=== PATIENT | female | born 1985 | race Caucasian/White ===

== ENCOUNTER 2021-07-08 20:24 | Emergency (ER) | payer OTHER, SELFPAY ==
[2021-07-08 21:51] VITALS: BP 119/93; PULSE 72; RESP 18; TEMP 36.8; O2SAT 99; BMI 33.3
--- NOTE | 2021-07-08 22:25 | ED.GENADULT ---
HPI - General Adult General Chief complaint: General Medical Stated complaint: dental pain/rash Time Seen by Provider: 07/08/21 22:15 Source: patient Mode of arrival: ambulatory Limitations: no limitations History of Present Illness HPI narrative: 36 y/o female presenting with multiple complaints. She reports several days of left lower dental pain, worse with chewing. She has a known broken tooth in this location and has an appointment with her dentist on Tuesday. She is worried she won't make it until then because of the pain. No fevers or facial swelling. She also c/o bilateral itchy rash in both of her underarms. It is red, raised and itchy. No new deodorant, lotions, soaps or creams. MD complaint: dental pain and rash Onset (ago): day(s) (2) Location: face, left, right and upper extremity Radiation: non-radiation Severity: moderate Severity scale (1-10): 6 Quality: aching Pain Consistency: constant Relieving factors: none Exacerbating factors: none Associated symptoms: cough and rash Treatments prior to arrival: NSAID Related Data Previous Rx's Medication Instructions Recorded hydrocortisone 2.5 % topical cream 1 appl TOPICAL TID #28 g 07/08/21 ibuprofen 600 mg tablet 600 mg PO Q8H PRN #20 tab 07/08/21 penicillin V potassium 500 mg 500 mg PO TID 7 Days #21 tab 07/08/21 tablet tramadol 50 mg tablet 50 mg PO Q8H PRN #6 tab 07/08/21 Allergies Allergy/AdvReac Type Severity Reaction Status Date / Time No Known Allergies Allergy Verified 07/08/21 21:50 [No Known Allergies*] Review of Systems Review of Systems: Constitutional: No Fever, No Chills ENT/Mouth: No sore throat, +dental pain Eyes: No Eye Pain, No Swelling, No Redness Cardiovascular: No Chest Pain, No SOB, No Orthopnea, No Edema Respiratory: No Cough, No Sputum, No Wheezing, No dyspnea Gastrointestinal: No Nausea, No Vomiting, No Diarrhea, No abdominal Pain Genitourinary: No Dysuria, No Urinary Frequency, No Hematuria Musculoskeletal: No joint pain, No Myalgias Skin: No Skin Lesions, + rash Neuro: No Weakness, No Numbness, No Dizziness, No Headache Heme/Lymph: No Bruising, No Lymphadenopathy PMF Past Medical History Medical History (Updated 07/09/21 @ 00:01 by Paul Francis) No pertinent past medical history Social History Social History Advance Directives: No Advance Directives Information Provided: No Patient : No Physical Exam Vital Signs: Vital Signs: Last Vital Signs Temp 98.2 F 07/08/21 21:51 Pulse 72 07/08/21 21:51 Resp 18 07/08/21 21:51 BP 119/93 H 07/08/21 21:51 Pulse Ox 99 07/08/21 21:51 Body Mass Index 33.3 Appearance: Alert. Oriented X3. No acute distress. Eyes: Pupils equal, round and reactive to light. ENT: Pharynx normal. Left 3rd molar broken with exposed dentin, decaying tooth with associated gingival tenderness and erythema, no fluctuance Neck: Normal inspection. Neck supple. CVS: Normal heart rate and rhythm. Pulses normal. Respiratory: No respiratory distress. Breath sounds normal. Abdomen: Soft and nontender. +BS x4 Skin: Skin warm and dry. Normal skin color. Normal skin turgor. Bilateral axillary areas with maclopapular erythematous rash Extremities: No lower extremity edema. Neuro: Oriented X 3. Nonfocal Course Course Course Narrative: 36 y/o female presenting with dental pain and an axillary rash. No evidence of dental abscess. Will start on antibiotics, NSAID and pain meds until she can be seen by her dentist on Tuesday. Axillary rash is consistent with contact dematits, will start topical steroids. No need for systemic at this time. She is stable for d/c home with outpatient follow up. Critical Care Time Critical Care Time Critical Care Time: No Discharge Plan Discharge Clinical Impression: Toothache Patient Disposition: Home, Self-Care Instructions: Toothache (ED) Additional Instructions: Take all of the medications as prescribed. Follow up with your dentist JIM. Prescriptions: New penicillin V potassium 500 mg tablet 500 mg PO TID 7 Days Qty: 21 RF: 0 hydrocortisone 2.5 % cream 1 appl topical TID Qty: 28 RF: 0 ibuprofen 600 mg tablet 600 mg PO Q8H PRN (Reason: pain) Qty: 20 RF: 0 tramadol 50 mg tablet 50 mg PO Q8H PRN (Reason: pain) Qty: 6 RF: 0 Interventions: ED Discharge Assessment Last Done: 07/08/21 23:57 Discharge Date/Time: 07/08/21 23:57
[2021-07-08] MEDS: Penicillin V Potassium 250 MG TABLET 500 MG PO (23:20)
[2021-07-08] MEDS: Ibuprofen 600 MG TABLET PO (23:20)
== END 2021-07-08 23:57 | disposition home or self-care (01) ==
PROVIDERS: Emergency Provider Internal Medicine; PCP Internal Medicine
DX: K08.89 Other specified disorders of teeth and supporting structures (principal); Z79.899 Other long term (current) drug therapy
CPT/HCPCS: 99283

== ENCOUNTER 2021-10-30 11:34 | Outpatient (REF) | payer OTHER, SELFPAY ==
[2021-10-30 12:50] LABS: Binax Internal Control QC Valid; Binax Now Covid-19 Ag Negative (Negative)
== END 2021-10-30 11:35 | disposition home or self-care (01) ==
LOC: HO.LAB 11:34
PROVIDERS: Visit Provider Internal Medicine
DX: Z20.822 Contact with and (suspected) exposure to COVID-19 (principal)
CPT/HCPCS: 36415; C9803

== ENCOUNTER → 2022-11-24 11:08 | Outpatient (BNVA) | payer OTHER, SELFPAY | PROVIDERS: PCP Internal Medicine; Visit Provider Physician Assistant Surgical | DX: Z13.89 Encounter for screening for other disorder (principal) ==

== ENCOUNTER → 2022-11-26 09:56 | Outpatient (BNVA) | payer OTHER, SELFPAY | PROVIDERS: PCP Internal Medicine; Referring Provider Internal Medicine; Visit Provider Physician Assistant Surgical | DX: E66.9 Obesity, unspecified (principal); Z68.35 Body mass index [BMI] 35.0-35.9, adult | CPT/HCPCS: 99202 ==

== ENCOUNTER 2022-12-02 09:04 | Outpatient (REF) | payer OTHER, SELFPAY ==
--- NOTE | ~2022-12-02 | XR_ITS ---
EXAMINATION: XR chest 2V CLINICAL INFORMATION: Reason for Exam E66.9 - Obesity, unspecified COMPARISON: None TECHNIQUE: 2 views of the chest FINDINGS: Clear lungs. No pneumothorax or pleural effusion. Normal cardiomediastinal silhouette. XR/XR chest 2V IMPRESSION: * Clear lungs.
--- NOTE | 2022-12-02 09:08 | ECG_ITS ---
Test Reason : E66.9 Obesity Blood Pressure : / mmHG Vent. Rate : 089 BPM Atrial Rate : 089 BPM P-R Int : 126 ms QRS Dur : 088 ms QT Int : 344 ms P-R-T Axes : 048 046 -01 degrees QTc Int : 418 ms Normal sinus rhythm Normal ECG No previous ECGs available Referred By: Guillermo Thorne Electronically Signed By:SARAH ORTIZ MD
[2022-12-02 09:25] LABS: MANUAL DIFF FLAG NO
[2022-12-02 09:47] LABS: Basophils Percent Auto 0.5 % (0-2); Eosinophils Absolute Auto 0.1 X10*3/uL (0.0-0.4); Eosinophils Percent Auto 1.3 % (0-4); Hematocrit 37.8 % (37.0-47.0); Hemoglobin 12.5 g/dl (12.0-16.0); Imm Gran Abs Auto 0.03 X10*3/uL (0.00-0.03); Imm Gran Pct Auto 0.4 % (0.0-0.4); Lymphocytes Absolute Auto 1.4 X10*3/uL (1.2-4.9); Lymphocytes Percent Auto 16.3 % (20-40); Mean Corpuscular HGB Conc 33.1 g/dl (31.0-35.0); Mean Corpuscular Hemoglobin 27.7 pg (27.0-33.0); Mean Corpuscular Volume 83.8 fL (80.0-98.0); Monocytes Absolute Auto 0.7 X10*3/uL (0.1-1.2); Monocytes Percent Auto 7.8 % (2-11); Neutrophils Absolute Auto 6.2 x10*3/uL (2.0-8.3); Neutrophils Percent Auto 73.7 % (45-73); Platelet Count 153 X10*3/uL (160-400); Red Blood Count 4.51 X10*6/uL (4.20-5.50); Red Cell Distribution Width 13.4 % (11.0-16.0); White Blood Count 8.4 X10*3/uL (4.8-10.8)
[2022-12-02 10:50] LABS: Estimated Average Glucose 94 mg/dL; Hemoglobin A1c % 4.9 %
[2022-12-02 10:59] LABS: Alanine Aminotransferase 71 U/L (0-31); Albumin Level 4.5 g/dL (3.5-5.0); Alkaline Phosphatase 66 U/L (39-117); Anion Gap 13 (12-20); Aspartate Amino Transferase 33 U/L (5-31); Bilirubin Total 1.3 mg/dL (0.0-1.0); Blood Urea Nitrogen 20 mg/dL (9-16); Calcium 9.6 mg/dL (8.4-10.2); Carbon Dioxide 26 mmol/L (22-29); Chloride 104 mmol/L (96-108); Cholesterol 165 mg/dL; Estimated Glomerular Filt Rate > 60; Glucose Random 85 mg/dL (60-115); HDL Cholesterol 44 mg/dL; Iron 46 mcg/dL (30-160); LDL Cholesterol Calculated 85 mg/dl; Percent Iron Saturation 15 % (15-50); Potassium 4.4 mmol/L (3.3-5.1); Sodium 139 mmol/L (135-145); Total Iron Binding Capacity 302 mcg/dL (228-428); Total Protein 7.8 g/dL (6.5-8.0); Triglycerides 182 mg/dL; Unsaturated Iron Binding 256 ug/dL
[2022-12-02 11:32] LABS: Ferritin 182 ng/mL (10-122); Folate 13.6 ng/mL (> or = 4.0); Insulin 11 uU/mL (2-29); TSH reflex Free T4 0.55 uIU/mL (0.32-4.0); Vitamin B12 492 pg/mL (200-900)
[2022-12-06 13:14] LABS: Calcium (PTHI) 9.6 mg/dL (8.6-10.2); PTHI 48 pg/mL (16-77)
[2022-12-07 00:19] LABS: Zinc 74 mcg/dL (60-130)
[2022-12-09 01:03] LABS: Vitamin A 49 mcg/dL (38-98)
[2022-12-10 16:42] LABS: Vitamin B1 10 nmol/L (8-30)
== END 2022-12-02 09:05 | disposition home or self-care (01) ==
LOC: HO.XRAY 09:04
PROVIDERS: PCP Internal Medicine; Visit Provider Physician Assistant Surgical
DX: E66.9 Obesity, unspecified (principal)
CPT/HCPCS: 36415; 71046; 80053; 80061; 82306; 82607; 82728; 82746; 83036; 83525; 83540; 83970; 84425; 84443; 84590; 84630; 85025; 86140; 93005

== ENCOUNTER → 2022-12-20 09:41 | Outpatient (BNVA) | payer MEDICAID, SELFPAY | PROVIDERS: PCP Internal Medicine; Visit Provider Dietitian, Registered | DX: E66.9 Obesity, unspecified (principal); F41.8 Other specified anxiety disorders; Z68.34 Body mass index [BMI] 34.0-34.9, adult | CPT/HCPCS: 97802 ==

== ENCOUNTER → 2022-12-28 09:42 | Outpatient (BNVA) | payer OTHER, MEDICAID, SELFPAY | PROVIDERS: PCP Internal Medicine; Visit Provider Counselor Mental Health | DX: F33.1 Major depressive disorder, recurrent, moderate (principal); E66.9 Obesity, unspecified | CPT/HCPCS: 90791 ==

== ENCOUNTER → 2022-12-31 11:06 | Outpatient (BNVA) | payer MEDICAID, SELFPAY | PROVIDERS: Visit Provider Physician Assistant Surgical | DX: Z11.0 Encounter for screening for intestinal infectious diseases (principal); E66.9 Obesity, unspecified; Z68.33 Body mass index [BMI] 33.0-33.9, adult | CPT/HCPCS: 99211; 99212 ==

== ENCOUNTER 2022-12-31 18:46 | Outpatient (REF) | payer OTHER, SELFPAY ==
[2023-01-02 12:07] LABS: H Pylori Breath Test Negative (Negative)
== END 2022-12-31 18:47 | disposition home or self-care (01) ==
LOC: HO.US 18:46
PROVIDERS: Visit Provider Physician Assistant Surgical
DX: Z01.818 Encounter for other preprocedural examination (principal); E66.9 Obesity, unspecified; K21.9 Gastro-esophageal reflux disease without esophagitis
CPT/HCPCS: 36415; 83013

== ENCOUNTER → 2023-01-05 08:54 | Outpatient (BNVA) | payer MEDICAID, SELFPAY | PROVIDERS: Visit Provider Surgery | DX: E66.9 Obesity, unspecified (principal); E78.00 Pure hypercholesterolemia, unspecified; F33.1 Major depressive disorder, recurrent, moderate; Z68.33 Body mass index [BMI] 33.0-33.9, adult; Z72.0 Tobacco use | CPT/HCPCS: 99212 ==

== ENCOUNTER → 2023-01-18 13:13 | Outpatient (BNVA) | payer MEDICAID, SELFPAY | PROVIDERS: Visit Provider Dietitian, Registered | DX: E66.9 Obesity, unspecified (principal); F41.8 Other specified anxiety disorders; Z68.32 Body mass index [BMI] 32.0-32.9, adult; Z71.3 Dietary counseling and surveillance | CPT/HCPCS: 97803 ==

== ENCOUNTER 2023-01-24 08:17 | Outpatient (REF) | payer MEDICAID, SELFPAY ==
--- NOTE | ~2023-01-24 | FL_ITS ---
PROCEDURE: XR FLUOROSCOPY UPPER GI WITH AIR CLINICAL INFORMATION: Obesity. COMPARISON: None available. TECHNIQUE: Routine upper GI air-contrast study was performed in upright and lying position. FINDINGS: Following oral administration of thick barium and effervescent granules there is normal progression of bolus from the oral cavity through the pharynx, esophagus into stomach without any obstruction or narrowing. No laryngeal penetration, aspiration or retention of barium in the pharynx. There is a small hiatal hernia in upright view. On placing patient supine and prone lying there is a small hiatal hernia with moderate gastroesophageal reflux. There is thickened mucosal pattern of the stomach without secretions likely from underlying acidity. The course, caliber and peristalsis of stomach, duodenal bulb and the sweep are normal. FLUOROSCOPY TIME: 1.1 minute DOSE AREA PRODUCT: 22.7 uGy-m2 (microgray-meter squared) FL/FL upper GI w air IMPRESSION: Small hiatal hernia with [id number] gastroesophageal reflux. Suspect hyperacidity.
== END 2023-01-24 08:18 | disposition home or self-care (01) ==
LOC: HO.XRAY 08:17
PROVIDERS: Visit Provider Physician Assistant Surgical
DX: E66.9 Obesity, unspecified (principal)
CPT/HCPCS: 74246

== ENCOUNTER → 2023-01-26 09:08 | Outpatient (BNVA) | payer MEDICAID, SELFPAY | PROVIDERS: Visit Provider Physician Assistant Surgical | DX: E66.9 Obesity, unspecified (principal); Z68.33 Body mass index [BMI] 33.0-33.9, adult | CPT/HCPCS: 99212 ==

== ENCOUNTER → 2023-01-31 08:51 | Outpatient (BNVA) | payer MEDICAID, SELFPAY | PROVIDERS: Visit Provider Surgery | DX: E66.9 Obesity, unspecified (principal); E78.00 Pure hypercholesterolemia, unspecified; F33.1 Major depressive disorder, recurrent, moderate; L30.9 Dermatitis, unspecified | CPT/HCPCS: 99212 ==

== ENCOUNTER → 2023-02-01 09:30 | Outpatient (BNVA) | payer OTHER, MEDICAID, SELFPAY | PROVIDERS: Visit Provider Counselor Mental Health ==

== ENCOUNTER → 2023-03-01 08:29 | Outpatient (BNVA) | payer MEDICAID, SELFPAY | PROVIDERS: Visit Provider Surgery | DX: E66.9 Obesity, unspecified (principal); E78.00 Pure hypercholesterolemia, unspecified; L30.9 Dermatitis, unspecified; F17.290 Nicotine dependence, other tobacco product, uncomplicated; F33.1 Major depressive disorder, recurrent, moderate; Z68.33 Body mass index [BMI] 33.0-33.9, adult | CPT/HCPCS: 99212 ==

== ENCOUNTER → 2023-03-15 09:40 | Outpatient (BNVA) | payer MEDICAID, SELFPAY | PROVIDERS: Visit Provider Physician Assistant Surgical | DX: E66.9 Obesity, unspecified (principal); Z68.33 Body mass index [BMI] 33.0-33.9, adult; Z72.0 Tobacco use | CPT/HCPCS: 99212 ==

== ENCOUNTER → 2023-03-25 12:52 | Outpatient (BNVA) | payer MEDICAID, SELFPAY | PROVIDERS: Visit Provider Surgery | DX: E66.9 Obesity, unspecified (principal); E78.00 Pure hypercholesterolemia, unspecified; F33.1 Major depressive disorder, recurrent, moderate; L30.9 Dermatitis, unspecified; Z72.0 Tobacco use; Z68.34 Body mass index [BMI] 34.0-34.9, adult | CPT/HCPCS: 99212 ==

== ENCOUNTER 2023-04-05 10:30 | Outpatient (REF) | payer MEDICAID, SELFPAY ==
--- NOTE | ~2023-04-05 | US_ITS ---
EXAMINATION: US COMPLETE ABDOMEN WITH LIVER ELASTOGRAPHY CLINICAL INFORMATION: Obesity. COMPARISON: None available. TECHNIQUE: Real-time imaging of the abdominal viscera. Noninvasive ultrasound liver fibrosis assessment is performed using Julita ElastPQ point quantification shear wave elastography (2D-SWE) with a C5-2 MHz transducer. Multiple elastography samples are obtained. FINDINGS: PANCREAS: The visualized pancreatic head are normal in appearance. The remainder of the pancreas is obscured from visualization by the overlying bowel gas. ABDOMINAL AORTA: The proximal, middle, and distal aortic segments are normal in caliber. INFERIOR VENA CAVA: Visualized portions are normal. LIVER: The liver demonstrates normal size, contour and diffuse increased echogenicity. No focal lesion or intrahepatic biliary duct dilatation. The right lobe measures 17.6 cm in length. The left lobe measures 10.2 cm in length. Portal flow is hepatopedal. Shear wave liver elastography median stiffness is 1.47 m/s (reference: normal median stiffness is 1.3 m/s or less). IQR/median stiffness to assess sampling precision is 0.06 (reference: good quality data set is IQR/median stiffness of 0.15 or less). GALLBLADDER: Normal. The gallbladder is physiologically distended without evidence of stones, sludge, polyps, wall thickening or pericholecystic fluid. COMMON BILE DUCT: Normal in caliber measuring 0.2 cm in diameter. RIGHT KIDNEY: Normal. No hydronephrosis. No renal calculi or focal parenchymal lesions. The kidney measures 9.4 cm in maximum dimension. LEFT KIDNEY: Normal. No hydronephrosis. No renal calculi or focal parenchymal lesions. The kidney measures 11.2 cm in maximum dimension. SPLEEN: Normal. The spleen measures 13.9 cm in maximum dimension. FREE FLUID: None. US/US abdomen comp w elastography IMPRESSION: Diffuse hepatic steatosis without focal lesion. Borderline splenomegaly. Rest of the abdominal ultrasound is unremarkable. 2. Liver elastography: Median liver stiffness measures 1.47 m/s corresponding to cACLD (ruled out). REFERENCE: Society of Radiologists in Ultrasound Liver Stiffness Thresholds (2019): LIVER STIFFNESS THRESHOLDS: *Liver Stiffness equal or less than 1.3 m/s: High probability of being normal. *Liver Stiffness less than 1.7 m/s: In the absence of other known clinical signs, rules out compensated advanced chronic liver disease. *Liver Stiffness 1.7-2.1 m/s: Suggestive of compensated advanced chronic liver disease but need further test for confirmation. *Liver Stiffness over 2.1 m/s: Rules in compensated advanced chronic liver disease. *Liver Stiffness over 2.4 m/s: Suggestive of clinically significant portal hypertension. QUALITY OF DATA SET: *IQR/Median value equal or less than 0.15 implies a quality data set. *IQR/Median value over 0.15 implies a poor quality data set. SIGNIFICANT CHANGE FROM PRIOR EXAM: Significant change if liver stiffness measurement is 10% or greater from prior exam. OTHER CONSIDERATIONS: The stage of liver fibrosis may be overestimated in the setting of acute hepatitis, liver inflammation, elevated liver function tests, hepatic vascular congestion, obstructive cholestasis, non-fasting state, and infiltrative diseases such as amyloidosis and lymphoma. In some patients with NAFLD, the liver stiffness thresholds for compensated advanced chronic liver disease may be lower. In causes other than viral hepatitis and NAFLD, liver stiffness thresholds are not well established.
== END 2023-04-05 10:31 | disposition home or self-care (01) ==
LOC: HO.US 10:30
PROVIDERS: Visit Provider Physician Assistant Surgical
DX: Z01.818 Encounter for other preprocedural examination (principal); E66.9 Obesity, unspecified; K21.9 Gastro-esophageal reflux disease without esophagitis
CPT/HCPCS: 76705; 76981

== ENCOUNTER 2023-04-27 09:32 | Outpatient (REF) | payer MEDICAID, SELFPAY ==
[2023-05-03 20:43] LABS: Cotinine, U <2 ng/mL; Nicotine, U <2 ng/mL
== END 2023-04-27 09:33 | disposition home or self-care (01) ==
LOC: HO.LAB 09:32
PROVIDERS: PCP Student in an Organized Health Care Education/Training Program; Visit Provider Surgery
DX: E66.9 Obesity, unspecified (principal); E78.00 Pure hypercholesterolemia, unspecified; F33.1 Major depressive disorder, recurrent, moderate; N76.0 Acute vaginitis; Z72.0 Tobacco use; Z68.34 Body mass index [BMI] 34.0-34.9, adult
CPT/HCPCS: 80323; 99212

== ENCOUNTER 2023-05-06 13:10 | Outpatient (AMB) | payer MEDICAID, SELFPAY ==
[2023-05-06 13:12] VITALS: BP 140/73; PULSE 77; TEMP 36.6; O2SAT 97; BMI 34.4
--- NOTE | 2023-05-06 13:12 | A.OFFVIS_ITS ---
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 They were last seen in the office on 03/15/23, recorded weight at that time was 185 pounds, with a BMI of 33.8. Today's weight is 188 pounds and BMI is 34.4. There has been a weight loss of 3.6 pounds since initiating the surgical weight loss program on 11/26/22 with a total body weight loss of 1.87 %. Pre op work up completed as follows: SWL classes:? 05/31 BH appts: cleared-02/01/23 ? ? RD appts: cleared-01/18/23 Labs: 12/02/22-low D, slightly low plt H. pylori: 12/31/22 CXR: 12/02/22-nad EK12/02/22-normal ABD U/S: 03/16/23 UGI: 01/24/23-sm HH, mod-large GERD The patient reports she is no longer smoking and has had increased anxiety and she just saw psych and is going to have a change in her medication. She has been eating more due to the anxiety. She is snacking between meal plan. chips, potatoes, cheese. She quit smoking 3 days ago Current meal plan includes: 3 Orgain shakes, (2 scoop in 8-10 oz low fat unsweetened almond milk in the first shake, and 1 scoop in the next two). First shake at 7am-9am Second shake at 11am-1pm Dinner at 4pm (7 forks of protein and 7 forks of salad/vegetables). Third shake at 8pm-10pm. Drinking 64 oz of water Current exercise plan includes: stationary bike, or treadmill, 3 x per week, 250-325 calories PFSH Medical History No pertinent past medical history Surgical History Hx of section Family History Mother Hypertension Diabetes High cholesterol Father Diabetes High cholesterol Hypertension Brother High cholesterol Sister No problems noted. Daughter No problems noted. Son Chromosome 7q11.23 duplication syndrome Social History Alcohol intake: never Patient Tobacco Use Status: Former Tobacco user Tobacco use type: Smokeless Tobacco Review of Systems Const All systems reviewed & are unremarkable except as noted in HPI and below Physical Exam Const General: healthy appearing and no acute distress Resp Effort & Inspection: normal respiratory effort Auscultation: clear to auscultation bilaterally Cardio Rate: regular rate Rhythm: regular rhythm GI Auscultation: normal bowel sounds Extrem General: Yes normal to inspection Assessment & Plan Assessment & Plan (1) Obesity (BMI 30-39.9): Code(s): E66.9 - Obesity, unspecified Plan: Nicotine test confirmed quit smoking Encouraged to stick to the meal plan States she cannot get to the gym due to childcare but has a bike at home Encouraged to use stationary bike at home daily for 400 calories. RTC 1 month Text if any questions Expect 10 pound loss in next month Coding Level of Care Code Est Pt Level 3 (21416) Diagnoses Obesity (BMI 30-39.9) E66.9
== END 2023-05-06 13:30 | disposition home or self-care (01) ==
PROVIDERS: Visit Provider Physician Assistant Surgical
DX: E66.9 Obesity, unspecified (principal)
CPT/HCPCS: 99213

== ENCOUNTER → 2023-05-06 13:10 | Outpatient (BNVA) | payer MEDICAID, SELFPAY | PROVIDERS: Visit Provider Physician Assistant Surgical | DX: E66.9 Obesity, unspecified (principal); Z68.34 Body mass index [BMI] 34.0-34.9, adult | CPT/HCPCS: 99213 ==

== ENCOUNTER 2023-06-03 08:14 | Outpatient (AMB) | payer MEDICAID, SELFPAY ==
[2023-06-03 08:18] VITALS: BP 137/81; PULSE 78; TEMP 36.4; O2SAT 96; BMI 34.2
--- NOTE | 2023-06-03 08:18 | MHC.OFFVISWM ---
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 They were last seen in the office on 05/06/23, recorded weight at that time was 188 pounds, with a BMI of 34.4.? Today's weight is 187.6 pounds and BMI is 34.3.? There has been a weight loss of 4 pounds since initiating the surgical weight loss program on 11/26/22 with a total body weight loss of 2 %. Pre op work up completed as follows: SWL classes:? 05/31 BH appts: cleared-02/01/23 ? ? RD appts: cleared-01/18/23 Labs: 12/02/22-low D, slightly low plt H. pylori: 12/31/22 CXR: 12/02/22-nad EK12/02/22-normal ABD U/S: 03/16/23 UGI: 01/24/23-sm HH, mod-large GERD The patient reports she is no longer smoking and has had increased anxiety.? She has been having 2 shakes (2 scoops, 1 scoop) and meal. Some cookies and chips between She just finished a 2 week course of prednisone for ecezma. Current meal plan includes: 3 Orgain shakes, (2 scoop in 8-10 oz low fat unsweetened almond milk in the first shake, and 1 scoop in the next two). First shake at 7am-9am Second shake at 11am-1pm Dinner at 4pm (7 forks of protein and 7 forks of salad/vegetables). Third shake at 8pm-10pm. Drinking 64 oz of water Current exercise plan includes: stationary bike, or treadmill, 2-3 x per week, 325 calories PFS Medical History No pertinent past medical history Surgical History Hx of section Family History Mother Hypertension Diabetes High cholesterol Father Diabetes High cholesterol Hypertension Brother High cholesterol Sister No problems noted. Daughter No problems noted. Son Chromosome 7q11.23 duplication syndrome Social History Alcohol intake: never Patient Tobacco Use Status: Former Tobacco user Tobacco use type: Smokeless Tobacco Review of Systems Const All systems reviewed & are unremarkable except as noted in HPI and below Physical Exam Vital Signs: Last Vital Signs Temp 97.6 F 06/03/23 08:18 Pulse 78 06/03/23 08:18 BP 137/81 06/03/23 08:18 Pulse Ox 96 06/03/23 08:18 Oxygen Delivery Method Room Air 06/03/23 08:18 BMI result Body Mass Index 34.2 Const General: healthy appearing and no acute distress Resp Effort & Inspection: normal respiratory effort Auscultation: clear to auscultation bilaterally Cardio Rate: regular rate Rhythm: regular rhythm GI Auscultation: normal bowel sounds Extrem General: Yes normal to inspection Assessment & Plan Assessment & Plan (1) Obesity (BMI 30-39.9): Code(s): E66.9 - Obesity, unspecified Plan: Discussed 6 months and 4 pound weight loss. She did have mult courses of prednisone and that didn't help She states she wants one more chance to prove she can commit to the program. Will have her RTC 6 weeks with goal of 12-18 pound loss Discussed sticking to the plan Discussed increasing exercise for goal of 2000 yanira per week. Coding Level of Care Code Est Pt Level 3 (31214) Diagnoses Obesity (BMI 30-39.9) E66.9
== END 2023-06-03 08:55 | disposition home or self-care (01) ==
PROVIDERS: Visit Provider Physician Assistant Surgical
DX: E66.9 Obesity, unspecified (principal)
CPT/HCPCS: 99213

== ENCOUNTER → 2023-06-03 08:14 | Outpatient (BNVA) | payer MEDICAID, SELFPAY | PROVIDERS: Visit Provider Physician Assistant Surgical | DX: E66.9 Obesity, unspecified (principal); Z68.34 Body mass index [BMI] 34.0-34.9, adult | CPT/HCPCS: 99212; 99213 ==

== ENCOUNTER 2023-06-06 10:05 | Outpatient (REF) | payer MEDICAID, SELFPAY ==
[2023-06-06 11:46] LABS: MANUAL DIFF FLAG NO
[2023-06-06 12:13] LABS: Basophils Percent Auto 0.4 % (0-2); Eosinophils Absolute Auto 0.2 X10*3/uL (0.0-0.4); Eosinophils Percent Auto 2.3 % (0-4); Hematocrit 39.6 % (37.0-47.0); Hemoglobin 13.1 g/dl (12.0-16.0); Imm Gran Abs Auto 0.02 X10*3/uL (0.00-0.03); Imm Gran Pct Auto 0.3 % (0.0-0.4); Lymphocytes Absolute Auto 1.5 X10*3/uL (1.2-4.9); Lymphocytes Percent Auto 22.2 % (20-40); Mean Corpuscular HGB Conc 33.1 g/dl (31.0-35.0); Mean Corpuscular Hemoglobin 27.1 pg (27.0-33.0); Mean Platelet Volume 12.2 fL (9.4-12.3); Monocytes Absolute Auto 0.6 X10*3/uL (0.1-1.2); Neutrophils Absolute Auto 4.5 x10*3/uL (2.0-8.3); Neutrophils Percent Auto 65.8 % (45-73); Platelet Count 193 X10*3/uL (160-400); Red Blood Count 4.83 X10*6/uL (4.20-5.50); White Blood Count 6.9 X10*3/uL (4.8-10.8)
[2023-06-06 12:25] LABS: Estimated Average Glucose 88 mg/dL; Hemoglobin A1c % 4.7 %
[2023-06-06 13:02] LABS: C Reactive Protein 0.78 mg/dL (< or = 0.50)
[2023-06-06 13:09] LABS: Erythrocyte Sedimentation Rate 23 MM/HR (0-20)
[2023-06-06 13:10] LABS: Alanine Aminotransferase 30 U/L (0-31); Albumin Level 4.3 g/dL (3.5-5.0); Alkaline Phosphatase 65 U/L (39-117); Anion Gap 13 (12-20); Aspartate Amino Transferase 21 U/L (5-31); Bilirubin Total 0.9 mg/dL (0.0-1.0); Blood Urea Nitrogen 13 mg/dL (9-16); Calcium 9.7 mg/dL (8.4-10.2); Carbon Dioxide 24 mmol/L (22-29); Chloride 107 mmol/L (96-108); Cholesterol 228 mg/dL; Estimated Glomerular Filt Rate > 60; Glucose Random 79 mg/dL (60-115); HDL Cholesterol 38 mg/dL; LDL Cholesterol Calculated 139 mg/dl; Potassium 3.9 mmol/L (3.3-5.1); Sodium 140 mmol/L (135-145); TSH reflex Free T4 0.55 uIU/mL (0.32-4.0); Total Protein 8.5 g/dL (6.5-8.0); Triglycerides 259 mg/dL
[2023-06-06 13:14] LABS: Rheumatoid Factor < 13.0 IU/mL (<15.0)
[2023-06-07 04:35] LABS: Syphilis Screen Nonreactive (Nonreactive)
[2023-06-07 05:18] LABS: HBS Num1 46.63 mIU/mL (0-7.99); HBc Num1 0.12 S/CO (0.00-0.79); HBsAGNum1 0.32 S/CO (0.00-0.99); HIV AB/AG Nonreactive (Nonreactive); HIV Num 1 0.06 S/CO (0.00-0.99); Hepatitis B Core Antibody Nonreactive (Nonreactive); Hepatitis B Surface Antigen Negative (Negative); ~Hepatitis B Surface Antibody REACTIVE (Nonreactive)
[2023-06-07 05:22] LABS: ~HepC Num1 0.09 S/CO (0.00-0.79); ~Hepatitis C Antibody Nonreactive (Nonreactive)
[2023-06-10 01:34] LABS: VITAMIN D (1,25 OH) D3 49 pg/mL; Vit D (1,25-Dihydroxy) Total 49 pg/mL (18-72); Vitamin D (1,25 OH) D2 <8 pg/mL
[2023-06-10 13:18] LABS: Anti Nuclear Antibody Screen NEGATIVE (NEGATIVE)
== END 2023-06-06 10:06 | disposition home or self-care (01) ==
LOC: HO.HHCL 10:05
PROVIDERS: PCP Student in an Organized Health Care Education/Training Program; Visit Provider Internal Medicine
DX: Z00.00 Encounter for general adult medical examination without abnormal findings (principal); Z11.4 Encounter for screening for human immunodeficiency virus [HIV]; L30.9 Dermatitis, unspecified; E78.5 Hyperlipidemia, unspecified
CPT/HCPCS: 36415; 80053; 80061; 82652; 83036; 84443; 85025; 85652; 86038; 86140; 86431; 86704; 86706; 86780; 86803; 87340; 87389

== ENCOUNTER 2023-06-24 10:16 | Outpatient (REF) | payer MEDICAID, SELFPAY ==
[2023-06-24 11:40] LABS: Appearance Urine Clear; Color Urine Yellow; Glucose Urine UA Negative (Negative); Leukocyte Esterase Urine Negative (Negative); Nitrite Urine Negative (Negative); Specific Gravity - Urine 1.015 (1.005-1.025); Urine Blood Negative (Negative); Urine Ketones Negative (Negative); Urine Protein Negative (Neg-Trace)
[2023-06-24 11:44] LABS: Bacteria Urine None Seen (None Seen); Hyaline Casts Urine 0-2 /LPF (0-2); RBC Urine 0-2 /HPF (0-2); Squamous Epithelial Cell Urine 0-2 /HPF (0-2); WBC Urine 0-5 /HPF (0-5)
[2023-06-24 12:27] LABS: Alanine Aminotransferase 29 U/L (0-31); Albumin Level 4.2 g/dL (3.5-5.0); Alkaline Phosphatase 68 U/L (39-117); Anion Gap 14 (12-20); Aspartate Amino Transferase 19 U/L (5-31); Bilirubin Total 0.7 mg/dL (0.0-1.0); Blood Urea Nitrogen 20 mg/dL (9-16); Calcium 9.5 mg/dL (8.4-10.2); Carbon Dioxide 21 mmol/L (22-29); Chloride 106 mmol/L (96-108); Estimated Glomerular Filt Rate > 60; Glucose Random 115 mg/dL (60-115); Potassium 3.8 mmol/L (3.3-5.1); Sodium 137 mmol/L (135-145); Total Protein 8.2 g/dL (6.5-8.0)
[2023-06-28 15:58] LABS: Prot Elec - Albumin 4.3 g/dL (3.8-4.8); Prot Elec - Alpha1 0.3 g/dL (0.2-0.3); Prot Elec - Alpha2 0.7 g/dL (0.5-0.9); Prot Elec - Beta 1 0.5 g/dL (0.4-0.6); Prot Elec - Beta 2 0.5 g/dL (0.2-0.5); Prot Elec - Gamma 1.6 g/dL (0.8-1.7); Prot Elec - Total Protein 7.9 g/dL (6.1-8.1)
[2023-06-29 15:23] LABS: IgA 188 mg/dL (47-310); IgG 1870 mg/dL (600-1640); IgM 90 mg/dL (50-300)
[2023-06-30 07:53] LABS: PEU-Rand. Prot/Creat Ratio 150 mg/g creat (24-184); PEU-Random Ur. Gamma Globulin 0 %; PEU-Random Urine A1 Globulin 0 %; PEU-Random Urine A2 Globulin 0 %; PEU-Random Urine Albumin 100 %; PEU-Random Urine Beta Globulin 0 %; PEU-Random Urine Creatinine 60 mg/dL (20-275); PEU-Random Urine Protein 9 mg/dL (5-24)
== END 2023-06-24 10:17 | disposition home or self-care (01) ==
LOC: HO.HHCL 10:16
PROVIDERS: Visit Provider Student in an Organized Health Care Education/Training Program
DX: R77.9 Abnormality of plasma protein, unspecified (principal)
CPT/HCPCS: 80053; 81001; 82570; 82784; 84156; 84165; 84166; 86334

== ENCOUNTER 2023-07-22 09:37 | Outpatient (AMB) | payer MEDICAID, SELFPAY ==
[2023-07-22 09:06] VITALS: BMI 34.6
--- NOTE | 2023-07-22 09:06 | MHC.OFFVISWM ---
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 They were last seen in the office on 06/03/23, recorded weight at that time was 187 pounds, with a BMI of 34.2. Today's weight is 189 pounds and BMI is 34.6. There has been a weight loss of 2.6 pounds since initiating the surgical weight loss program on 11/26/22 with a total body weight loss of 1.3 %. Discussed at last visit that she has to be able to commit to her health and that the expectation is a 12-18 pound weight loss and to communicate weekly. Pre op work up completed as follows: SWL classes:? 05/31 BH appts: cleared-02/01/23 ? ? RD appts: cleared-01/18/23 Labs: 12/02/22-low D, slightly low plt H. pylori: 12/31/22 CXR: 12/02/22-nad EK12/02/22-normal ABD U/S: 03/16/23 UGI: 01/24/23-sm HH, mod-large GERD The patient reports she is no longer smoking and has had increased anxiety.? She is under increased stress as recently dx w Lupus. She has appt next week with derm for treatment. She has a therapist and is kathy to be seeing them more often now. Current meal plan includes: 3 Orgain shakes, (2 scoop in 8-10 oz low fat unsweetened almond milk in the first shake, and 1 scoop in the next two). First shake at 7am-9am Second shake at 11am-1pm Dinner at 4pm (7 forks of protein and 7 forks of salad/vegetables). Third shake at 8pm-10pm. Drinking 64 oz of water Current exercise plan includes: north in the last several weeks PFSH Medical History No pertinent past medical history Surgical History Hx of section Family History Mother Hypertension Diabetes High cholesterol Father Diabetes High cholesterol Hypertension Brother High cholesterol Sister No problems noted. Daughter No problems noted. Son Chromosome 7q11.23 duplication syndrome Social History Alcohol intake: never Patient Tobacco Use Status: Former Tobacco user Tobacco use type: Smokeless Tobacco Assessment & Plan Assessment & Plan (1) Obesity (BMI 30-39.9): Code(s): E66.9 - Obesity, unspecified Plan: Newly dx w Lupus and is going to w/d from the program at this time. May return in the future if she wishes. Telehealth Telehealth Location of provider rendering services: practice address Location of patient: address on file Patient Identification confirmed using: Name, : Yes Telehealth method: voice only Patient verbally consented to treatment: Yes Patient verbally consented to billing insurance company: Yes Patient informed of any privacy concerns related to visit: Yes Minutes spent on Phone/Video with Pt.: 10 Coding Level of Care Code Tele Est Pt Level 2 (22026) Diagnoses Obesity (BMI 30-39.9) E66.9 Time Spent (min) 12
== END 2023-07-22 09:42 | disposition home or self-care (01) ==
LOC: HO.HBS 09:37
PROVIDERS: PCP Student in an Organized Health Care Education/Training Program; Visit Provider Physician Assistant Surgical
DX: E66.9 Obesity, unspecified (principal)
CPT/HCPCS: 99212

== ENCOUNTER → 2023-07-22 09:37 | Outpatient (BNVA) | payer MEDICAID, SELFPAY | PROVIDERS: PCP Student in an Organized Health Care Education/Training Program; Visit Provider Physician Assistant Surgical ==

== ENCOUNTER 2023-07-29 09:36 | Outpatient (REF) | payer MEDICAID, SELFPAY ==
[2023-08-04 19:18] LABS: Glucose-6-Phosphate Dehydrogen 15.8 U/g Hgb (7.0-20.5)
== END 2023-07-29 09:37 | disposition home or self-care (01) ==
LOC: HO.HHCL 09:36
PROVIDERS: Visit Provider Internal Medicine
DX: L93.1 Subacute cutaneous lupus erythematosus (principal)
CPT/HCPCS: 36415; 82955; 86235

== ENCOUNTER 2023-08-31 08:53 | Outpatient (REF) | payer MEDICAID, SELFPAY ==
--- NOTE | ~2023-08-31 | XR_ITS ---
EXAMINATION: XR TIBIA AND FIBULA, LEFT CLINICAL INFORMATION: Left leg pain. COMPARISON: None available. TECHNIQUE: AP and lateral views of the left tibia and fibula were obtained. FINDINGS: Alignment is anatomic. Joint spaces are maintained. No displaced fracture or dislocation. No radiopaque foreign body. Focal soft tissue prominence distal anterior lower leg best seen on the lateral projection. XR/XR tibia fibula LT 2V IMPRESSION: Focal soft tissue prominence distal anterior lower leg without underlying bony abnormality.
== END 2023-08-31 08:54 | disposition home or self-care (01) ==
LOC: HO.HHCX 08:53
PROVIDERS: Visit Provider Student in an Organized Health Care Education/Training Program
DX: M79.605 Pain in left leg (principal)
CPT/HCPCS: 73590

== ENCOUNTER 2023-11-04 08:50 | Outpatient (REF) | payer MEDICAID, SELFPAY ==
[2023-11-04 12:22] LABS: Alanine Aminotransferase 14 U/L (0-31); Albumin Level 4.3 g/dL (3.5-5.0); Alkaline Phosphatase 67 U/L (39-117); Anion Gap 11 (12-20); Aspartate Amino Transferase 11 U/L (5-31); Bilirubin Total 0.4 mg/dL (0.0-1.0); Blood Urea Nitrogen 16 mg/dL (9-16); Calcium 9.3 mg/dL (8.4-10.2); Carbon Dioxide 24 mmol/L (22-29); Chloride 107 mmol/L (96-108); Estimated Glomerular Filt Rate > 60; Glucose Random 91 mg/dL (60-115); Potassium 3.9 mmol/L (3.3-5.1); Sodium 138 mmol/L (135-145); Total Protein 8.3 g/dL (6.5-8.0)
== END 2023-11-04 08:51 | disposition home or self-care (01) ==
LOC: HO.HHCL 08:50
PROVIDERS: Visit Provider Student in an Organized Health Care Education/Training Program
DX: I10 Essential (primary) hypertension (principal)
CPT/HCPCS: 36415; 80053

== ENCOUNTER 2023-11-30 15:56 | Outpatient (REF) | payer MEDICAID, SELFPAY ==
--- NOTE | ~2023-11-30 | XR_ITS ---
EXAMINATION: XR TIBIA AND FIBULA, LEFT CLINICAL INFORMATION: Pain after falling COMPARISON: None available. TECHNIQUE: AP and lateral views of the left tibia and fibula were obtained. FINDINGS: The bones and soft tissues are normal. No fracture. No osseous lesions. XR/XR tibia fibula LT 2V IMPRESSION: Normal left tibia and fibula.
== END 2023-11-30 15:57 | disposition home or self-care (01) ==
LOC: HO.HHCX 15:56
PROVIDERS: Visit Provider Internal Medicine
DX: M79.605 Pain in left leg (principal); Z91.81 History of falling
CPT/HCPCS: 73590

== ENCOUNTER 2024-02-13 10:05 | Outpatient (REF) | payer MEDICAID, SELFPAY ==
[2024-02-13 12:26] LABS: Cholesterol 215 mg/dL (<200); HDL Cholesterol 42 mg/dL (>40); LDL Cholesterol Calculated 117 mg/dL (<100); Triglycerides 281 mg/dL (<150)
== END 2024-02-13 10:06 | disposition home or self-care (01) ==
LOC: HO.HHCL 10:05
PROVIDERS: Visit Provider Student in an Organized Health Care Education/Training Program
DX: R03.0 Elevated blood-pressure reading, without diagnosis of hypertension (principal)
CPT/HCPCS: 36415; 80061

== ENCOUNTER → 2024-03-12 08:37 | Outpatient (REF) | payer MEDICAID, SELFPAY ==
--- NOTE | 2024-03-12 08:39 | CA_ITS ---
Transthoracic Echocardiogram Patient (Last, First, Middle): Aleta Baltazar, Gender: Female Date of : 1985 Age: 39 Procedure Date: 03/12/2024 Procedure Type: Transthoracic Echocardiogram Location: OP Height: 160.02 cm Weight: 91.17 kg BSA: 1.94 m2 Heart Rate: 68 bpm BP: 132 / 84 mmHg Fancy Stitcher: SB Referring MD: Darcie Joel MD Symptoms: R93.1 ABN.ECHO PT WITH HX OF LOW ef Study Quality: Adequate ECG Rhythm: Sinus Conclusions: - The left ventricular systolic function is low normal. The calculated ejection fraction is 54% by biplane method. - No obvious valvular pathology seen on this study. Findings Left Ventricle Normal left ventricular cavity size. There is normal left ventricular wall thickness. The left ventricular systolic function is low normal. The calculated ejection fraction is 54% by biplane method. There is no evidence of regional wall motion abnormalities. Diastolic function is normal for age. LV peak GLS -17.4% ( borderline reduced). Right Ventricle Normal right ventricular cavity size and systolic function. Atria Both atria are normal in size. Aortic Valve There is a normal trileaflet aortic valve. There is no aortic valve stenosis. There is no aortic valve regurgitation. Mitral Valve The mitral valve appears normal. There is no mitral valve regurgitation. There is no mitral valve stenosis. Pulmonic Valve The pulmonic valve is likely normal. Tricuspid Valve Normal tricuspid valve structure. There is trace tricuspid valve regurgitation. There is no evidence of pulmonary hypertension. Great Vessels The asc aorta and aortic arch are normal in size. Venous The inferior vena cava is normal in size and collapses greater than 50% with inspiration. Pericardium/Pleural There is no evidence of pericardial effusion. Prior Study Comparison No prior study available for comparison. Recommendations, Care & Conclusions No obvious valvular pathology seen on this study. Measurements 2D Linear Measurements IVSd: 0.96 0.6-0.9/0.6-1.0 cm LVIDd: 4.75 3.9-5.3/4.2-5.9 cm LVIDd Index: 2.45 2.4-3.2/2.2-3.1 cm/m2 LVIDs: 3.43 2.0-3.6 cm LVPWd: 0.76 0.7-1.1 cm LA Diam: 3.60 2.7-3.8/3.0-4.0 cm LAIDs Index: 1.86 1.5-2.3 cm/m2 LV Mass: 170.35 67-162/88-224 g LV Mass Index: 87.81 43-95/49-115 g/m2 LVOT Diam: 1.80 3.0+(-)1.3 cm 2D Systolic Function EF 4C: 57.00 >55% EF 2C: 53.20 >55% EF BiP: 54.00 >55% Mitral Valve MV Pk E: 1.15 MV PK A: 0.60 MV Decel Time: 118.00 E/A: 1.90 E'Lateral: 10.00 E'Medial: 9.46 E/E' Med: 12.20 E/E' Lat: 11.50 PHT: 35.00 MVA PHT: 6.29 Decel Starr: 9.70 Aortic Valve AoV Pk Geoff: 1.28 AoV Pk Grad: 7.00 CORAL: 1.94 LVOT LVOT Pk Geoff: 1.00 LVOT Mn Geoff: 0.69 LVOT VTI: 0.23 LVOT Pk Grad: 4.00 LVOT Mn Grad: 2.00 LVOT Diam: 1.80 LVOT Area: 2.54 Diastolic Function MV Pk E: 1.15 MV Pk A: 0.60 E/A: 1.90 E'Medial: 9.46 E/E' Med: 12.20 E' Laterial: 10.00 E/E' Lat: 11.50 Right Ventricle TAPSE (mm): 20.40 TVS' Geoff: 11.00 Tricuspid Valve TR Pk Geoff: 2.52 TR Pk Grad: 25.00 RA Press: 8.00 RVSP: 33.00 Great Vessels Aorta Sinus of Valsalva: 2.50 2.0-3.5 cm Ao Asc: 2.50 2.1-3.4 cm Ao Arch: 2.30 Pulmonary Veins Pulm Vein S/D 0.90 Pulmonary Valve PV Pk Geoff: 0.73 Peak PV Grad: 2.00 Updated in Other Vendor System with Status of Final Josh Silvestre MD electronically signed on 03/12/2024 11:55:09 AM with status of Final
== END ==
LOC: HO.CARD 08:37
PROVIDERS: PCP Student in an Organized Health Care Education/Training Program; Visit Provider Student in an Organized Health Care Education/Training Program
DX: R93.1 Abnormal findings on diagnostic imaging of heart and coronary circulation (principal)
CPT/HCPCS: 93306; 93356

== ENCOUNTER → 2024-03-12 08:39 | Outpatient (BNV) | payer MEDICAID, SELFPAY | PROVIDERS: PCP Student in an Organized Health Care Education/Training Program; Visit Provider Internal Medicine | DX: R93.1 Abnormal findings on diagnostic imaging of heart and coronary circulation (principal) | CPT/HCPCS: 93306; 93356 ==

== ENCOUNTER 2024-07-25 12:15 | Outpatient (REF) | payer MEDICAID, SELFPAY ==
[2024-07-25 14:28] LABS: C Reactive Protein 0.17 mg/dL (< or = 0.50)
[2024-07-25 14:30] LABS: Appearance Urine Clear; Color Urine Yellow; Glucose Urine UA Negative (Negative); Leukocyte Esterase Urine Negative (Negative); Nitrite Urine Negative (Negative); PH 6.5 (5.0-9.0); Urine Blood Negative (Negative); Urine Ketones Negative (Negative); Urine Protein Negative (Neg-Trace)
[2024-07-25 14:33] LABS: Creatinine Urine 130.81 mg/dL; Protein/Creatinine Ratio, Ur 0.07 (<0.2); Total Protein Urine Random 9 mg/dL (<12)
[2024-07-25 14:35] LABS: Bacteria Urine None Seen (None Seen); Hyaline Casts Urine 0-2 /LPF (0-2); RBC Urine 0-2 /HPF (0-2); WBC Urine 0-5 /HPF (0-5)
[2024-07-25 15:06] LABS: Erythrocyte Sedimentation Rate 17 MM/HR (0-20)
[2024-07-26 13:09] LABS: Complement C3 168 mg/dL (83-193)
[2024-07-26 20:33] LABS: Anti DNA DS Antibody 1 IU/mL; SM/Ribonucleoprotein Ab <1.0 NEG AI (<1.0 NEG); Smith Protein <1.0 NEG AI (<1.0 NEG)
[2024-07-27 20:13] LABS: Cardiolipin IgG Ab <2.0 GPL-U/mL; Cardiolipin IgM Ab <2.0 MPL-U/mL
[2024-07-28 22:29] LABS: PTT (LAC) Screen 29 sec (<=40)
[2024-07-30 14:04] LABS: Anti Nuclear Antibody Screen NEGATIVE (NEGATIVE)
[2024-07-31 00:49] LABS: Beta-2 Glycoprotein IgA <2.0 U/mL (<20.0); Beta-2 Glycoprotein IgG <2.0 U/mL (<20.0); Beta-2 Glycoprotein IgM <2.0 U/mL (<20.0)
[2024-08-01 06:13] LABS: DNAds, Crithidia Antibody Negative (Negative)
== END 2024-07-25 12:16 | disposition home or self-care (01) ==
LOC: HO.LAB 12:15
PROVIDERS: PCP Student in an Organized Health Care Education/Training Program; Visit Provider Student in an Organized Health Care Education/Training Program
DX: L93.1 Subacute cutaneous lupus erythematosus (principal); Z51.81 Encounter for therapeutic drug level monitoring; Z79.52 Long term (current) use of systemic steroids; Z79.899 Other long term (current) drug therapy
CPT/HCPCS: 36415; 81001; 82570; 84156; 85597; 85598; 85613; 85652; 85730; 86038; 86140; 86146; 86147; 86160; 86225; 86235; 86255; 99202

== ENCOUNTER 2024-07-25 12:15 | Outpatient (AMB) | payer MEDICAID, SELFPAY ==
--- NOTE | 2024-07-25 12:28 | A.OFFVIS_ITS ---
Vital Signs 3 07/25/24 12:29 Height 5 ft 2 in Weight 186 lb 8.177 oz BMI 34.1 BP 138/72 Blood Pressure Location Lt brachial Position Sitting Pulse 88 Pulse Source Pulse Oximeter Pulse Oximetry (%) 99 Oxygen Delivery Method Room Air Intake Visit Reasons: SLE Intake Note: Patient presents today for diagnosis of? SLE, She was externally referred by her software design manager. Allergies No Known Allergies [No Known Allergies*] Allergy (Verified 07/25/24 12:32) Medication List - Last Reconciled 07/25/24 by Clare Aguillon MD cholecalciferol (vitamin D3) 125 mcg PO DAILY doxepin 10 mg PO BEDTIME hydroxyzine HCl 25 mg PO Q6H PRN ibuprofen 600 mg PO Q8H PRN rosuvastatin 5 mg PO DAILY semaglutide (weight loss) (Wegovy) 0.5 mg subcut QWEEK sertraline 25 mg PO QAM HPI Comments Details: Patient is a 39-year-old female who presents for evaluation of facial rash. Patient stated that the facial rash started in the summer of 2021. And she 1st sought medical attention in October of 2022. At that time she saw a software design manager who gave her a prednisone taper (40 mg then 30 mg then 20 mg then 10 mg and 5 mg then stop), performed a skin biopsy and gave her topical creams. Patient noted good relief from the steroids however after the steroids were completed the rash returned. She has tried Plaquenil for 3 months without improvement then she tried topical tacrolimus for 3 months without improvement then she tried topical steroids without improvement. She then sought a 2nd opinion and had another biopsy which confirmed subacute cutaneous lupus. She was given a trial of Opzulara which helped however this was denied by her insurance. She also now is complaining of mild joint stiffness lasting about 15 minutes in the morning however denies joint swelling. Denies frothy urine, oral/nasal ulcers. She does report that she feels that her hair is thinning but denies any rash or lesions to her scalp. Family history significant for sister with rheumatoid arthritis. No family member has lupus. She has 2 children. Had 1 miscarriage at 9 weeks. Both pregnancies were to term no preeclampsia. No history of VTE or PE. [facility] Medical History (Updated 07/25/24 @ 13:05 by Clare Aguillon MD) Subacute cutaneous lupus erythematosus Abnormal echocardiogram Discoid lupus Hypertension Anterior leg pain Insomnia Anxiety and depression Tobacco use Migraine Dermatitis No pertinent past medical history Surgical History Hx of section Family History Mother Hypertension Diabetes High cholesterol Father Diabetes High cholesterol Hypertension Brother High cholesterol Sister No problems noted. Daughter No problems noted. Son Chromosome 7q11.23 duplication syndrome Social History Alcohol intake: never Patient Tobacco Use Status: Former Tobacco user Tobacco use type: Smokeless Tobacco Review of Systems Const Details: Review of Systems Constitutional: Denies fever, chills, weight loss ENT: Denies vision changes, eye pain or eye redness, dental caries, dry mouth GI: Denies nausea, vomiting, diarrhea, abdominal pain, change in BM Pulm: Denies SOB, CHIRINOS, hemoptysis, wheezing Cards: Denies chest pain, palpitations Skin: Positive for rash. Denies Raynaud's, nail changes CAPTAIN FISHING VESSEL: Denies headaches, weakness, paresthesias, recurrent falls MSK: Complains of joint pain and joint stiffness. Denies joint swelling, muscle weakness, bone pain All other systems reviewed and are unremarkable except noted above Physical Exam Vital Signs: Last Vital Signs Pulse 88 07/25/24 12:29 BP 138/72 07/25/24 12:29 Pulse Ox 99 07/25/24 12:29 Oxygen Delivery Method Room Air 07/25/24 12:29 BMI result Body Mass Index 34.1 Const Other: Physical Examination Patient well appearing and in no apparent painful distress Able to rise from chair without support. ?Gait normal. Constitutional: ?Mucous membranes pink and moist patient alert and cooperative HEENT: ?Conjunctiva and sclera clear. ?Pupils equal round and reactive to light. ?No lymphadenopathy. ?Normal dentition. Resp: ?Normal respiratory effort and able to speak in complete sentences. ?Clear to auscultation bilaterally. ?No crackles, rales, rhonchi, wheezes heard. Cards: ?Regular rate and rhythm. ?S1 and S2 heard no murmurs. ?Radial pulses intact bilaterally MSK: ?No deformity, swelling, abnormalities noted to bilateral hands. ?No evidence of synovitis. ?Able to move all joints with full range of motion, without limitation. Skin: Diffuse erythematous and raised rash involving nasal folds cheeks forehead. Lesions noted in the ear. There is evidence of scarring. Also noted some scaling around the hairline. Results Reviewed Results Reviewed: Biopsy results reviewed in paper that patient brought. Also reviewed results from previous provider visits. Please see scanned documents Laboratory Tests 12/02/22 06/06/23 06/24/23 09:23 10:18 10:20 WBC 8.4 6.9 RBC 4.51 4.83 Hgb 12.5 13.1 Hct 37.8 39.6 Plt Count 153 L 193 D ESR 23 H G6PD Sodium 137 Potassium 3.8 Chloride 106 Carbon Dioxide 21 L BUN 20 H Creatinine 0.75 Calcium 9.5 Total Bilirubin 0.7 AST 19 ALT 29 Alkaline Phosphatase 68 Total Protein 8.2 H 07/29/23 11/04/23 09:44 08:52 WBC RBC Hgb Hct Plt Count ESR G6PD 15.8 Sodium 138 Potassium 3.9 Chloride 107 Carbon Dioxide 24 BUN 16 Creatinine 0.74 Calcium 9.3 Total Bilirubin 0.4 AST 11 ALT 14 Alkaline Phosphatase 67 Total Protein 8.3 H Assessment & Plan Assessment & Plan (1) Subacute cutaneous lupus erythematosus: Code(s): L93.1 - Subacute cutaneous lupus erythematosus Category: Medical Plan: #Subacute cutaneous lupus Patient with biopsy-proven subacute cutaneous lupus with a severe flare. Patient has failed multiple oral medications including Plaquenil, topical steroids, topical calcineurin inhibitors. We will give a short course of prednisone to treat the flare. We will start prior authorization for Saphnelo (Anifrolumab) Discuss risks and benefits of the medication with the patient. Patient is in agreement with plan (2) Current use of steroid medication: Code(s): Z79.52 - group home (current) use of systemic steroids Plan: #Use of Steroids Discussed with patient the risks and benefits of steroid for managing the rheumatic condition Benefits include: - Reduced pain, improved mobility, increased participation in activities, and decreased progression of disease Risks include: - GI upset, potential ultrasound worsening or formation (especially in patients > 65 years old), elevated blood pressure/worsening hypertension, elevated blood sugar/worsening diabetes control, worsening of bone density, elevated lipids/worsening triglycerides, cataract formation, weight gain Recommended using proton pump inhibitors (PPIs) for the duration of steroid use to reduce the risk of gastric ulcers and vitamin-D daily to reduce the risk of osteoporosis Pneumocystis jiroveci prophylaxis: ?Patient with risk factors including steroids greater than 50 mg for more than 30 days, age greater than 60 years, and lung involvement from underlying rheumatic disease requires prophylaxis and will be given so (3) Encounter for monitoring of belimumab therapy: Code(s): Z51.81 - Encounter for therapeutic drug level monitoring; Z79.899 - Other remote computer terminal operator (current) drug therapy Plan: #Long-term Use of Anifrolumab Discussed with patient the risks and benefits of and anifrolumab for managing there rheumatic condition. Benefits include: Remission of disease, improved pain, improved mobility, improved rash gnancy Risks include: Infusion reactions, increased risk of infection, potential for malignancy Plan I spent 45 minutes reviewing the record and labs, seeing the patient, discussing the treatment plan and documenting in the medical record Orders: Orders 2 Cardiolipin Antibodies Today L93.1 - Subacute cutaneous lupus erythematosus Anti Extractable Nuclear Ag Today L93.1 - Subacute cutaneous lupus erythematosus C Reactive Protein Today L93.1 - Subacute cutaneous lupus erythematosus DNA Double Stranded-Crithidia Today L93.1 - Subacute cutaneous lupus erythematosus Erythrocyte Sedimentation Rate Today L93.1 - Subacute cutaneous lupus erythematosus UA w Microscopic Today L93.1 - Subacute cutaneous lupus erythematosus Beta-2 Glycoprotein Antibody Today L93.1 - Subacute cutaneous lupus erythematosus Lupus Anticoagulant Panel Today L93.1 - Subacute cutaneous lupus erythematosus LEN Reflex Titer and Pattern Today L93.1 - Subacute cutaneous lupus erythematosus Anti DNA DS Antibody Today L93.1 - Subacute cutaneous lupus erythematosus Complement C3 Today L93.1 - Subacute cutaneous lupus erythematosus Complement C4 Today L93.1 - Subacute cutaneous lupus erythematosus Protein Creatinine Ratio, Ur Today L93.1 - Subacute cutaneous lupus erythematosus Referrals 2 Infusion Center Notification L93.1 - Subacute cutaneous lupus erythematosus, M32.9 - Systemic lupus erythematosus, unspecified Medications: New 2 prednisone Take 3 tablets for 14 days then take 2 tablets for 14 days then take 1 tablet for 14 days 5 mg PO DIRECTED 90 tabs 0RF L93.1 - Subacute cutaneous lupus erythematosus Coding Level of Care Code New Pt Level 5 (13198) Complex EM visit Add On G2211 Diagnoses Subacute cutaneous lupus erythematosus L93.1 Current use of steroid medication Z79.52 Encounter for monitoring of belimumab therapy Z51.81; Z79.899
[2024-07-25 12:29] VITALS: BP 138/72; PULSE 88; O2SAT 99; BMI 34.1
== END 2024-07-25 13:16 | disposition home or self-care (01) ==
PROVIDERS: PCP Student in an Organized Health Care Education/Training Program; Referring Provider Student in an Organized Health Care Education/Training Program; Visit Provider Student in an Organized Health Care Education/Training Program
DX: L93.1 Subacute cutaneous lupus erythematosus (principal); Z79.52 Long term (current) use of systemic steroids; Z51.81 Encounter for therapeutic drug level monitoring; Z79.899 Other long term (current) drug therapy
CPT/HCPCS: 99204

== ENCOUNTER 2024-08-07 08:40 | Outpatient (REF) | payer MEDICAID, SELFPAY ==
[2024-08-07 11:27] LABS: Hematocrit 35.5 % (37.0-47.0); Hemoglobin 11.8 g/dl (12.0-16.0); Mean Corpuscular HGB Conc 33.2 g/dl (31.0-35.0); Mean Corpuscular Hemoglobin 27.8 pg (27.0-33.0); Mean Corpuscular Volume 83.5 fL (80.0-98.0); Mean Platelet Volume 12.4 fL (9.4-12.3); Platelet Count 186 X10*3/uL (160-400); Red Blood Count 4.25 X10*6/uL (4.20-5.50); Red Cell Distribution Width 13.5 % (11.0-16.0); White Blood Count 9.2 X10*3/uL (4.8-10.8)
[2024-08-07 11:53] LABS: Alanine Aminotransferase 18 U/L (0-31); Albumin Level 4.1 g/dL (3.5-5.0); Alkaline Phosphatase 53 U/L (39-117); Anion Gap 13 (12-20); Aspartate Amino Transferase 12 U/L (5-31); Bilirubin Total 0.4 mg/dL (0.0-1.0); Blood Urea Nitrogen 14 mg/dL (9-16); Calcium 9.5 mg/dL (8.4-10.2); Carbon Dioxide 25 mmol/L (22-29); Chloride 107 mmol/L (96-108); Cholesterol 179 mg/dL (<200); Estimated Average Glucose 88 mg/dL; Estimated Glomerular Filt Rate > 60; Glucose Random 84 mg/dL (60-115); HDL Cholesterol 44 mg/dL (>40); Hemoglobin A1C 84.0061 umol/L; Hemoglobin A1c % 4.7 % (<6.0); LDL Cholesterol Calculated 96 mg/dL (<100); Potassium 3.8 mmol/L (3.3-5.1); Sodium 141 mmol/L (135-145); Total Protein 7.5 g/dL (6.5-8.0); Triglycerides 198 mg/dL (<150)
[2024-08-07 12:09] LABS: HBS Num1 67.14 mIU/mL (0-7.99); HBc Num1 0.23 S/CO (0.00-0.79); HBsAGNum1 0.34 S/CO (0.00-0.99); HIV AB/AG Nonreactive (Nonreactive); HIV Num 1 0.05 S/CO (0.00-0.99); Hepatitis B Core Antibody Nonreactive (Nonreactive); Hepatitis B Surface Antigen Negative (Negative); ~HepC Num1 0.13 S/CO (0.00-0.79); ~Hepatitis B Surface Antibody REACTIVE (Nonreactive); ~Hepatitis C Antibody Nonreactive (Nonreactive)
[2024-08-07 12:12] LABS: TSH reflex Free T4 0.46 uIU/mL (0.32-4.0); Vitamin D 25-OH Total 53.8 ng/mL (>30)
[2024-08-07 12:16] LABS: Creatinine Urine 179.38 mg/dL; Microalbum/Creatinine Ratio Ur 8.3 ug/mg cr (<30)
[2024-08-07 12:28] LABS: Syphilis Screen Nonreactive (Nonreactive)
== END 2024-08-07 08:41 | disposition home or self-care (01) ==
LOC: HO.HHCL 08:40
PROVIDERS: Visit Provider Student in an Organized Health Care Education/Training Program
DX: Z00.00 Encounter for general adult medical examination without abnormal findings (principal)
CPT/HCPCS: 36415; 80053; 80061; 82043; 82306; 82570; 83036; 84443; 85027; 86704; 86706; 86780; 86803; 87340; 87389

== ENCOUNTER 2024-08-29 12:42 | Outpatient (AMB) | payer MEDICAID, SELFPAY ==
--- NOTE | 2024-08-29 13:02 | A.OFFVIS_ITS ---
Vital Signs 3 08/29/24 13:03 Height 5 ft 2 in Weight 186 lb 11.704 oz BMI 34.1 BP 120/70 Blood Pressure Location Lt brachial Position Sitting Pulse 96 Pulse Source Pulse Oximeter Pulse Oximetry (%) 98 Oxygen Delivery Method Room Air Intake Visit Reasons: f/u labs and infusion. SCLE/CM Intake Note: Patient presents today for follow up on labs and infusion. She was last seen by Dr. Aguillon on 07/25/2024. Burlap Worker Required: Yes Allergies No Known Allergies [No Known Allergies*] Allergy (Verified 08/29/24 13:06) Medication List - Last Reconciled 08/29/24 by Clare Aguillon MD cholecalciferol (vitamin D3) 125 mcg PO DAILY doxepin 10 mg PO BEDTIME hydroxyzine HCl 25 mg PO Q6H PRN ibuprofen 600 mg PO Q8H PRN prednisone 5 mg PO DIRECTED rosuvastatin 10 mg PO DAILY semaglutide (weight loss) (Wegovy) 0.5 mg subcut QWEEK sertraline 25 mg PO QAM HPI Comments Details: Patient is a 39-year-old female with subacute cutaneous lupus here today for follow-up Interval History: Last seen 07/2024. At that time she was establishing care for subacute cutaneous lupus. Started on cefdinir low and prednisolone taper. Patient states that the high dose of steroids caused her to have a headache and so she reduced the dose and is only taking 1 tablet a day currently. The rash has improved. She got her 1st dose of Saphenelo 08/20/2024. Continues to deny joint pain. Rheumatologic History: Patient presented 07/25/2024 with facial rash that started in the summer of 2021. She 1st sought medical attention in October of 2022. At that time she saw a hotel service supervisor who gave her a prednisone taper (40 mg then 30 mg then 20 mg then 10 mg and 5 mg then stop), performed a skin biopsy and gave her topical creams. Patient noted good relief from the steroids however after the steroids were completed the rash returned. She has tried Plaquenil for 3 months without improvement then she tried topical tacrolimus for 3 months without improvement then she tried topical steroids without improvement. She then sought a 2nd opinion and had another biopsy which confirmed subacute cutaneous lupus. She was given a trial of Opzulara which helped however this was denied by her insurance. She also now is complaining of mild joint stiffness lasting about 15 minutes in the morning however denies joint swelling. Denies frothy urine, oral/nasal ulcers. She does report that she feels that her hair is thinning but denies any rash or lesions to her scalp. Family history significant for sister with rheumatoid arthritis. No family member has lupus. She has 2 children. Had 1 miscarriage at 9 weeks. Both pregnancies were to term no preeclampsia. No history of VTE or PE. Current Rheumatology Medication(s): Saphenlo 300mg IV every month [facility] Medical History (Updated 08/29/24 @ 13:38 by Clare Aguillon MD) Long-term use of Plaquenil Subacute cutaneous lupus erythematosus Abnormal echocardiogram Discoid lupus Hypertension Anterior leg pain Insomnia Anxiety and depression Tobacco use Migraine Dermatitis No pertinent past medical history Surgical History Hx of section Family History Mother Hypertension Diabetes High cholesterol Father Diabetes High cholesterol Hypertension Brother High cholesterol Sister No problems noted. Daughter No problems noted. Son Chromosome 7q11.23 duplication syndrome Social History Alcohol intake: never Patient Tobacco Use Status: Former Tobacco user Tobacco use type: Smokeless Tobacco Physical Exam Vital Signs: Last Vital Signs Pulse 96 08/29/24 13:03 BP 120/70 08/29/24 13:03 Pulse Ox 98 08/29/24 13:03 Oxygen Delivery Method Room Air 08/29/24 13:03 BMI result Body Mass Index 34.1 Const Other: Physical Examination Patient well appearing and in no apparent painful distress Able to rise from chair without support. ?Gait normal. Constitutional: ?Mucous membranes pink and moist patient alert and cooperative HEENT: ?Conjunctiva and sclera clear. ?Pupils equal round and reactive to light. ?No lymphadenopathy. ?Normal dentition. Resp: ?Normal respiratory effort and able to speak in complete sentences. ?Clear to auscultation bilaterally. ?No crackles, rales, rhonchi, wheezes heard. Cards: ?Regular rate and rhythm. ?S1 and S2 heard no murmurs. ?Radial pulses intact bilaterally MSK: ?No deformity, swelling, abnormalities noted to bilateral hands. ?No evidence of synovitis. ?Able to move all joints with full range of motion, without limitation. Skin: Diffuse erythematous and raised rash involving nasal folds cheeks forehead. Lesions noted in the ear. There is evidence of scarring. Also noted some scaling around the hairline. Improved since last visit 07/2024 PICTURES: 08/29/2024 PICTURES (1st dose of Saphnelo 08/20/24) Results Reviewed Results Reviewed: Laboratory Tests 07/25/24 08/07/24 13:44 08:40 WBC 9.2 RBC 4.25 Hgb 11.8 L Hct 35.5 L Plt Count 186 Sodium 141 Potassium 3.8 Chloride 107 Carbon Dioxide 25 BUN 14 Creatinine 0.83 AST 12 ALT 18 Alkaline Phosphatase 53 LEN Screen NEGATIVE Anti-ds DNA (Crithidia) Negative Beta-2-GPI IgG Ab <2.0 Beta-2-GPI IgA Ab <2.0 Beta-2-GPI IgM Ab <2.0 Anti-Cardiolipin IgG Ab <2.0 Anti-Cardiolipin IgM Ab <2.0 Complement C3 168 Complement C4 42 Assessment & Plan Assessment & Plan (1) Subacute cutaneous lupus erythematosus: Comment: Saphnelo 07/2024 Plaquenil 08/2024 Code(s): L93.1 - Subacute cutaneous lupus erythematosus Category: Medical Plan: #Subacute cutaneous lupus Patient with biopsy-proven subacute cutaneous lupus flare improving. Patient has failed multiple oral medications including Plaquenil, topical steroids, topical calcineurin inhibitors. Stop prednisone after completing course Continue Saphnelo (Anifrolumab) Start plaquenil Review in 3 months (2) Current use of steroid medication: Code(s): Z79.52 - manager long term care (current) use of systemic steroids Plan: #Use of Steroids Discussed with patient the risks and benefits of steroid for managing the rheumatic condition Benefits include: - Reduced pain, improved mobility, increased participation in activities, and decreased progression of disease Risks include: - GI upset, potential ultrasound worsening or formation (especially in patients > 65 years old), elevated blood pressure/worsening hypertension, elevated blood sugar/worsening diabetes control, worsening of bone density, elevated lipids/worsening triglycerides, cataract formation, weight gain Recommended using proton pump inhibitors (PPIs) for the duration of steroid use to reduce the risk of gastric ulcers and vitamin-D daily to reduce the risk of osteoporosis Pneumocystis jiroveci prophylaxis: ?Patient with risk factors including steroids greater than 50 mg for more than 30 days, age greater than 60 years, and lung involvement from underlying rheumatic disease requires prophylaxis and will be given so (3) Encounter for monitoring of belimumab therapy: Code(s): Z51.81 - Encounter for therapeutic drug level monitoring; Z79.899 - Other termite helper (current) drug therapy Plan: #Long-term Use of Anifrolumab Discussed with patient the risks and benefits of and anifrolumab for managing there rheumatic condition. Benefits include: Remission of disease, improved pain, improved mobility, improved rash gnancy Risks include: Infusion reactions, increased risk of infection, potential for malignancy (4) Long-term use of Plaquenil: Code(s): Z79.899 - Other termite helper (current) drug therapy Category: Medical Plan: #Long-term Use of Hydroxychloroquine Discussed with patient the risks and benefits of hydroxychloroquine in managing the rheumatic condition Benefits include: - Reduced pain, reduce mortality, maintenance of remission and reduction of flares Risks include: - GI upset, skin hyperpigmentation, retinal toxicity (especially after more than 5 years of use), myopathy Advised yearly ophthalmology visits Plan I spent 25 minutes reviewing the record and labs, seeing the patient, discussing the treatment plan and documenting in the medical record Medications: New 2 hydroxychloroquine (Plaquenil) 200 mg PO BID 90 days 180 tabs 2RF L93.1 - Subacute cutaneous lupus erythematosus Discontinued 2 prednisone Take 3 tablets for 14 days then take 2 tablets for 14 days then take 1 tablet for 14 days Discontinued Reason: Patient Completed Course 5 mg PO DIRECTED 90 tabs 0RF L93.1 - Subacute cutaneous lupus erythematosus Coding Level of Care Code Est Pt Level 4 (96511) Complex EM visit Add On G2211 Diagnoses Subacute cutaneous lupus erythematosus L93.1 Current use of steroid medication Z79.52 Encounter for monitoring of belimumab therapy Z51.81; Z79.899 Long-term use of Plaquenil Z79.899
[2024-08-29 13:03] VITALS: BP 120/70; PULSE 96; O2SAT 98; BMI 34.1
== END 2024-08-29 13:24 | disposition home or self-care (01) ==
LOC: HO.RHE 12:43
PROVIDERS: PCP Student in an Organized Health Care Education/Training Program; Visit Provider Student in an Organized Health Care Education/Training Program
DX: L93.1 Subacute cutaneous lupus erythematosus (principal); Z79.52 Long term (current) use of systemic steroids; Z51.81 Encounter for therapeutic drug level monitoring; Z79.899 Other long term (current) drug therapy
CPT/HCPCS: 99214

== ENCOUNTER → 2024-08-29 12:42 | Outpatient (BNVA) | payer MEDICAID, SELFPAY | PROVIDERS: PCP Student in an Organized Health Care Education/Training Program; Visit Provider Student in an Organized Health Care Education/Training Program | DX: L93.1 Subacute cutaneous lupus erythematosus (principal); Z51.81 Encounter for therapeutic drug level monitoring; Z79.52 Long term (current) use of systemic steroids; Z79.899 Other long term (current) drug therapy | CPT/HCPCS: 99212 ==

== ENCOUNTER 2024-11-06 13:50 | Outpatient (AMB) | payer MEDICAID, SELFPAY ==
--- NOTE | 2024-11-06 13:54 | MHC.OFFVIS ---
Vital Signs 11/06/24 13:57 Height 5 ft 2 in Weight 184 lb 11.958 oz BMI 33.8 BP 115/72 Blood Pressure Location Lt brachial Position Sitting Respiration 18 Pulse 84 Pulse Source Pulse Oximeter Pulse Oximetry (%) 98 Oxygen Delivery Method Room Air Intake Visit Reasons: joint pain Intake Note: Patient presents for joint pain. 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 At that time rash improved and she had just started saphnelo Today she is complaining of joint pain involving her hands and her knees. She is also complaining of extreme fatigue, noticing particularly that is started end of September. Knees - has been going on for years - history of fall with injury of left knee in the past - Was walking down the stairs, leg fell asleep and she almost fell Hands - No swelling - Worse in the the middle of the day - No prolonged AM stiffness - Does get a sensation of falling asleep With respect to the rash, she had a flare in September and was started on Betamethasone cream by dermatology with improvement. Rheumatologic History: Patient presented 07/25/2024 with facial rash that started in the summer of 2021. She 1st sought medical attention in October of 2022. At that time she saw a technology specialist who gave her a prednisone taper (40 mg then 30 mg then 20 mg then 10 mg and 5 mg then stop), performed a skin biopsy and gave her topical creams. Patient noted good relief from the steroids however after the steroids were completed the rash returned. She has tried Plaquenil for 3 months without improvement then she tried topical tacrolimus for 3 months without improvement then she tried topical steroids without improvement. She then sought a 2nd opinion and had another biopsy which confirmed subacute cutaneous lupus. She was given a trial of Opzulara which helped however this was denied by her insurance. She also now is complaining of mild joint stiffness lasting about 15 minutes in the morning however denies joint swelling. Denies frothy urine, oral/nasal ulcers. She does report that she feels that her hair is thinning but denies any rash or lesions to her scalp. Family history significant for sister with rheumatoid arthritis. No family member has lupus. She has 2 children. Had 1 miscarriage at 9 weeks. Both pregnancies were to term no preeclampsia. No history of VTE or PE. Current Rheumatology Medication(s): Saphenlo 300mg IV every month [facility] Medical History (Updated 11/06/24 @ 14:28 by Clare Aguillon MD) Knee pain, bilateral Bilateral carpal tunnel syndrome Long-term use of Plaquenil Subacute cutaneous lupus erythematosus Abnormal echocardiogram Discoid lupus Hypertension Anterior leg pain Insomnia Anxiety and depression Tobacco use Migraine Dermatitis No pertinent past medical history Surgical History Hx of section Family History Mother Hypertension Diabetes High cholesterol Father Diabetes High cholesterol Hypertension Brother High cholesterol Sister No problems noted. Daughter No problems noted. Son Chromosome 7q11.23 duplication syndrome Social History Alcohol intake: never Patient Tobacco Use Status: Former Tobacco user Tobacco use type: Smokeless Tobacco Review of Systems Const Details: Review of Systems Constitutional: Denies fever, chills, weight loss ENT: Denies vision changes, eye pain or eye redness, dental caries, dry mouth GI: Denies nausea, vomiting, diarrhea, abdominal pain, change in BM Pulm: Denies SOB, CHIRINOS, hemoptysis, wheezing Cards: Denies chest pain, palpitations Skin: Denies Raynaud's, rash, nail changes, photosensitivity, MARKETING SYSTEMS ANALYST: Denies headaches, weakness, paresthesias, recurrent falls MSK: as per HPI All other systems reviewed and are unremarkable except noted above Physical Exam Vital Signs: Last Vital Signs Pulse 84 11/06/24 13:57 Resp 18 11/06/24 13:57 BP 115/72 11/06/24 13:57 Pulse Ox 98 11/06/24 13:57 Oxygen Delivery Method Room Air 11/06/24 13:57 BMI result Body Mass Index 33.8 Vital signs reviewed Physical Examination CONSTITUITIONAL Patient alert and cooperative. Well appearing and in no apparent painful distress HEENT Conjunctiva and sclera clear. ?Pupils equal round and reactive to light. ?No lymphadenopathy. ? CHEST/RESPIRATORY SYSTEM Normal respiratory effort and able to speak in complete sentences. ?Clear to auscultation bilaterally. ?No crackles, rales, rhonchi, wheezes heard. CARDIAC SYSTEM Regular rate and rhythm. ?S1 and S2 heard no murmurs. 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 No deformities noted. ?No synovitis noted to the MCPs, PIPs or DIPs. ?No tenderness to palpation of these joints. Wrists: ?Full range of motion at the wrists without pain. ?No tenderness to palpation or synovitis noted to the wrists. Positive Phalen's test Elbows: Full range of motion without pain. No tenderness, weakness, swelling, increased warmth or erythema. Shoulders: Full range of motion without pain. No tenderness, weakness, swelling, increased warmth or erythema. Hips: Full range of motion without pain. Hip bursa: No tenderness to palpation Knees: ?Full range of motion. ?No tenderness, swelling, increased warmth or erythema.?Bilateral crepitations felt Ankles: Full range of motion. ?No tenderness, swelling, increased warmth or erythema.? Feet: ?Negative squeeze test. ?No tenderness to palpation or swelling of the MTPs. Tender points:?No tenderness to palpation of the bilateral trapezius, supraspinatus, greater trochanters, anterior costochondral junctions, bilateral gluteal areas, bilateral suboccipital muscle insertions SKIN Skin intact without rashes. Face has improved drastically Results Reviewed Results Reviewed: Laboratory Tests 07/25/24 08/07/24 13:44 08:40 WBC 9.2 RBC 4.25 Hgb 11.8 L Hct 35.5 L Plt Count 186 Sodium 141 Potassium 3.8 Chloride 107 Carbon Dioxide 25 BUN 14 Creatinine 0.83 AST 12 ALT 18 Alkaline Phosphatase 53 LEN Screen NEGATIVE Anti-ds DNA (Crithidia) Negative Beta-2-GPI IgG Ab <2.0 Beta-2-GPI IgA Ab <2.0 Beta-2-GPI IgM Ab <2.0 Anti-Cardiolipin IgG Ab <2.0 Anti-Cardiolipin IgM Ab <2.0 Complement C3 168 Complement C4 42 Assessment & Plan Assessment & Plan (1) Bilateral carpal tunnel syndrome: Code(s): G56.03 - Carpal tunnel syndrome, bilateral upper limbs Category: Medical Plan: #Hand Pain with numbness Exam and history suggests carpal tunnel Recommend getting EMG to confirm Plan - EMG - Celebrex for pain (2) Subacute cutaneous lupus erythematosus: Comment: Saphnelo 07/2024 Plaquenil 08/2024 Code(s): L93.1 - Subacute cutaneous lupus erythematosus Category: Medical Plan: #Subacute cutaneous lupus Skin doing well Continue meds Plan - Saphnelo 300mg IV monthly - Plaquenil 200mg bid - Topical betamethasone from derm - RTC Nov 2024 (3) Knee pain, bilateral: Code(s): M25.561 - Pain in right knee; M25.562 - Pain in left knee Category: Medical Qualifiers: Chronicity: chronic Qualified Code(s): M25.561 - Pain in right knee; M25.562 - Pain in left knee; G89.29 - Other chronic pain Plan: #Knee Pain History and exam consistent with findings of early OA Will check XRs Celebrex 200mg bid for pain control Plan - XR Bilateral knees (4) Encounter for monitoring of belimumab therapy: Code(s): Z51.81 - Encounter for therapeutic drug level monitoring; Z79.620 - detention (current) use of immunosuppressive biologic Plan: #Long-term Use of Anifrolumab Discussed with patient the risks and benefits of and anifrolumab for managing there rheumatic condition. Benefits include: Remission of disease, improved pain, improved mobility, improved rash gnancy Risks include: Infusion reactions, increased risk of infection, potential for malignancy (5) Long-term use of Plaquenil: Code(s): Z79.899 - Other termite control technician (current) drug therapy Category: Medical Plan: #Long-term Use of Hydroxychloroquine Discussed with patient the risks and benefits of hydroxychloroquine in managing the rheumatic condition Benefits include: - Reduced pain, reduce mortality, maintenance of remission and reduction of flares Risks include: - GI upset, skin hyperpigmentation, retinal toxicity (especially after more than 5 years of use), myopathy Advised yearly ophthalmology visits Plan I spent 25 minutes reviewing the record and labs, seeing the patient, discussing the treatment plan and documenting in the medical record Orders: Orders XR knee RT 3V Today M25.561 - Pain in right knee, M25.562 - Pain in left knee XR knee LT 3V Today M25.561 - Pain in right knee, M25.562 - Pain in left knee XR knee standing BI Today M25.561 - Pain in right knee, M25.562 - Pain in left knee NE electromyogram (EMG) Today G56.03 - Carpal tunnel syndrome, bilateral upper limbs Medications: New celecoxib (Celebrex) 200 mg PO BID 90 days 180 caps 1RF M17.9 - Osteoarthritis of knee, unspecified Discontinued ibuprofen Discontinued Reason: Doctor's Order 600 mg PO Q8H PRN 20 tabs 0RF pain Coding Level of Care Code Est Pt Level 3 (16230) Complex EM visit Add On G2211 Diagnoses Bilateral carpal tunnel syndrome G56.03 Subacute cutaneous lupus erythematosus L93.1 Chronic pain of both knees M25.561; M25.562; G89.29 Chronicity: chronic Encounter for monitoring of belimumab therapy Z51.81; Z79.620 Long-term use of Plaquenil Z79.892
[2024-11-06 13:57] VITALS: BP 115/72; PULSE 84; RESP 18; O2SAT 98; BMI 33.8
== END 2024-11-06 14:21 | disposition home or self-care (01) ==
LOC: HO.RHE 13:50
PROVIDERS: PCP Student in an Organized Health Care Education/Training Program; Visit Provider Student in an Organized Health Care Education/Training Program
DX: G56.03 Carpal tunnel syndrome, bilateral upper limbs (principal); L93.1 Subacute cutaneous lupus erythematosus; M25.561 Pain in right knee; M25.562 Pain in left knee; G89.29 Other chronic pain; Z51.81 Encounter for therapeutic drug level monitoring; Z79.620 Long term (current) use of immunosuppressive biologic; Z79.899 Other long term (current) drug therapy
CPT/HCPCS: 99213

== ENCOUNTER → 2024-11-06 13:50 | Outpatient (BNVA) | payer MEDICAID, SELFPAY | PROVIDERS: PCP Student in an Organized Health Care Education/Training Program; Visit Provider Student in an Organized Health Care Education/Training Program | DX: G56.03 Carpal tunnel syndrome, bilateral upper limbs (principal); M25.561 Pain in right knee; M25.562 Pain in left knee; L93.1 Subacute cutaneous lupus erythematosus; G89.29 Other chronic pain; Z51.81 Encounter for therapeutic drug level monitoring; Z79.620 Long term (current) use of immunosuppressive biologic; Z79.899 Other long term (current) drug therapy | CPT/HCPCS: 99212 ==

== ENCOUNTER 2024-11-12 10:42 | Outpatient (REF) | payer MEDICAID, SELFPAY ==
--- NOTE | ~2024-11-12 | XR_ITS ---
EXAMINATION: XR KNEE, RIGHT CLINICAL INFORMATION: M25.561 - Pain in right knee COMPARISON: None available. TECHNIQUE: Three views of the right knee. FINDINGS: The tricompartmental joint spaces preserved. There is no visible acute fracture, dislocation subluxation seen. There is minimal right lateral patellar spur present. No joint effusion seen. There are no loose bodies. The soft tissues are normal. XR/XR knee RT 4V IMPRESSION: Small right lateral patellar spur. No visible acute fracture, dislocation or lytic process seen. Electronically signed by: Morales Ballesteros MD 11/12/2024 01:04 PM EST
--- NOTE | ~2024-11-12 | XR_ITS ---
EXAMINATION: XR KNEE, LEFT CLINICAL INFORMATION: M25.561 - Pain in right knee COMPARISON: None available. TECHNIQUE: 3 views of the left knee. FINDINGS: The tricompartmental joint spaces are maintained normal. No visible acute fracture, dislocation, bony changes or loose bodies seen. No abnormal joint effusion. XR/XR knee LT 4V IMPRESSION: Unremarkable left knee exam Electronically signed by: Morales Ballesteros MD 11/12/2024 01:03 PM EST
== END 2024-11-12 10:43 | disposition home or self-care (01) ==
LOC: HO.XRAY 10:42
PROVIDERS: PCP Student in an Organized Health Care Education/Training Program; Visit Provider Student in an Organized Health Care Education/Training Program
DX: M25.561 Pain in right knee (principal); M25.562 Pain in left knee
CPT/HCPCS: 73564

== ENCOUNTER → 2024-11-12 10:46 | Outpatient (BNV) | payer MEDICAID, SELFPAY | PROVIDERS: PCP Student in an Organized Health Care Education/Training Program; Visit Provider Radiology Diagnostic Radiology | DX: M25.562 Pain in left knee (principal); M25.761 Osteophyte, right knee | CPT/HCPCS: 73564 ==

== ENCOUNTER → 2024-11-29 14:37 | Outpatient (REF) | payer MEDICAID, SELFPAY ==
--- NOTE | 2024-11-29 14:41 | EMG_ITS ---
Chief complaint: Bilateral hand numbness, history of lupus Reason for referral: Evaluate for Carpal Tunnel Syndrome Referred by: Dr. Aguillon Procedure done: Bilateral upper extremities NCS/EMG Precautions and/or limitations: None The limb temperature was monitored continuously and remained between 32-36 degrees C during the performance of the NCS. Nerve Conduction Studies Anti Sensory Summary Table ?Stim Site NR Onset (ms) Norm Onset (ms) Peak (ms) Norm Peak (ms) O-P Amp (?V) Norm O-P Amp Site1 Site2 Delta-0 (ms) Dist (cm) Geoff (m/s) Norm Geoff (m/s) Left Median Anti Sensory (2nd Digit) Wrist ? 2.0 2.8 <3.6 86.8 >10 Wrist 2nd Digit 2.0 14.0 70 Right Median Anti Sensory (2nd Digit) Wrist ? 2.1 2.9 <3.6 70.8 >10 Wrist 2nd Digit 2.1 14.0 67 Right Radial Anti Sensory (Thumb) Forearm ? 1.7 2.1 <3.1 34.3 Forearm Thumb 1.7 0.0 Left Ulnar Anti Sensory (5th Digit) Wrist ? 2.3 2.9 <3.7 61.6 >15.0 Wrist 5th Digit 2.3 14.0 61 Right Ulnar Anti Sensory (5th Digit) Wrist ? 2.2 2.8 <3.7 74.9 >15.0 Wrist 5th Digit 2.2 14.0 64 Motor Summary Table ?Stim Site NR Onset (ms) Norm Onset (ms) O-P Amp (mV) Norm O-P Amp iAmp (mV) Amp (1st) (%) Site1 Site2 Delta-0 (ms) Dist (cm) Geoff (m/s) Norm Geoff (m/s) Left Median Motor (Abd Poll Brev) Wrist ? 3.0 <3.9 10.5 >4.5 12.0 100.0 Elbow Wrist 3.6 21.0 58 >45 Elbow ? 6.6 11.1 12.9 105.7 Right Median Motor (Abd Poll Brev) Wrist ? 3.1 <3.9 10.3 >4.5 11.9 100.0 Elbow Wrist 3.5 21.0 60 >45 Elbow ? 6.6 10.1 11.8 98.1 Left Ulnar Motor (Abd Dig Minimi) Wrist ? 2.8 <3.0 7.8 >5 9.3 100.0 B Elbow Wrist 3.0 18.0 60 >45 B Elbow ? 5.8 7.7 9.2 98.7 A Elbow B Elbow 1.3 10.0 77 >45 A Elbow ? 7.1 7.7 9.1 98.7 Right Ulnar Motor (Abd Dig Minimi) Wrist ? 2.7 <3.0 7.5 >5 8.5 100.0 B Elbow Wrist 2.9 18.0 62 >45 B Elbow ? 5.6 8.2 9.4 109.3 A Elbow B Elbow 1.1 10.0 91 >45 A Elbow ? 6.7 8.3 9.4 110.7 EMG ?Side Muscle Nerve Root Ins Act Fibs Psw Amp Dur Poly Recrt Int Pat Comment Right 1stDorInt Ulnar C8-T1 Nml Nml Nml Nml Nml 0 Nml Complete Right FlexCarRad Median C6-7 Nml Nml Nml Nml Nml 0 Nml Complete Right Biceps Musculocut C5-6 Nml Nml Nml Nml Nml 0 Nml Complete Right Triceps Radial C6-7-8 Nml Nml Nml Nml Nml 0 Nml Complete Right Deltoid Axillary C5-6 Nml Nml Nml Nml Nml 0 Nml Complete Left 1stDorInt Ulnar C8-T1 Nml Nml Nml Nml Nml 0 Nml Complete Left FlexCarRad Median C6-7 Nml Nml Nml Nml Nml 0 Nml Complete Left Biceps Musculocut C5-6 Nml Nml Nml Nml Nml 0 Nml Complete Left Triceps Radial C6-7-8 Nml Nml Nml Nml Nml 0 Nml Complete Left Deltoid Axillary C5-6 Nml Nml Nml Nml Nml 0 Nml Complete FINDINGS: All motor and sensory nerves tested showed normal latencies, amplitudes and conduction velocities. Concentric needle EMG was performed in selected muscles of the bilateral upper extremities. Study did not reveal signs of electric abnormalities as shown in the table above. IMPRESSION: 1. This is a normal study. 2. There is no electrodiagnostic evidence for median neuropathy, ulnar neuropathy, brachial plexopathy, or cervical radiculopathy. Thank you for your kind referral. Latrice Hampton MD, DARLIN Board Certified, [place] [employer] and [employer] (ABPMR) Board Certified, [place] Board [employer] Electrodiagnostic Medicine (ABEM) CODIN [phone] MTDD
--- OUTSIDE RECORDS SUMMARY | 2024-11-29 14:41 | XMS_ITS | Encounter Summary ---
Author Organization [employer] Address [address] [place] [address] [address] [place] [address] Care Team Providers Care Cattle Dealer Name Role Phone Darcie Escalante MD Primary Care Pro vider Reason for Visit * Reason Onset Date Comments Med Refill 10/04/2023 Encounter Details Date Type Department Care Team ([facility] st Contact Info) Description 10/04/2023 Refill [facility] [address] [place], [place] [phone] Darcie Escalante MD [address] [place] [address] Social History Tobacco Use Types Packs/Day Years Used Date Smoking Tobacco: Former Cigarettes Passive Smoke Exposure: Past Smokeless Tobacco: Never Comments:Started smoking 18 y until 31 years and again since 37 y of age --now stopped 3 weeks ago --used to smoke 3 cigarettes a day and most recently was vaping instead that last 4 days. ---PQT calc 2.1 Alcohol Use Standard Drinks/Week Comments Not Currently 0 (1 standard drink = 0.6 oz pur e alcohol) social Depression Answer Date Recorded Patient Health Questionnaire-9 Score 8 04/06/2023 Housing Stability Answer Date Recorded What is your housing situation today? I have allyson vicki 08/19/[address] you li ve. Do you have problems with any of the following? None of the above 08/19/2023 Food Insecurity Answer Date Recorded Within the past 12 months, y ou worried that your food would run out before you got money to buy more: Never True 08/19/2023 Within the past 12 months,th e food you bought just didn't last and you didn't have enough money to get more: Never True Transportation Answer Date Recorded In the past 12 months, has l ack of transportation kept you from medical appts, meetings, work or from getting things needed for daily living? No 08/19/2023 Utilities Answer Date Recorded In the past 12 months, has t he electric, gas, oil or water company threatened to shut off services in your home? No 08/19/2023 Depression Answer Date Recorded Patient Health Questionnaire-2 Score 2 04/06/2023 Comments Unknown Sex and Gender Information Value Date Recorded Sex Assigned at Female 08/23/2022 10:36 AM EDT Legal Sex Female 10:36 AM EDT Gender Identity Female 08/23/2022 10:36 AM EDT Sexual Orientation Straight 08/23/2022 10 :36 AM EDT documented as of this encounter Plan of Treatment Upcoming Encounters Date Type Department Care Team (Late st Contact Info) Description 01/23/2025 10:00 AM EDT Office Visit [facility] [address] [place] [address] Darcie Escalante MD [address] [place] [phone] documented as of this encounter Visit Diagnoses Not on filedocumented in this encounter Additional Health Concerns Assessment Noted Time PHQ-9 Depression Total Score: 8 04/06/20 23 10:44 AM EDT documented as of this encounter Care Teams Cattle Dealer Relationship Specialty Start Date End Date Darcie Escalante MD [address] [place] [phone] PCP - General Internal Medicine 03/17/23 documented as of this encounter
--- OUTSIDE RECORDS SUMMARY | 2024-11-29 14:41 | XMS_ITS | Encounter Summary ---
Author Organization [employer] Address [address] [place] [address] [address] [place] [address] Care Team Providers Care Line Pilot Name Role Phone Darcie Escalante MD Primary Care Pro vider Encounter Details Date Type Department Care Team ([facility] st Contact Info) Description 11/23/2024 Telephone [employer] [address] [place], [place] [phone] Mitra Chadwick MD [address] [place], [place] [phone] Social History Tobacco Use Types Packs/Day Years Used Date Smoking Tobacco: Former Cigarettes Passive Smoke Exposure: Past Smokeless Tobacco: Never Comments:Started smoking 18 y until 31 years and again since 37 y of age - smoke 3 cigarettes a day and most recently was vaping instead that last 4 days. ---PQT calc 2.1 Alcohol Use Standard Drinks/Week Comments Never 0 (1 standard drink = 0.6 oz pur e alcohol) Depression Answer Date Recorded Patient Health Questionnaire-9 Score 9 06/19/2024 Patient Health Questionnaire-9 Score 9 06/19/2024 Last PHQ-9: Questionnaire Data Not on file 0 06/19/2024 Housing Stability Answer Date Recorded What is your housing situation today? I have allyson cohen 06/01/[address] you li ve. Do you have problems with any of the following? None of the above 06/01/2024 Food Insecurity Answer Date Recorded Within the past 12 months, y ou worried that your food would run out before you got money to buy more: Never True 06/01/2024 Within the past 12 months,th e food you bought just didn't last and you didn't have enough money to get more: Never True 06/2024 Transportation Answer Date Recorded In the past 12 months, has l ack of transportation kept you from medical appts, meetings, work or from getting things needed for daily living? No 06/01/2024 Utilities Answer Date Recorded In the past 12 months, has t he electric, gas, oil or water company threatened to shut off services in your home? No 06/01/2024 Depression Answer Date Recorded Patient Health Questionnaire-2 Score 2 06/19/2024 Internet Access Answer Date Recorded Internet Access Q1 Yes 06/25/2024 Internet Access Q2 Not on file 06/25/2024 Comments Unknown Sex and Gender Information Value Date Recorded Sex Assigned at Female 08/23/2022 10:36 AM EDT Legal Sex Female 10:36 AM EDT Gender Identity Female 08/23/2022 10:36 AM EDT Sexual Orientation Straight 08/23/2022 10 :36 AM EDT documented as of this encounter Miscellaneous Notes * Telephone Encounter - Jeanie Esteban RN - 11/23/2024 9:34 AM EST Spoke to Fiordaliza (Dx PA Specialist) to inform MRI order was placed about 1 year prior for an acute issue. Patient would need reevaluation if MRI order needs to be corrected. Fiordaliza Chavez from [facility] was following up on no shows and noticed that this Patient also needed the order corrected- hence the call and request for the ordering Provider to re order the imaging. Fiordaliza informed an RN contacted Patient (see telephone encounter 11/15/24) to check if she is still symptomaticbut Patient reported that she is not. No MRI needed at this time. Fiordaliza will contact Kathy to inform. * Telephone Encounter - Fiordaliza Pedraza - 11/23/2024 8:04 AM EST Incoming call call from Kathy at [facility] requesting MRI Lower extremity order to be update to MRI Lower Extremity WWO Contrast Left, appt is Tuesday11/25/24. Please advise . documented in this encounter Plan of Treatment Upcoming Encounters Date Type Department Care Team (Late st Contact Info) Description 01/23/2025 10:00 AM EDT Office Visit [facility] [address] [place] [phone] Darcie Escalante MD [address] [place] [phone] documented as of this encounter Visit Diagnoses Not on filedocumented in this encounter Additional Health Concerns Assessment Noted Time PHQ-9 Depression Total Score: 9 06/19/20 24 10:11 AM EDT documented as of this encounter Care Teams Line Pilot Relationship Specialty Start Date End Date Darcie Escalante MD [address] [place] [phone] PCP - General Internal Medicine 03/17/23 documented as of this encounter
--- OUTSIDE RECORDS SUMMARY | 2024-11-29 14:41 | XMS_ITS | Encounter Summary ---
Author Organization [employer] [facility] Address [address] [place] [address] [address] [address] Care Team Providers Care Bowstring Maker Name Role Phone Darcie Escalante MD Primary Care Pro vider Encounter Details Date Type Department Care Team (Latest Contact Info) Description 01/15/2021 Abstract [facility] CONVERSIONS Dental, Provider, DDS Social History Tobacco Use Types Packs/Day Years Used Date Smoking Tobacco: Never Assessed Comments Unknown Sex and Gender Information Value Date Recorded Sex Assigned at Female 08/23/2022 10:36 AM EDT Legal Sex Female 10:36 AM EDT Gender Identity Female 08/23/2022 10:36 AM EDT Sexual Orientation Straight 08/23/2022 10 :36 AM EDT documented as of this encounter Plan of Treatment Upcoming Encounters Date Type Department Care Team ( st Contact Info) Description 01/23/2025 10:00 AM EDT Office Visit [facility] [address] [place] [address] Darcie Escalante MD [address] [place] [address] documented as of this encounter Visit Diagnoses Not on filedocumented in this encounter Care Teams Bowstring Maker Relationship Specialty Start Date End Date Darcie Escalante MD [address] [place] [address] PCP - General Internal Medicine 03/17/23 documented as of this encounter
--- OUTSIDE RECORDS SUMMARY | 2024-11-29 14:41 | XMS_ITS | Encounter Summary ---
Author Organization [employer] Address [address] [place] [address] Care Team Providers Care Entry Processor Name Role Phone Darcie Escalante MD Primary Care Pro vider Encounter Details Date Type Department Care Team (Latest Contact Info) Description 11/02/2024 Travel Social History Tobacco Use Types Packs/Day Years [...] Description 01/23/2025 10:00 AM EDT Office Visit [facility] [address] [place] [phone] Darcie Escalante MD [address] [place] [phone] documented as of this encounter Visit Diagnoses Not on filedocumented in this encounter Additional Health Concerns Assessment Noted Time PHQ-9 Depression Total Score: 9 06/19/20 24 10:11 AM EDT documented as of this encounter Care Teams Entry Processor Relationship Specialty Start Date End Date Darcie Escalante MD [address] [place] [phone] PCP - General Internal Medicine 03/17/23 documented as of this encounter
--- OUTSIDE RECORDS SUMMARY | 2024-11-29 14:41 | XMS_ITS | Encounter Summary ---
Author Organization [employer] Address [address] [place] [address] [address] [place] [address] Care Team Providers Care Software Firmware Engineer Name Role Phone Darcie Escalante MD Primary Care Pro vider Reason for Visit * Reason Onset Date Comments Med Refill 02/07/2024 Encounter Details Date Type Department Care Team ([facility] st Contact Info) Description 02/07/2024 Refill [facility] [address] [place], [place] [phone] Darcie Escalante MD [address] [place] [address] Social History Tobacco Use Types Packs/Day Years [...] Description 01/23/2025 10:00 AM EDT Office Visit [facility] [address] [place] [address] Darcie Escalante MD [address] [place] [phone] documented as of this encounter Visit Diagnoses Not on filedocumented in this encounter Additional Health Concerns Assessment Noted Time PHQ-9 Depression Total Score: 8 04/06/20 23 10:44 AM EDT documented as of this encounter Care Teams Software Firmware Engineer Relationship Specialty Start Date End Date Darcie Escalante MD [address] [place] [id number] PCP - General Internal Medicine 03/17/23 documented as of this encounter
--- OUTSIDE RECORDS SUMMARY | 2024-11-29 14:41 | XMS_ITS | Clinical Summary ---
Author Organization [employer] Address [address] [facility] [address] [place] [address] Care Team Providers Care Crusher Name Role Phone Darcie Escalante MD Primary Care Pro vider Allergies No known active allergies Medications ibuprofen 600 MG tablet Take by mouth. By mouth Q 8 prn Active cholecalciferol (Vitamin D-3) 125 MCG (5000 UT) capsule Take 125 mcg by mouth in the morning. 12/03/19 23 Active Alcohol Swabs (Alcohol Pads) 70 % pads Use as directed on skin 100 each 06/24/20 23 Active Blood Pressure Monitor kitIndications: Elevated blood pressure reading 1 kit in the morning. 1 kit 07/01/20 23 Active Multiple Vitamin (multivitamin) tablet Take 1 tablet by mouth in the morning. OTC Active cyclobenzaprine (Flexeril) 10 MG tablet Take 1 tablet (10 mg) by mouth at bedtime for 10 days. 10 tablet 07/02/20 24 Active nicotine polacrilex (Nicorette) 2 MG gum CHEW 1 PIECE OF GUM EVERY 2 HOURS NEEDED FOR SMOKING CESSATION 100 each 07/26/20 24 Active predniSONE (Deltasone) 5 MG tablet TAKE 3 TABLETS BY MOUTH EVERY DAY FOR FOURTEEN DAYS, THEN DECREASE TO 2 TABLETS DAILY FOR FOURTEEN DAYS, THEN 1 TABLET DAILY FOR FOURTEEN DAYS 07/25/20 24 Active lisinopril 10 MG tabletIndicatio ns:Elevated blood pressure reading TAKE 1 TABLET BY MOUTH EVERY DAY 90 tablet 08/07/20 24 Active rosuvastatin (Crestor) 5 MG tablet TAKE 1 TABLET BY MOUTH EVERY DAY IN THE MORNING 90 tablet 1 10/18/20 24 Active omega-3 acid ethyl esters (Lovaza) 1 g capsule TAKE 1 CAPSULE BY MOUTH EVERY MORNING 90 capsule 1 10/18/20 24 Active betamethasone dipropionate (Diprosone) 0.05 % ointment APPLY TO THE AFFECTED AREA(S) ON FACE TWICE DAILY NEEDED FOR flares, DECREASE USE as symptoms improve 10/15/20 24 Active hydroxychloroqu ine (Plaquenil) 200 MG tablet Take 1 tablet by mouth 2 times daily. 08/29/20 24 Active Tirzepatide-Hossein ght Management (Zepbound) 7.5 MG/0.5ML solution auto-injectorIn dications:Obesi ty (BMI 30.0-34.9) Inject 0.5 mL (7.5 mg) under the skin 1 (one) time per week. 2 mL 11/28/19 25 Active norethindrone (Micronor) 0.35 MG tablet Take 1 tablet (0.35 mg) by mouth Once per day. PRESCRIBED ONLY FOR 28 DAYS 28 tablet 07/11/20 24 025 Discontinued(T herapy completed) Crisaborole (Eucrisa) 2 % ointmentIndicat ions:Atopic dermatitis, unspecified type Apply twice daily 60 g 2 07/27/20 24 025 Discontinued(I neffective) Tirzepatide-Hossein ght Management 2.5 MG/0.5ML solution auto-injector Inject 0.5 mL (2.5 mg) under the skin 1 (one) time per week. 0.5 mL 2 09/04/20 24 025 Discontinued(D ose adjustment) Tirzepatide-Hossein ght Management (Zepbound) 5 MG/0.5ML solution auto-injectorIn dications:Obesi ty (BMI 30.0-34.9) Inject 0.5 mL (5 mg) under the skin 1 (one) time per week. 2 mL 11/02/19 25 025 Discontinued Active Problems Problem Noted Date Diagnosed Date Discoid lupus 02/15/2024 Abnormal echocardiogram 02/15/2024 Hypertension 12/27/2023 Leg pain, anterior 08/30/2023 Assessment & Plan (11/30/2023 3:41 PM EST): She has cellulitis at this time, unclear why its taking >3mo to heal? I will order Xray to see if there are any osteomyelitis changes, may need CT scan if negative. Rx Duricef for cellulitis x 7d only. FU with PCP next mo Primary insomnia 07/25/2023 Assessment & Plan (07/25/2023 9:22 AM EDT): ? Sec to HTN? Start lisinopril for htn and fu w PCP Off Desyrel. Tobacco use 04/06/2023 Assessment & Plan (06/26/2023 10:14 AM EDT): Started smoking 18 y until 31 years and again since 37 y of age --now stopped for 2 months --used to smoke 3 cigarettes a day and most recently was vaping instead that last 4 days. ---PQT calc 2.1 -advised to continue avoiding tobacco -denies need x any nicotine aids -will monitor Assessment & Plan (04/06/2023 11:22 AM EDT): Started smoking 18 y until 31 years and again since 37 y of age --now stopped 3 weeks ago --used to smoke 3 cigarettes a day and most recently was vaping instead that last 4 days. ---PQT calc 2.1 -advised to continue avoiding tobacco -denies need x any nicotine aids -will monitor Anxiety and depression 04/06/2023 Assessment & Plan (06/26/2023 10:20 AM EDT): PHQ9: 8 ,denies SI,tonie nor hallucinations ,reports anxiety ,states 8 y ago had superficial cut of wrist ,denies violence at home -continue care w her therapist and psychiatrist -continue antidepressants Assessment & Plan (04/06/2023 11:28 AM EDT): PHQ9: 8 today ,denies SI,tonie nor hallucinations ,reports anxiety ,states 8 y ago had superficial cut of wrist ,denies violence at home -continue care w her therapist and psychiatrist -continue antidepressants -pt stopped x few days x no particular reason -advised to be complaint -pt states will use again Health care maintenance 04/06/2023 Assessment & Plan (06/26/2023 10:34 AM EDT): -pap smear : 2021 neg per pt at [facility] --no able to obtain previous record -contraception: s/P tubal ligation -vaccines: s/P covid 19 x3 and Bivalent ,s/P tdap 2018 , pt will check if had HPV in her COB if not will be interested in vaccination -pt will bring record. Hep B immune ------- -Echo 04/12/2023: mild global hypokinesis of LV contraction .EF 45-50% mildly impaired --will discuss w pt at next apt -Abd US 10/2020: Hepatosplenomegaly ,abnormal echogenicity of liver suggestive of steatosis with focal sparring of GB fossa. Assessment & Plan (04/06/2023 11:32 AM EDT): -pap smear : 2021 neg per pt at [facility] -- ---- requested record to [facility] today -contraception: s/P tubal ligation -vaccines: s/P covid 19 x3 and Bivalent ,s/P tdap 2017 , pt will check if had HPV in her COB if not will be interested in vaccination -pt will bring record -labs x annual exam-will RTC in fasting -pt agreed to have STI testing including HIV to have for baseline Obesity (BMI 30.0-34.9) 02/14/2023 Assessment & Plan (06/26/2023 9:55 AM EDT): BMI 34.5 Currently 191<--- 188 pounds from 191 -doing diet and exercise -pt f w bariatric program w plan to have surgery soon per pt -but on hold per pt if not able to lose extra 10 pounds -continue life style changes advised -discussed about requested option for GLP1 -pt denies hx of pancreatitis , nor personal nor fx hx of Thyroid ca-explained possible SE and how to use -px today ozempic 0.25 mg weekly x 4 weeks and then 0.5 mg weekly -f here in 6- 8 weeks Assessment & Plan (04/06/2023 11:17 AM EDT): BMI 34.5 Currently 188 pounds from 191 -w diet and exercise -pt f w bariatric program w plan to have surgery soon per pt -continue life style changes Hyperlipidemia 01/20/2023 Assessment & Plan (06/26/2023 10:17 AM EDT): 05/2023 Trig 259, total ch 228, LDL 139,HDL 38 -life style changes advised -on crestor -add omega 3 daily -repeat fasting lipids in 6 mo Dermatitis 01/20/2023 Assessment & Plan (07/29/2023 9:27 AM EDT): Conflicting skin biopsies. ?? Will check lab and will schedule her for Patch testing with the [facility] ?? Continue Elidel cream, twice daily ?? Begin Heliocare 1 cap every morning and CeraVe Mineral Sunscreen spf 50 every morning ?? Reinforce gentle cleansers and moisturizers ?? Return to clinic in one-week for re-evaluation. Assessment & Plan (06/26/2023 10:30 AM EDT): Pt w facial rash from record had skin bx w prior laundry machine mechanic told to be negative x concerning autoimmune dx Possible allergic contact dermatitis from derm's note 05/2023 ESR 23 ( Elevated) , CRP wnl,total protein mild elev at 8.5, LEN neg,RF neg . -here f w laundry machine mechanic on pimecrolimus 1% BID and minocycline 100 mg BID x 14 days -close to complete tx -continue care w laundry machine mechanic -next apt 07/08/2023 -may need to consider to hold statins as it can be associated w eczema discuss w pt at next apt if rash still present -referred to bottle machine operator by derm to get apt Assessment & Plan (04/06/2023 11:28 AM EDT): Pt w facial rash from record had skin bx w prior laundry machine mechanic told to be negative x concerning autoimmune dx Possible allergic contact dermatitis from derm's note -here f w laundry machine mechanic started on tacrolimus topical w improvement and to keep topical steroids -to f w derm in 6 weeks -referred to bottle machine operator by ned al to get apt -pt reports on and off arthralgias seems more in right hand, no rigidity - possible from overuse? -will check LEN,CRP,ESR and RF -will r/o in setting of rash and sister w unspecified autoimmune dx -w low WBC or platelets -pt will check info and let me know at next visit Assessment & Plan (02/14/2023 9:37 AM EDT): Rx medrol pack. D/w patient to fu closely with derm for a more definitive rx, avoid oral steroid use. Continue topical mometasone + Metrogel. Use non scented, face soap and moisturizer. Chronic migraine 01/20/2023 Resolved Problems Problem Noted Date Diagnosed Date Resolved Date Vaginal spotting 11/30/2023 12/27/2023 Assessment & Plan (11/30/2023 3:40 PM EST): It could be related to weight gain, regular hormonal change? Order labs, ro STI. FU with PCP if sxs persist next month. Encounters Date Type Department Care Team Description 11/28/2024 Refill [facility] [address] [place] [phone] Gladis Mcmullen ANP Obesity (BMI 30.0-34.9) 11/23/2024 Telephone [facility] [address] [place] [phone] Len Chadwick MD 11/15/2024 Telephone [facility] [address] [place], [place] [phone] Len Chadwick MD 11/12/2024 Orders Only [facility] External Provider, [facility] 11/02/2024 9:00 AM EST Office Visit [facility] [address] [place] [address] Gladis Mcmullen ANP Obesity (BMI 30.0-34.9) (Primary Dx); Hyperlipidemia, unspecified hyperlipidemia type; Primary hypertension; Screening for cervical cancer 11/02/2024 Travel 10/17/2024 Refill [facility] [address] [place] [address] Darcie Escalante MD 09/11/2024 Telephone [facility] [address] [place] [phone] Lizbeth Brown MA PA for Zepbound 2.5mg; PA approval 09/04/2024 Orders Only [facility] [address] [place] [address] Darcie Escalante MD 09/04/2024 Telephone [facility] [address] [place] [address] Zaira Najera RN Medication Question 08/30/2024 Telephone [facility] [address] [place] [address] Darcie Escalante MD Prior Authorization from Last 3 Months Immunizations Name Administration Dates Next Due INFLUENZA INJECTABLE QUADRIV ALANT CCIIV4 MDCK Multi-dose vial 07/03/2018 Influenza Injectable Quadriv alant Preservative Free IIV4 MDCK 09/14/2022,07/21/2021,10/29/2020,2018 Influenza, seasonal, injecta ble, preservative free 08/07/2024 Pfizer Covid-19 Vaccine 12+ 08/07/2024 Pfizer Covid-19 Vaccine 12+ Bivalent 01/20/2023 Tdap 07/03/2018 Family History Medical History Relation Name Comments Hyperlipidemia Brother Diabetes Father Hyperlipidemia Father Hypertension Father Diabetes Mother Hyperlipidemia Mother Hypertension Mother breast cancer at 63 Mother Crohn's disease Sister Depression Sister autoimmune thrombocytopenia Sister Relation Name Status Comments Brother Father Mother Sister Social History Tobacco Use Types Packs/Day Years Used Date Smoking Tobacco: Former Cigarettes Passive Smoke Exposure: Past Smokeless Tobacco: Never Tobacco Cessation:Counseling Given: Not Answered Comments:Started smoking 18 y until 31 years [...] Orientation Straight 08/23/2022 10 :36 AM EDT Last Filed Vital Signs Vital Sign Reading Time Taken Comments Blood Pressure 135/87 11/02/2024 9:04 AM EST Pulse 80 11/02/2024 9:04 AM EST Temperature 36.7 ??C (98 ??F) 11/02/2024 9:04 AM EST Respiratory Rate 14 11/02/2024 9:04 AM EST Oxygen Saturation 96% 11/02/2024 9:04 AM EST Inhaled Oxygen Concentration - - Weight 85.1 kg (187 lb 9.6 oz) 11/02/2024 9:04 A M EST Height 157.5 cm (5' 2 ) 08/07/2024 2:11 PM EDT Body Mass Index 34.31 08/07/2024 2:11 PM EDT Plan of Treatment Upcoming Encounters Date Type Department Care Team (Late st Contact Info) Description 01/23/2025 10:00 AM EDT Office Visit [facility] [address] [place] [address] Darcie Escalante MD [address] [place] [phone] Health Maintenance Due Date Last Done Comments Alcohol/Substance Use Screening 1999 Family Planning (PISQ) 2002 Hepatitis A Vaccines (1 of 2 - Risk 2-dose series) 2006 Hepatitis B Vaccines (1 of 3 - 19+ 3-dose series) 2006 Pap Smear 01/11/2008 Cervical Cancer Screening 2017 HPV/Cotest 2017 Depression Monitoring (PHQ-9) 12/20/2024 06/19/2024, 06/19/2024 SDOH Screening 06/01/2025 06/01/2024 Depression Screening 06/19/2025 06/19/2024, 06/19/20 Tobacco Screening 11/02/2025 11/02/2024 DTaP/Tdap/Td Vaccines (2 - Td or Tdap) 07/03/2028 07/03/2018 Lipid Panel 08/07/2029 08/07/2024, 01/23, 06/06/2023 Zoster Vaccines (1 of 2) 2037 RSV Patients and Patients Aged 60 years or older (1 - 1-dose 75+ series) 2062 COVID-19 Vaccine Completed 08/07/2024, , 09/02/2021, Additional history exists HIV Screening Completed 08/07/2024, 06/06/2023 Hepatitis C Screening Completed 08/07/2024, 023 Influenza Vaccine Completed 08/07/2024, , 07/21/2021, Additional history exists HIB Vaccines Aged Out No longer eligi ble based on patient's age to complete this topic HPV Vaccines Aged Out No longer eligi ble based on patient's age to complete this topic IPV Vaccines Aged Out No longer eligi ble based on patient's age to complete this topic Meningococcal Vaccine Aged Out No braulio chris eligible based on patient's age to complete this topic Pneumococcal Vaccine: Pediatrics (0 to 5 Years) and At-Risk Patients (6 to 49) Years) Aged Out No longer eligible based on patient's age to complete this topic RSV under 20 months Aged Out No longe r eligible based on patient's age to complete this topic Rotavirus Vaccines Aged Out No longer eligible based on patient's age to complete this topic Procedures Procedure Name Priority Date/Time Associated Diagnosis Comments XR KNEE 4+ VIEWS RIGHT Routine 11/12/2024 10:46 AM EST XR KNEE 4+ VIEWS LEFT Routine 11/12/2024 10:46 AM EST HEPATITIS C AB W/REFL TO HCV RNA, QN, PCR Routine 08/07/2024 8:40 AM EDT Annual physical exam HIV 1/2 ANTIGEN/ANTIBODY, FOURTH GENERATION W/RFL Routine 08/07/2024 8:40 AM EDT Annual physical exam LIPID PANEL, STANDARD Routine 08/07/2024 8:40 AM EDT Annual physical exam from Last 3 Months or Most Recently Relevant to Health Maintenance Results * XR Knee 4+ Views Right (11/12/2024 10:46 AM EST) Anatomical Region Laterality Modality Lower Extremities, Knee Right [facility] Imaging 11/12/2024 10:4 6 AM EST Narrative 11/12/2024 1:07 PM EST ? [facility] ?[address] ?[place] [address] ?XRay Report ? Signed ? Patient: Colon Styles,Aleta ?MR#: [id number] ?? 41 ? : 1985 ?Acct:[id number] ? Age/Sex: 39 / F ?ADM Date: 01/20/25 ? Loc: HO.XRAY ? Attending Dr: Clare Aguillon MD ? Ordering Physician: Clare Aguillon MD ?? Date of Service: 11/12/24 ?? Procedure(s): XR knee RT 4V ?? Accession Number(s): [id number] ? cc: Clare Aguillon MD; Darcie Escalante MD ? EXAMINATION: ?? XR KNEE, RIGHT ? CLINICAL INFORMATION: ?? M25.561 - Pain in right knee ? COMPARISON: ?? None available. ? TECHNIQUE: ?? Three views of the right knee. ? FINDINGS: ?? The tricompartmental joint spaces preserved. There is no visible acute ?? fracture, dislocation subluxation seen. There is minimal right lateral ?? patellar spur present. No joint effusion seen. There are no loose ?? bodies. The soft tissues are normal. ? XR/XR knee RT 4V ?? IMPRESSION: ?? Small right lateral patellar spur. ? No visible acute fracture, dislocation or lytic process seen. ? Electronically signed by: ??Morales Ballesteros MD ??11/12/2024 01:04 PM EST RP ? Dictated By: ?Morales Ballesteros MD ? Signed By: ?<Electronically signed by Morales Ballesteros MD in OV> ?11/12/24 1304 ? DD/ 1046 ? TD/TT: 11/12/24 1108 ? Car And Yard Supervisor: MSM ? Procedure Note Rachael, Image - 11/12/[address] [address] XRay Report Signed Patient: Aleta BaltazarMR#: [id number] 41 : 1985Acct:[id number] Age/Sex: 39 / FADM Date: 11/12/24 Loc: [facility] Attending Dr: Clare Aguillon MD Ordering Physician: Clare Aguillon MD Date of Service: 11/12/24 Procedure(s): XR knee RT 4V Accession Number(s): [id number] cc: Clare Aguillon MD; Darcie Escalante MD EXAMINATION: XR KNEE, RIGHT CLINICAL INFORMATION: M25.561 - Pain in right knee COMPARISON: None available. TECHNIQUE: Three views of the right knee. FINDINGS: The tricompartmental joint spaces preserved. There is no visible acute fracture, dislocation subluxation seen. There is minimal right lateral patellar spur present. No joint effusion seen. There are no loose bodies. The soft tissues are normal. XR/XR knee RT 4V IMPRESSION: Small right lateral patellar spur. No visible acute fracture, dislocation or lytic process seen. Electronically signed by: Morales Ballesteros MD 11/12/2024 01:04 PM EST RP Dictated By: Morales Ballesteros MD Signed By: <Electronically signed by Morales Ballesteros MD in OV> 11/12/24 1304 DD/ 1046 TD/TT: 11/12/24 1108 Car And Yard Supervisor: YULY [facility] External Provider IMG XR PROCEDURES Final Result * XR Knee 4+ Views Left (11/12/2024 10:46 AM EST) Anatomical Region Laterality Modality Lower Extremities, Knee Left Radiogra phic Imaging 11/12/2024 10:4 6 AM EST Narrative 11/12/2024 1:05 PM EST ? [facility] ?[address] ?[place] [address] ?XRay Report ? Signed ? Patient: Colon Styles,Aleta ?MR#: [id number] ?? 41 ? : 1985 ?Acct:[id number] ? Age/Sex: 39 / F ?ADM Date: 11/12/24 ? Loc: HO.XRAY ? Attending Dr: Clare Aguillon MD ? Ordering Physician: Clare Aguillon MD ?? Date of Service: 11/12/24 ?? Procedure(s): XR knee LT 4V ?? Accession Number(s): [id number] ? cc: Clare Aguillon MD; Darcie Escalante MD ? EXAMINATION: ?? XR KNEE, LEFT ? CLINICAL INFORMATION: ?? M25.561 - Pain in right knee ? COMPARISON: ?? None available. ? TECHNIQUE: ?? 3 views of the left knee. ? FINDINGS: ?? The tricompartmental joint spaces are maintained normal. No visible ?? acute fracture, dislocation, bony changes or loose bodies seen. No ?? abnormal joint effusion. ? XR/XR knee LT 4V ?? IMPRESSION: ?? Unremarkable left knee exam ? Electronically signed by: ??Morales Ballesteros MD ??11/12/2024 01:03 PM EST RP ? Dictated By: ?Lesli,Morales S MD ? Signed By: ?<Electronically signed by Morales Ballesteros MD in OV> ?11/12/24 1303 ? DD/ 1046 ? TD/TT: 11/12/24 1108 ? Car And Yard Supervisor: MSM ? Procedure Note Donotjustineter, Image - 11/12/[address] [address] XRay Report Signed Patient: Aleta BaltazarMR#: [id number] 41 : 1985Acct:[id number] Age/Sex: 39 / FADM Date: 11/12/24 Loc: HO.XRAY Attending Dr: Clare Aguillon MD Ordering Physician: Clare Aguillon MD Date of Service: 11/12/24 Procedure(s): XR knee LT 4V Accession Number(s): [id number] cc: Clare Aguillon MD; Darcie Escalante MD EXAMINATION: XR KNEE, LEFT CLINICAL INFORMATION: M25.561 - Pain in right knee COMPARISON: None available. TECHNIQUE: 3 views of the left knee. FINDINGS: The tricompartmental joint spaces are maintained normal. No visible acute fracture, dislocation, bony changes or loose bodies seen. No abnormal joint effusion. XR/XR knee LT 4V IMPRESSION: Unremarkable left knee exam Electronically signed by: Morales Ballesteros MD 11/12/2024 01:03 PM [facility] Dictated By: Morales Ballesteros MD Signed By: <Electronically signed by Morales Ballesteros MD in OV> 11/12/24 1303 DD/ 1046 TD/TT: 11/12/24 1108 Car And Yard Supervisor: MSM [facility] External Provider IMG XR PROCEDURES Final Result * Hepatitis C Antibody with Reflex to HCV, RNA, Quantitative, Real-Time PCR (08/07/2024 8:40 AM EDT) Hepatitis C Antibody Nonreactive Nonreactive [facility] Comment:Antibodies to HCV no t detected; does not exclude early acuteHCV infection. Blood Venous blood specimen / Unknown 08/07/2024 8:40 AM EDT 08/07/2024 11:11 AM EDT Darcie Joel MD LAB BLOOD ORDERAB LES Final Result Performing Organization Address City/[facility]/ZIP Co de Phone Number [facility] [address] [place] [phone] * HIV-1/2 Antigen and Antibodies, Fourth Generation, with Reflexes (08/07/2024 8:40 AM EDT) HIV AB/AG Nonreactive Nonreactive [facility] Comment:HIV-1 p24 Ag and/or HIV-1/HIV-2 Ab not detected.A test result that is nonreactive does not exclude thepossibility of exposure to or infection with HIV-1 and/orHIV-2. Nonreactive results in this assay for individualswith prior exposure to HIV-1 and/or HIV-2 may be due toantigen and antibody levels that are below the limit ofdetection of this assay.The [employer]cat HIV Ag/Ab Combo assay result andsupplemental assay results should be interpreted inconjunction with the patient's clinical presentation,history and other laboratory results. If the results areinconsistent with clinical evidence, additional testing issuggested to confirm the result. Blood Venous blood specimen / Unknown 08/07/2024 8:40 AM EDT 08/07/2024 11:11 AM EDT us Darcie Joel MD LAB BLOOD ORDERAB LES Final Result Performing Organization Address City/[facility]/ZIP Co de Phone Number [facility] [address] [place] [phone] * (ABNORMAL) Lipid Panel, Standard (08/07/2024 8:40 AM EDT) Triglycerides 198(H) <150 mg/dL [facility] Comment:Desirable Triglyceri de: less than 150 mg/dLBorderline High Triglyceride 150-199 mg/dLHigh Triglyceride: 200-499 mg/dLVery High Triglyceride: greater than or equal to 5OO mg/dL Cholesterol 179 <200 mg/dL [facility] Comment:Desirable Cholestero l: less than 200 mg/dLBorderline High Cholesterol: 200-239 mg/dLHigh Cholesterol: greater than 239 mg/dL LDL Cholesterol Calculated 96 <100 mg/dL [facility] Comment:Desirable LDL: less than 100 mg/dLNear Optimal/Above Optimal LDL: 110- 129 mg/dLBorderline High LDL: 130-159 mg/dLHigh LDL: 160-189 mg/dLVery High LDL: greater than or equal to 190 mg/dL HDL Cholesterol 44 >40 mg/dL [facility] Comment:Desirable HDL: great er than 40 mg/dL Note: This HDL assay may give artificially low results in patients with liver disease. Blood Venous blood specimen / Unknown 08/07/2024 8:40 AM EDT 08/07/2024 11:11 AM EDT Darcie Joel MD LAB BLOOD ORDERAB LES Final Result [facility] [address] [place] [phone] from Last 3 Months or Most Recently Relevant to Health Maintenance Insurance [facility] C3 Care Teams Crusher Relationship Specialty Start Date End Date Darcie Escalante MD [address] [place] [phone] PCP - General Internal Medicine 03/17/23
--- OUTSIDE RECORDS SUMMARY | 2024-11-29 14:41 | XMS_ITS | Encounter Summary ---
Author Organization [employer] Address [address] [facility] 7t [place] [address] Care Team Providers Care Associate Professor Of Economics Name Role Phone Darcie Escalante MD Primary Care Pro vider Reason for Visit * Reason Comments Med Refill Encounter Details Date Type Department Care Team ([facility] st Contact Info) Description 11/28/2024 Refill [facility] [address] [place], [place] [phone] Gladis Mcmullen, ANP 230 [place], [place] [phone] Obesity (BMI 30.0-34.9) Social History Tobacco Use Types Packs/Day Years [...] Description 01/23/2025 10:00 AM EDT Office Visit [facility] [address] [place] [address] Darcie Escalante MD [address] [place] [address] documented as of this encounter Visit Diagnoses Diagnosis Obesity (BMI 30.0-34.9) documented in this encounter Additional Health Concerns Assessment Noted Time PHQ-9 Depression Total Score: 9 06/19/20 24 10:11 AM EDT documented as of this encounter Care Teams Associate Professor Of Economics Relationship Specialty Start Date End Date Darcie Escalante MD [address] [place] [address] PCP - General Internal Medicine 03/17/23 documented as of this encounter
--- OUTSIDE RECORDS SUMMARY | 2024-11-29 14:41 | XMS_ITS | Encounter Summary ---
Author Organization [facility] Address [address] [place] [address] [address] [address] Care Team Providers Care Statistician Applied Name Role Phone Darcie Escalante MD Primary Care Pro vider Encounter Details Date Type Department Care Team (Latest Contact Info) Description 08/28/2019 Abstract [facility] CONVERSIONS Dental, Provider, DDS Social History Tobacco [...] Description 01/23/2025 10:00 AM EDT Office Visit [facility] 230 [place] [address] Darcie Escalante MD 230 [place] [address] documented as of this encounter Visit Diagnoses Not on filedocumented in this encounter Care Teams Statistician Applied Relationship Specialty Start Date End Date Darcie Escalante MD 230 [place], [place] [phone] PCP - General Internal Medicine 03/17/23 documented as of this encounter
--- OUTSIDE RECORDS SUMMARY | 2024-11-29 14:41 | XMS_ITS | Encounter Summary ---
Author Organization [employer] Address [address] [place] [address] 7 [place] [address] Care Team Providers Care Garment Liner Name Role Phone Darcie Escalante MD Primary Care Pro vider Reason for Visit * Reason Comments Med Refill Encounter Details Date Type Department Care Team ([facility] st Contact Info) Description 07/05/2024 Refill [facility] 230 [place] [address] Darcie Escalante MD [address] [place] [address] Social History Tobacco Use Types Packs/Day Years Used Date Smoking Tobacco: Every Day Cigarettes Passive Smoke Exposure: Past Smokeless Tobacco: [...] Description 01/23/2025 10:00 AM EDT Office Visit [facility] [address] [place] [address] Darcie Escalante MD [address] [place] [address] documented as of this encounter Visit Diagnoses Not on filedocumented in this encounter Additional Health Concerns Assessment Noted Time PHQ-9 Depression Total Score: 9 06/19/20 24 10:11 AM EDT documented as of this encounter Care Teams Garment Liner Relationship Specialty Start Date End Date Darcie Escalante MD [address] [place] [address] [phone] PCP - General Internal Medicine 03/17/23 documented as of this encounter
--- OUTSIDE RECORDS SUMMARY | 2024-11-29 14:41 | XMS_ITS | Clinical Summary ---
Author Organization [facility] Address [address] [place] [address] Care Team Providers Care Mainspring Former Name Role Phone Juana Kim MD Primary Care Prov ider Allergies No known active allergies Medications Medication Sig Dispensed Refills Start Date End Date Status rosuvastatin (CRESTOR) 5 mg tablet Take 1 tablet (5 mg total) by mouth 1 (one) time each day. 11/17/2022 Active doxycycline hyclate (VIBRA-TABS) 100 mg tablet Take 1 tablet (100 mg total) by mouth 2 (two) times a day. Active hydrOXYzine HCL (ATARAX) 10 mg tablet Take 1 Tablet by mouth at bedtime. 11/01/2022 Active triamcinolone (KENALOG) 0.1 % cream Apply thin layer to affected area two times a day for up to two weeks 07/21/2021 Active Active Problems Problem Noted Date Diagnosed Date Depression 10/11/2024 Hyperlipidemia 10/11/2024 Clinical diagnosis of COVID-19 02/08/2022 Overview (10/11/2024): Patient attached results to [employer] message. Fatty liver disease, nonalcoholic 10/28/2020 Transaminitis 09/09/2020 Overview (10/11/2024): Liver sono shows hepatic steatosis Obesity (BMI 30-39.9) 11/28/2019 Allergic rhinitis 2018 Immunizations Name Administration Dates Next Due Influenza Quadravalent, MDCK , 0.5ml, preservative free (Flucelvax) 6mo and older 09/14/2022,07/21/2021,10/29/2020,2018 Influenza Quadravalent, MDCK , 0.5ml, with preservative (Flucelvax) 6mo and older 07/03/2018 PPD Test 01/03/2019 Tdap Tetanus diptheria acell ular pertussis (Boostrix; Adacel) 7yo and older 07/03/2018 Surgical History Surgery Date Site/Laterality Comments SECTION 2008, 2011 PROCEDURE: HISTORICAL TUBAL LIGATION 2012 PROCEDURE: HISTORICAL TUBAL LIGATION Medical History Medical History Date Comments Hyperlipidemia DX:Hyperlipidemi a Depression DX:Depression Allergic rhinitis 2018 DX:Allergic rh initis 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 Family History Medical History Relation Name Comments Diabetes Father Hyperlipidemia Father Breast cancer Mother Diabetes Mother Depression Sister Ovarian cancer Neg Hx Uterine cancer Neg Hx Relation Name Status Comments Father Alive Maternal Grandfather Maternal Grandmother Mother Alive Paternal Grandfather Paternal Grandmother Sister Social History Tobacco Use Types Packs/Day Years Used Date Smoking Tobacco: Every Day Smokeless Tobacco: Never Alcohol Use Standard Drinks/Week Comments No 0 (1 standard drink = 0.6 oz pur e alcohol) Sex and Gender Information Value Date Recorded Sex Assigned at Not on file Gender Identity Not on file Sexual Orientation Not on file Obstetrics History Last Filed Vital Signs Vital Sign [place] Time Taken Comments Blood Pressure 136/79 11/17/2022 9:27 AM EST Pulse 72 11/17/2022 9:27 AM EST Temperature - - Respiratory Rate - - Oxygen Saturation - - Inhaled Oxygen Concentration - - Weight 89.3 kg (196 lb 12.8 oz) 11/17/2022 9:27 AM EST Height 157.5 cm (5' 2 ) 11/17/2022 9:27 AM EST Body Mass Index 36 11/17/2022 9:27 AM EST Plan of Treatment Upcoming Encounters Date Type Department Care Team (Late st Contact Info) Description 04/10/2025 9:45 AM EDT Office Visit [facility] [place] [address] [place] [address] Caitie Reyes, ZOILA [address] [place] [address] Health Maintenance Due Date Last Done Comments Pneumococcal Vaccine: Pediatrics (0 to 5 Years) and At-Risk Patients (6 to 64 Years) (1 of 2 - PCV) 1993 Hepatitis B Vaccines (1 of 3 - 19+ 3-dose series) 2006 Social Influencers of Health Screening 10/02/2022 Depression Screening 04/06/2024 04/06/2023 COVID-19 Vaccine (4 - season) 2024 09/02/2021, 12/19/2020, 11/27/2020 Influenza Vaccine (#1) 2024 , 07/21/2021, 10/29/2020, Additional history exists Cholesterol Screening (Lipid Panel) 05/03/2027 05/03/2022 Cervical Cancer Screening: HPV 11/24/2027 11/24/2022 DTaP,Tdap,and Td Vaccines (2 - Td or Tdap) 07/03/2028 07/03/2018 HIV Screening Completed 11/15/2022 Hepatitis C Screening Completed 11/15/2022 HIB Vaccines Aged Out No longer eligi ble based on patient's age to complete this topic HPV Vaccines Aged Out No longer eligi ble based on patient's age to complete this topic Hepatitis A Vaccines Aged Out No long er eligible based on patient's age to complete this topic IPV Vaccines Aged Out No longer eligi ble based on patient's age to complete this topic MMR Vaccines Aged Out No longer eligi ble based on patient's age to complete this topic Meningococcal ACWY Vaccine Aged Out N o longer eligible based on patient's age to complete this topic RSV Immunization Patients Under 20 months Aged Out No longer eligible based on patient's age to complete this topic Varicella Vaccines Aged Out No longer eligible based on patient's age to complete this topic Procedures Procedure Name Priority Date/Time Associated Diagnosis Comments HPV Routine 11/24/2022 HEPATITIS C SCREENING Routine 11/15/2022 HIV SCREENING Routine 11/15/2022 LIPID PANEL Routine 05/03/2022 from Last 3 Months or Most Recently Relevant to Health Maintenance Results * Cervical Cancer Screening: HPV (11/24/2022) [facility] Cervical Cancer Screening: HPV abstracted, negative Historical Provider [facility] * HIV Screening (11/15/2022) [facility] HIV Screening abstracted Historical Provider [facility] * Hepatitis C Screening (11/15/2022) [facility] Hepatitis C Screening abstracted Historical Provider [facility] E (ABNORMAL) Lipid panel (05/03/2022) [facility] LDL/HDL Ratio 7(A) 0 - 4 Triglycerides 247(A) 0 - 150 mg/dL Cholesterol 234(A) 0 - 200 mg/dL HDL 36(A) 40 mg/dL LDL Cholesterol 149(A) 0 - 100 mg/dL Blood Venous blood specimen / Unknown Historical Provider LAB BLOOD ORDERAB LES from Last 3 Months or Most Recently Relevant to Health Maintenance Care Teams Mainspring Former Relationship Specialty Start Date End Date Juana Kim MD PCP - General Internal Medicine 05/24/22
--- OUTSIDE RECORDS SUMMARY | 2024-11-29 14:41 | XMS_ITS | Encounter Summary ---
Author Organization [employer] Address [address] [place] [address] 7 [place] [address] Care Team Providers Care Director Of Safety Name Role Phone Darcie Escalante MD Primary Care Pro vider Reason for Visit * Reason Comments Follow-up Encounter Details Date Type Department Care Team (Latest Contact Info) Description 11/02/2024 9:00 AM EST Office Visit [facility]INE 230 [place], [place] [phone] Gladis Mcmullen ANP [address] [place], [place] [phone] Obesity (BMI 30.0-34.9) (Primary Dx); Hyperlipidemia, unspecified hyperlipidemia type; Primary hypertension; Screening for cervical cancer Social History Tobacco Use Types Packs/Day Years [...] AM EDT documented as of this encounter Last Filed Vital Signs Vital Sign Reading [...] oz) 11/02/2024 9:04 A M EST Height - - Body Mass Index 34.31 08/07/2024 2:11 PM EDT documented in this encounter Progress Notes * ARON Li - 11/02/2024 9:00 AM EST Subjective Patient ID: Aleta Styles is a 39 y.o. female who presents for Follow-up. HPI PCP Dr. 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 Wt: current weight 187lb (85.1kg) and BMI 34.31. This is down from 190lb (86.2 kg) 08/07/2024. Taking zepbound 2.5mg as rx'd. Tolerating well. Does not like as much as wegovy b/c has not lost asmuch weight. We discuss dosing of zepbound and agree to increase. Is exercising 2-3 times per week and trying to eat healthy. Is feeling really fatigued of late. Taking plaquenil as rx'd. Takes prednisone PRN (not at present). Has follow-up w/ [facility] in November. LMP 10/24/24 BCM BTL Paps at [facility]: thinks it was in the last 5-7 years. She will call for follow-up. Former smoker, now vaping Khmer interpretation by Gauri Gresham, nuclear medical technologist. Review of Systems Constitutional: Positive for fatigue. Negative for chills and fever. HENT: Negative for sore throat. Respiratory: Negative for cough and shortness of breath. Cardiovascular: Negative for chest pain. Gastrointestinal: Negative for abdominal pain, constipation, diarrhea, nausea and vomiting. Endocrine: Negative for polydipsia, polyphagia and polyuria. Genitourinary: Negative for dysuria. Objective BP 135/87 (BP Location: Left arm, Patient Position: Sitting, BP Cuff Size: Adult long) Pulse 80 Temp 98 ??F (36.7 ??C) (Temporal) Resp 14 Wt 187 lb 9.6 oz (85.1 kg) SpO2 96% BMI34.31 kg/m?? Physical Exam Constitutional: General: She is not in acute distress. Appearance: Normal appearance. She is not ill-appearing. HENT: Head: Normocephalic and atraumatic. Eyes: General: No scleral icterus. Extraocular Movements: Extraocular movements intact. Pupils: Pupils are equal, round, and reactive to light. Cardiovascular: Rate and Rhythm: Normal rate. Pulmonary: Effort: Pulmonary effort is normal. No accessory muscle usage or respiratory distress. Neurological: Mental Status: She is alert and oriented to person, place, and time. Gait: Gait normal. Psychiatric: Mood and Affect: Mood normal. Behavior: Behavior normal. Assessment/Plan Diagnoses and all orders for this visit: Obesity (BMI 30.0-34.9) Increase Zepbound to 5mg once weekly with plan to increase to 7.5mg the following mo if tolerating well. Reinforced recommendations below: Daily exercise at least 30min, moderate intensity, incorporating both cardiovascular exercise and weight training. Adequate protein intake, Recommended at least 20 g per meal of protein to assist with satiety. Decrease soda and sugary beverage consumption. Weight loss medications must be used as part of a comprehensive lifestyle plan that incorporates the recommendations above. - Tirzepatide-Weight Management (Zepbound) 5 MG/0.5ML solution auto-injector; Inject 0.5 mL (5 mg) under the skin 1 (one) time per week. Cervical Cancer Screening Thinks she has not had Pap in last 5 years. She will call [facility] for follow-up and let us know if referral needed. Hyperlipidemia, unspecified hyperlipidemia type Cont rosuvastatin 5mg. Primary hypertension Comments: Cont lisinopril 10mg daily, low salt diet At/near goal today, </= 130/80. Continue to encourage low salt diet, regular exercise, home BP monitoring, compliance with medications. Call clinic if BP is frequently >150/90 Go to ED/call 911 if > 170/100 and having sx such as GUEVARA, visual changes, chest pain, SOB Last renal function: Lab Results Component Value Date GLUCOSE 84 08/07/2024 NA 141 08/07/2024 K 3.8 08/07/2024 CO2 25 08/07/2024 CL 107 08/07/2024 BUN 14 08/07/2024 CREATININE 0.83 08/07/2024 EGFR >60 08/07/2024 No results found for: MICROALBCREA Lab Results Component Value Date MICROALBCREU 8.3 08/07/2024 documented in this encounter Plan of Treatment Upcoming Encounters Date Type Department Care Team (Late st Contact Info) Description 01/23/2025 10:00 AM EDT Office Visit [facility] [address] [place] [address] Darcie Escalante MD [address] [place] [address] documented as of this encounter Visit Diagnoses Diagnosis Obesity (BMI 30.0-34.9)- Primary Hyperlipidemia, unspecified hyperlipidemia type Primary hypertension Unspecified essential hypertension Screening for cervical cancer Screening for malignant neoplasm of the cervix documented in this encounter Additional Health Concerns Assessment Noted Time PHQ-9 Depression Total Score: 9 06/19/20 24 10:11 AM EDT documented as of this encounter Care Teams Director Of Safety Relationship Specialty Start Date End Date Darcie Escalante MD [address] [place] [address] PCP - General Internal Medicine 03/17/23 documented as of this encounter
--- OUTSIDE RECORDS SUMMARY | 2024-11-29 14:41 | XMS_ITS | Encounter Summary ---
Author Organization [employer] Address [address] [facility] 7t [place] [address] Care Team Providers Care Hard Metals Hand Engraver Name Role Phone Darcie Escalante MD Primary Care Pro vider Encounter Details Date Type Department Care Team ([facility] st Contact Info) Description 11/12/2024 Orders Only [facility] External Provider, [facility] Social History Tobacco Use Types Packs/Day Years [...] Upcoming Encounters Date Type Department Care Team ([facility] st Contact Info) Description 01/23/2025 10:00 AM EDT Office Visit [facility] [address] [place] [address] Darcie Escalante MD [address] [place] [address] documented as of this encounter Procedures Procedure Name Priority Date/Time Associated Diagnosis Comments XR KNEE 4+ VIEWS RIGHT Routine 11/12/2024 10:46 AM EST XR KNEE 4+ VIEWS LEFT Routine 11/12/2024 10:46 AM EST documented in this encounter Results * XR Knee 4+ Views Right (11/12/2024 10:46 AM EST) Anatomical Region Laterality Modality Lower Extremities, Knee Right [facility] Imaging 11/12/2024 10:4 6 AM EST Narrative 11/12/2024 1:07 PM EST ? [facility] ?[address] ?[place] [address] ?XRay Report ? Signed ? Patient: Colon Styles,Aleta ?MR#: [id number] ?? 41 ? : 1985 ?Acct:[id number] ? Age/Sex: 39 / F ?ADM Date: 01/20/25 ? Loc: HO.XRAY ? Attending Dr: Clare Aguillon MD ? Ordering Physician: Clare Aguillon MD ?? Date of Service: 11/12/24 ?? Procedure(s): XR knee RT 4V ?? Accession Number(s): [id number] ? cc: Clare Aguillon MD; Darcie Escalante [...] DD/ 1046 ? TD/TT: 11/12/24 1108 ? Vp Ancillary: MSM ? Procedure Note [place], Image - 11/12/[address] [address] XRay Report Signed Patient: Marvin Baltazar#: [id number] 41 : 1985Acct:[id number] Age/Sex: 39 / FADM Date: 11/12/24 Loc: [facility] Attending Dr: Clare Aguillon MD Ordering Physician: Clare Aguillon MD Date of Service: 11/12/24 Procedure(s): XR knee RT 4V Accession Number(s): [id number] cc: Clare Aguillon MD; Darcie Escalante MD [...] 11/12/24 1304 DD/ 1046 TD/TT: 11/12/24 1108 Vp Ancillary: YULY [facility] External Provider IMG XR PROCEDURES Final Result * XR Knee 4+ Views Left (11/12/2024 10:46 AM EST) Anatomical Region Laterality Modality Lower Extremities, Knee Left [facility] 11/12/2024 10:4 6 AM EST Narrative 11/12/2024 1:05 PM EST ? [facility] ?[address] ?[place] [address] ?XRay Report ? Signed ? Patient: Colon Styles,Aleta ?MR#: [id number] ?? 41 ? : 1985 ?Acct:[id number] ? Age/Sex: 39 / F ?ADM Date: 11/12/24 ? Loc: HO.XRAY ? Attending Dr: Clare Aguillon MD ? Ordering Physician: Clare Aguillon MD ?? Date of Service: 11/12/24 ?? Procedure(s): XR knee LT 4V ?? Accession Number(s): [id number] ? cc: Clare Aguillon MD; Darcie Escalante [...] 01:03 PM EST RP ? Dictated By: ?Morales Ballesteros MD ? Signed By: ?<Electronically signed by Morales Ballesteros MD in OV> ?11/12/24 1303 ? DD/ 1046 ? TD/TT: 11/12/24 1108 ? Vp Ancillary: MSM ? Procedure Note [place], Image - 11/12/[address] [address] XRay Report Signed Patient: Marvin Baltazar#: [id number] 41 : 1985Acct:[id number] Age/Sex: 39 / FADM Date: 11/12/24 Loc: [facility] Attending Dr: Clare Aguillon MD Ordering Physician: Clare Aguillon MD Date of Service: 11/12/24 Procedure(s): XR knee LT 4V Accession Number(s): [id number] cc: Clare Aguillon MD; Darcie Escalante MD [...] by: Morales Ballesteros MD 11/12/2024 01:03 PM EST Dictated By: Morales Ballesteros MD Signed By: <Electronically signed by Morales Ballesteros MD in OV> 11/12/24 1303 DD/ 1046 TD/TT: 11/12/24 1108 Vp Ancillary: MSM [facility] External Provider IMG XR PROCEDURES Final Result documented in this encounter Visit Diagnoses Not on filedocumented in this encounter Additional Health Concerns Assessment Noted Time PHQ-9 Depression Total Score: 9 06/19/20 24 10:11 AM EDT documented as of this encounter Care Teams Hard Metals Hand Engraver Relationship Specialty Start Date End Date Darcie Escalante MD [address] [place] [address] PCP - General Internal Medicine 03/17/23 documented as of this encounter
--- OUTSIDE RECORDS SUMMARY | 2024-11-29 14:41 | XMS_ITS | Encounter Summary ---
Author Organization [employer] Address [address] [place] [address] 7t [place] [address] Care Team Providers Care Fireman Helper Name Role Phone Darcie Escalante MD Primary Care Pro vider Encounter Details Date Type Department Care Team ([facility] st Contact Info) Description 11/15/2024 Telephone [employer] [address] [place], [place] [phone] Mitra Chadwick MD [address] [place], [place] [phone] Social History Tobacco Use Types Packs/Day Years [...] encounter Miscellaneous Notes * Telephone Encounter - Maria Ines Palmer RN - 11/19/2024 4:09 PM EST TC placed to pt regarding message below per Dr. Cahdwick. Pt reports much better at this time; no s/s reported. Pt declines to be seen for MRI to be re- ordered. Pt advised to call [facility] with any changes, concerns or if would like to be re-evaluated. Pt verbalized understanding and declines visit at this time. Pt to F/U as needed. Re MRI of LE below, it was ordered on 11/2023, patient needs to be seen again to see if she still needs it. Please call to triage patient re leg pain (note on 11/2023) and schedule an appt with a team provider for further evaluation if needed. * Telephone Encounter - Mitra Chadwick MD - 11/15/2024 4:25 PM EST Re MRI of LE below, it was ordered on 11/2023, patient needs to be seen again to see if she still needs it. Please call to triage patient re leg pain (note on 11/2023) and schedule an appt with a team provider for further evaluation if needed. * Telephone Encounter - Fiordaliza Pedraza - 11/15/2024 9:50 AM EST [employer] call call from Kathy at [facility] requesting MRI Lower extremity order to be update to MRI Lower Extremity WWO Contrast Left . Please advise . documented in this encounter Plan of Treatment Upcoming Encounters Date Type Department Care Team (Late st Contact Info) Description 01/23/2025 10:00 AM EDT Office Visit [facility] MEDICINE [address] [place] [address] Darcie Escalante MD [address] [place] [address] documented as of this encounter Visit Diagnoses Not on filedocumented in this encounter Additional Health Concerns Assessment Noted Time PHQ-9 Depression Total Score: 9 06/19/20 24 10:11 AM EDT documented as of this encounter Care Teams Fireman Helper Relationship Specialty Start Date End Date Darcie Escalante MD [address] [place] [address] PCP - General Internal Medicine 03/17/23 documented as of this encounter
== END | disposition home or self-care (01) ==
LOC: HO.NEURO 14:37
PROVIDERS: PCP Student in an Organized Health Care Education/Training Program; Visit Provider Student in an Organized Health Care Education/Training Program
DX: G56.03 Carpal tunnel syndrome, bilateral upper limbs (principal)

== ENCOUNTER → 2024-11-29 14:41 | Outpatient (BNV) | payer MEDICAID, SELFPAY | PROVIDERS: PCP Student in an Organized Health Care Education/Training Program; Visit Provider Physical Medicine & Rehabilitation | DX: R20.0 Anesthesia of skin (principal); R20.2 Paresthesia of skin | CPT/HCPCS: 95886; 95911 ==

== ENCOUNTER → 2024-11-30 10:09 | Outpatient (AMB) | payer MEDICAID, SELFPAY | END | disposition home or self-care (01) | PROVIDERS: PCP Student in an Organized Health Care Education/Training Program; Visit Provider Student in an Organized Health Care Education/Training Program | CPT/HCPCS: 99214 ==

== ENCOUNTER → 2024-11-30 10:09 | Outpatient (BNVA) | payer MEDICAID, SELFPAY | PROVIDERS: PCP Student in an Organized Health Care Education/Training Program; Visit Provider Student in an Organized Health Care Education/Training Program | DX: L93.1 Subacute cutaneous lupus erythematosus (principal); M25.562 Pain in left knee; M25.561 Pain in right knee; G89.29 Other chronic pain; G56.03 Carpal tunnel syndrome, bilateral upper limbs; Z51.81 Encounter for therapeutic drug level monitoring; Z79.620 Long term (current) use of immunosuppressive biologic; Z79.899 Other long term (current) drug therapy | CPT/HCPCS: 99212 ==

== ENCOUNTER 2024-12-03 08:32 | Outpatient (REF) | payer MEDICAID, SELFPAY ==
--- OUTSIDE RECORDS SUMMARY | 2024-12-03 08:44 | XMS_ITS | Encounter Summary ---
Author Organization [facility] Address [address] [place] [address] [place] [address] Care Team Providers Care Replacer Name Role Phone Darcie Escalante MD Primary Care Pro vider Encounter Details Date Type Department Care Team (Latest Contact Info) Description 08/28/2019 Abstract [facility] CONVERSIONS Dental, Provider, DDS Social History Tobacco [...] Description 01/23/2025 10:00 AM EDT Office Visit [facility] MEDICINE [address] [place] [address] Darcie Escalante MD [address] [place] [address] documented as of this encounter Visit Diagnoses Not on filedocumented in this encounter Care Teams Replacer Relationship Specialty Start Date End Date Darcie Escalante MD [address] [place] [address] PCP - General Internal Medicine 03/17/23 documented as of this encounter
--- OUTSIDE RECORDS SUMMARY | 2024-12-03 08:44 | XMS_ITS | Encounter Summary ---
Author Organization [employer] [facility] Address [address] [place] [address] [address] [address] Care Team Providers Care Regional Coordinator Name Role Phone Darcie Escalante MD Primary Care Pro vider Encounter Details Date Type Department Care Team (Latest Contact Info) Description 01/15/2021 Abstract [facility] CONVERSIONS Dental, Provider, DDS Social History [...] Description 01/23/2025 10:00 AM EDT Office Visit [facility] MEDICINE [address] [place] [address] Darcie Escalante MD [address] [place] [address] documented as of this encounter Visit Diagnoses Not on filedocumented in this encounter Care Teams Regional Coordinator Relationship Specialty Start Date End Date Darcie Escalante MD [address] [place] [address] PCP - General Internal Medicine 03/17/23 documented as of this encounter
--- OUTSIDE RECORDS SUMMARY | 2024-12-03 08:44 | XMS_ITS | Encounter Summary ---
Author Organization [employer] Address [address] [place] [address] 7 [place] [address] Care Team Providers Care Supervisor Fleshing Name Role Phone Darcie Escalante MD Primary Care Pro vider Reason for Visit * Reason Onset Date Comments Med Refill 10/04/2023 Encounter Details Date Type Department Care Team ([facility] st Contact Info) Description 10/04/2023 Refill [facility] MEDICINE [address] [place], [place] [phone] Darcie Escalante MD [address] [place] [address] Social History Tobacco Use Types Packs/Day Years [...] your housing situation today? I have allyson ivcki 08/19/[address] you li [...] 10:00 AM EDT Office Visit [facility] MEDICINE [address] [place] [address] Darcie Escalante MD [address] [place] [address] documented as of this encounter Visit Diagnoses Not on filedocumented in this encounter Additional Health Concerns Assessment Noted Time PHQ-9 Depression Total Score: 8 04/06/20 23 10:44 AM EDT documented as of this encounter Care Teams Supervisor Fleshing Relationship Specialty Start Date End Date Darcie Escalante MD [address] [place] [phone] PCP - General Internal Medicine 03/17/23 documented as of this encounter
--- OUTSIDE RECORDS SUMMARY | 2024-12-03 08:45 | XMS_ITS | Encounter Summary ---
Author Organization [employer] Address [address] [place] [address] 7t [place] [address] Care Team Providers Care Learning And Development Director Name Role Phone Darcie Escalante MD Primary Care Pro vider Encounter Details Date Type Department Care Team ([facility] st Contact Info) Description 11/23/2024 [address]phone [employer] Information Management 230 [place], [place] [phone] Mitra Chadwick MD 230 [place], [place] [phone] Social History Tobacco Use Types Packs/Day Years [...] needs to be corrected. Fiordaliza Chavez from [facility] [place] following up [place] no shows and [...] EST Incoming call call from Kathy at [facility] [place] MRI Lower extremity order to be update to MRI Lower Extremity WWO Contrast Left, appt is Tuesday11/25/24. Please advise . documented in this encounter Plan of Treatment Upcoming Encounters Date Type Department Care Team (Late st Contact Info) Description 01/23/2025 10:00 AM EDT Office Visit [facility] MEDICINE [address] [place] [address] Darcie Escalante MD [address] [place] [phone] documented as of this encounter Visit Diagnoses Not on filedocumented in this encounter Additional Health Concerns Assessment Noted Time PHQ-9 Depression Total Score: 9 06/19/20 24 10:11 AM EDT documented as of this encounter Care Teams Learning And Development Director Relationship Specialty Start Date End Date Darcie Escalante MD [address] [place] [address] [phone] PCP - General Internal Medicine 03/17/23 documented as of this encounter
--- OUTSIDE RECORDS SUMMARY | 2024-12-03 08:45 | XMS_ITS | Clinical Summary ---
Author Organization [facility] ity Address [address] [place] [address] Care Team Providers Care Entry Writer Name Role Phone Juana Kim MD Primary Care Prov ider Allergies No known active allergies Medications rosuvastatin (CRESTOR) 5 mg tablet Take 1 [...] 02/08/2022 Overview (10/11/2024): Patient attached results to [employer] message. Fatty liver disease, nonalcoholic 10/28/2020 Transaminitis [...] drink = 0.6 oz pur e alcohol) Comments Unknown Sex and Gender Information Value Date Recorded Sex Assigned at Not on file Legal Sex Female 1:56 PM EST Gender Identity Not on file Sexual Orientation [...] EDT Office Visit [facility] [place] [address] [place] [phone] Caitie Reyes, [facility] [address] [place] [address] Health Maintenance Due Date Last Done Comments Hepatitis B Vaccines (1 of 3 - 19+ 3-dose series) 2006 Pneumococcal Vaccine: Pediatrics (0 to 5 Years) and At-Risk Patients (6 to 64 Years) (1 of 2 - PCV) 2006 DTaP,Tdap,and Td Vaccines (2 - Td or Tdap) 07/31/2018 07/03/2018 Social Influencers of Health Screening 10/02/2022 Depression Screening 04/06/2024 04/06/2023 COVID-19 Vaccine ( season) 2024 09/02/2021, 12/19/2020, 11/27/2020 Influenza Vaccine (#1) 2024 , 07/21/2021, 10/29/2020, Additional history exists Cholesterol Screening (Lipid Panel) 05/03/2027 05/03/2022 Cervical Cancer Screening: HPV 11/24/2027 11/24/2022 HIV Screening Completed 11/15/2022 Hepatitis C Screening [...] patient's age to complete this topic Meningococcal B Vacine Aged Out No lo nger eligible based on patient's age to complete [...] Results * Cervical Cancer Screening: HPV (11/24/2022) Pathologist [facility] Cervical Cancer Screening: HPV abstracted, negative [facility] Provider HEALTH MAINTENANCE Final Result * HIV Screening (11/15/2022) [facility] HIV Screening abstracted [facility] Provider HEALTH MAINTENANCE Final Result * Hepatitis C Screening (11/15/2022) Pathologist [facility] Hepatitis C Screening abstracted [facility] Provider HEALTH MAINTENANCE Final Result * (ABNORMAL) Lipid panel (05/03/2022) [facility] LDL/HDL Ratio 7(A) 0 - 4 Triglycerides 247(A) 0 - 150 mg/dL Cholesterol 234(A) 0 - 200 mg/dL HDL 36(A) >=40 mg/dL LDL Cholesterol 149(A) 0 - 100 mg/dL Blood Venous blood specimen / Unknown Result [facility] Provider LAB BLOOD ORDERABLES Jennifer l Result from Last 3 Months or Most Recently Relevant to Health Maintenance Care Teams Entry Writer Relationship Specialty Start Date End Date Juana Kim MD PCP - General Internal Medicine 05/24/22
--- OUTSIDE RECORDS SUMMARY | 2024-12-03 08:45 | XMS_ITS | Encounter Summary ---
Author Organization [employer] Address [address] [place] [address] 7 [place] [address] Care Team Providers Care Ordnance Truck Installation Supervisor Name Role Phone Darcie Escalante MD Primary Care Pro vider Reason for Visit * Reason Onset Date Comments Med Refill 02/07/2024 Encounter Details Date Type Department Care Team ([facility] st Contact Info) Description 02/07/[address] [facility] MEDICINE [address] [place], [place] [phone] Darcie Escalante MD 230 [place] [address] Social History Tobacco Use Types Packs/Day Years [...] Description 01/23/2025 10:00 AM EDT Office Visit [facility] MEDICINE [address] [place] [address] Darcie Escalante MD [address] [place] [address] documented as of this encounter Visit Diagnoses Not on filedocumented in this encounter Additional Health Concerns Assessment Noted Time PHQ-9 Depression Total Score: 8 04/06/20 23 10:44 AM EDT documented as of this encounter Care Teams Ordnance Truck Installation Supervisor Relationship Specialty Start Date End Date Darcie Escalante MD [address] [place] [phone] PCP - General Internal Medicine 03/17/23 documented as of this encounter
--- OUTSIDE RECORDS SUMMARY | 2024-12-03 08:45 | XMS_ITS | Encounter Summary ---
Author Organization [employer] Address [address] [place] [address] 7t [place] [address] Care Team Providers Care Wood Experimental Mechanic Name Role Phone Darcie Escalante MD Primary Care Pro vider Encounter Details Date Type Department Care Team ([facility] st Contact Info) Description 11/15/2024 Telephone [employer] Information Management 230 [place], [place] [phone] Mitra Chadwick MD 230 [place], [place] [phone] Social History Tobacco Use Types Packs/Day Years [...] to pt regarding message below per Dr. Chadwick. Pt reports much better at this time; no s/s reported. Pt declines to be seen for MRI to be re- ordered. Pt advised to call [facility] with any changes, concerns or if would [...] EST Incomong call call from Kathy at [facility] requesting MRI Lower extremity order to be update to MRI Lower Extremity WWO Contrast Left . Please advise . documented in this encounter Plan of Treatment Upcoming Encounters Date Type Department Care Team (Late st Contact Info) Description 01/23/2025 10:00 AM EDT Office Visit [facility] MEDICINE [address] [place] [address] Darcie Escalante MD [address] [place] [phone] documented as of this encounter Visit Diagnoses Not on filedocumented in this encounter Additional Health Concerns Assessment Noted Time PHQ-9 Depression Total Score: 9 06/19/20 24 10:11 AM EDT documented as of this encounter Care Teams Wood Experimental Mechanic Relationship Specialty Start Date End Date Darcie Escalante MD [address] [place] [phone] PCP - General Internal Medicine 03/17/23 documented as of this encounter
--- OUTSIDE RECORDS SUMMARY | 2024-12-03 08:45 | XMS_ITS | Encounter Summary ---
Author Organization [employer] Address [address] [place] [address] 7 [place] [address] Care Team Providers Care Mold Bunch Trimmer Name Role Phone Darcie Escalante MD Primary Care Pro vider Reason for Visit * Reason Comments Med Refill Encounter Details Date Type Department Care Team ([facility] st Contact Info) Description 07/05/[address] [facility] MEDICINE [address] [place] [address] Darcie Escalante MD [address] [place] [address] Social History Tobacco Use Types Packs/Day Years [...] Description 01/23/2025 10:00 AM EDT Office Visit [facility] MEDICINE [address] [place] [address] Darcie Escalante MD [address] [place] [address] documented as of this encounter Visit Diagnoses Not on filedocumented in this encounter Additional Health Concerns Assessment Noted Time PHQ-9 Depression Total Score: 9 06/19/20 24 10:11 AM EDT documented as of this encounter Care Teams Mold Bunch Trimmer Relationship Specialty Start Date End Date Darcie Escalante MD [address] [place] [phone] PCP - General Internal Medicine 03/17/23 documented as of this encounter
--- OUTSIDE RECORDS SUMMARY | 2024-12-03 08:45 | XMS_ITS | Encounter Summary ---
Author Organization [employer] Address [address] [facility] 7t [place] [address] Care Team Providers Care Operations/Dispatch Name Role Phone Darcie Escalante MD Primary Care Pro vider Reason for Visit * Reason Comments Med Refill Encounter Details Date Type Department Care Team ([facility] [place] st Contact Info) Description 11/28/2024 Refill [facility] MEDICINE [address] [place], [place] [phone] Gladis Mcmullen, ANP 230 [place], [place] [phone] Obesity (BMI 30.0-34.9) Social History Tobacco Use [...] AM EDT Office Visit [facility] MEDICINE [address] [place] [address] Darcie Escalante MD [address] [place] [address] documented as of this encounter Visit Diagnoses Diagnosis Obesity (BMI 30.0-34.9) documented in this encounter Additional Health Concerns Assessment Noted Time PHQ-9 Depression Total Score: 9 06/19/20 24 10:11 AM EDT documented as of this encounter Care Teams Operations/Dispatch Relationship Specialty Start Date End Date Darcie Escalante MD [address] [place] [phone] PCP - General Internal Medicine 03/17/23 documented as of this encounter
--- OUTSIDE RECORDS SUMMARY | 2024-12-03 08:45 | XMS_ITS | Encounter Summary ---
Author Organization [employer] Address [address] [facility] 7t [place] [address] Care Team Providers Care General Ledger Bookkeeper Name Role Phone Darcie Escalante MD Primary Care Pro vider Encounter Details Date Type Department Care Team ([facility] st Contact Info) Description 11/12/2024 Orders Only [facility] External Provider, [facility] Social History Tobacco Use Types Packs/Day Years [...] Upcoming Encounters Date Type Department Care Team ([facility] st Contact Info) Description 01/23/2025 10:00 AM EDT Office Visit [facility] MEDICINE [address] [place] [address] Darcie Escalante MD [address] [place] [address] documented as of this encounter Procedures Procedure Name Priority Date/Time Associated Diagnosis Comments XR KNEE 4+ VIEWS RIGHT Routine 11/12/2024 10:46 AM EST XR KNEE 4+ VIEWS LEFT Routine 11/12/2024 10:46 AM EST documented in this encounter Results * XR Knee 4+ Views Right (11/12/2024 10:46 AM EST) Anatomical Region Laterality Modality Lower Extremities, Knee Right [facility] Imaging 11/12/2024 10:4 6 AM EST Narrative 11/12/2024 1:07 PM EST ? [facility] ?[address] ?[place] [address] ?XRay Report ? Signed ? Patient: Colon Styles,Aleta ?MR#: [id number] ?? 41 ? : 1985 ?Acct:[id number] ? Age/Sex: 39 / F ?ADM Date: 01/20/25 ? Loc: HO.XRAY ? Attending Dr: Clare Aguillon MD ? Ordering Physician: Clare Aguillon MD ?? Date of Service: 11/12/24 ?? Procedure(s): XR knee RT 4V ?? Accession Number(s): [id number] ? cc: Clare Aguillon MD; Darcie Escalante [...] DD/ 1046 ? TD/TT: 11/12/24 1108 ? Usability Strategist: MSM ? Procedure Note [place], Image - 11/12/[address] [address] XRay Report Signed Patient: Marvin Baltazar#: [id number] 41 : 1985Acct:[id number] Age/Sex: 39 / FADM Date: 11/12/24 Loc: [facility] Attending Dr: Clare Aguillon MD Ordering Physician: Clare Aguillon MD Date of Service: 11/12/24 Procedure(s): XR knee RT 4V Accession Number(s): [id number] cc: Clare Aguillon MD; Darcie Escalante MD [...] 11/12/24 1304 DD/ 1046 TD/TT: 11/12/24 1108 Usability Strategist: YULY [facility] External Provider IMG XR PROCEDURES Final Result * XR Knee 4+ Views Left (11/12/2024 10:46 AM EST) Anatomical Region Laterality Modality Lower Extremities, Knee Left [facility] 11/12/2024 10:4 6 AM EST Narrative 11/12/2024 1:05 PM EST ? [facility] ?[address] ?[place] [address] ?XRay Report ? Signed ? Patient: Colon Styles,Aleta ?MR#: [id number] ?? 41 ? : 1985 ?Acct:[id number] ? Age/Sex: 39 / F ?ADM Date: 11/12/24 ? Loc: HO.XRAY ? Attending Dr: Clare Aguillon MD ? Ordering Physician: Clare Aguillon MD ?? Date of Service: 11/12/24 ?? Procedure(s): XR knee LT 4V ?? Accession Number(s): [id number] ? cc: Clare Aguillon MD; Darcie Escalante [...] DD/ 1046 ? TD/TT: 11/12/24 1108 ? Usability Strategist: MSM ? Procedure Note Don[place], Image - 11/12/[address] [address] XRay Report Signed Patient: Marvin Baltazar#: [id number] 41 : 1985Acct:[id number] Age/Sex: 39 / FADM Date: 11/12/24 Loc: [facility] Attending Dr: Clare Aguillon MD Ordering Physician: Clare Aguillon MD Date of Service: 11/12/24 Procedure(s): XR knee LT 4V Accession Number(s): [id number] cc: Clare Aguillon MD; Darcie Escalante MD [...] 11/12/24 1303 DD/ 1046 TD/TT: 11/12/24 1108 Usability Strategist: MSM [facility] External Provider IMG XR PROCEDURES Final Result documented in this encounter Visit Diagnoses Not on filedocumented in this encounter Additional Health Concerns Assessment Noted Time PHQ-9 Depression Total Score: 9 06/19/20 24 10:11 AM EDT documented as of this encounter Care Teams General Ledger Bookkeeper Relationship Specialty Start Date End Date Darcie Escalante MD [address] [place] [phone] PCP - General Internal Medicine 03/17/23 documented as of this encounter
--- OUTSIDE RECORDS SUMMARY | 2024-12-03 08:46 | XMS_ITS | Clinical Summary ---
Author Organization [employer] Address [address] [facility] 7t [place] [address] Care Team Providers Care Rn Pain Management Name Role Phone Darcie Escalante MD Primary [...] each 06/24/20 23 Active Blood Pressure Monitor kitIndications:E levated blood pressure reading 1 kit in the [...] DAYS 07/25/20 24 Active lisinopril 10 MG tabletIndication s:Elevated blood pressure reading TAKE 1 TABLET BY [...] USE as symptoms improve 10/15/20 24 Active hydroxychloroqui ne (Plaquenil) 200 MG tablet Take 1 tablet by mouth 2 times daily. 08/29/20 24 Active Tirzepatide-Weig ht Management (Zepbound) 7.5 MG/0.5ML solution auto-injectorInd ications:Obesity (BMI 30.0-34.9) Inject 0.5 mL (7.5 mg) under the skin 1 (one) time per week. 2 mL 11/28/19 25 Active Tirzepatide-Weig ht Management (Zepbound) 5 MG/0.5ML solution auto-injectorInd ications:Obesity (BMI 30.0-34.9) Inject 0.5 mL (5 mg) [...] smear : 2021 neg per pt at [facility] --no able to obtain previous record -contraception: [...] smear : 2021 neg per pt at [facility] -- ---- requested record to Kaila today [...] schedule her for Patch testing with the Vp Strategic Planning ?? Continue Elidel cream, twice daily ?? Begin Heliocare 1 cap every morning and CeraVe Mineral Sunscreen spf 50 every morning ?? Reinforce gentle cleansers and moisturizers ?? Return to clinic in one-week for re-evaluation. Assessment & Plan (06/26/2023 10:30 AM EDT): Pt w facial rash from record had skin bx w prior food beverage supervisor told to be negative x concerning autoimmune dx Possible allergic contact dermatitis from derm's note 05/2023 ESR 23 ( Elevated) , CRP wnl,total protein mild elev at 8.5, LEN neg,RF neg . -here f w food beverage supervisor on pimecrolimus 1% BID and minocycline 100 mg BID x 14 days -close to complete tx -continue care w food beverage supervisor -next apt 07/08/2023 -may need to consider to hold statins as it can be associated w eczema discuss w pt at next apt if rash still present -referred to market president by derm pd to get apt Assessment & Plan (04/06/2023 11:28 AM EDT): Pt w facial rash from record had skin bx w prior food beverage supervisor told to be negative x concerning autoimmune dx Possible allergic contact dermatitis from derm's note -here f w food beverage supervisor started on tacrolimus topical w improvement and to keep topical steroids -to f w derm in 6 weeks -referred to market president by derm pd to get apt -pt reports on and [...] Type Department Care Team Description 11/28/2024 Refill [facility] [address] [place] [address] Gladis Mcmullen ANP Obesity (BMI 30.0-34.9) 11/23/2024 Telephone [facility] Information Management [address] [place] [address] Len Chadwick MD 11/15/2024 Telephone [facility] Information Management [address] [place] [phone] Len Chadwick MD 11/12/2024 Orders Only [facility] External Provider, [facility] 11/02/2024 9:00 AM EST Office Visit [facility] [address] [place] [phone] Gladis Mcmullen ANP Obesity (BMI 30.0-34.9) (Primary Dx); Hyperlipidemia, unspecified hyperlipidemia type; Primary hypertension; Screening for cervical cancer 11/02/2024 Travel 10/17/2024 Refill [facility] [address] [place] [address] Darcie Escalante MD 09/11/[address] [address] Lizbeth Brown MA PA for Zepbound 2.5mg; PA approval 09/04/2024 Orders Only [facility] [address] [place] [address] [phone] Darcie Escalante MD 09/04/[address] [phone] Zaira Najera RN Medication Question from Last 3 Months Immunizations Name Administration [...] Description 01/23/2025 10:00 AM EDT Office Visit [facility] [address] [place] [phone] Darcie Escalante MD [address] [place] [address] Health Maintenance Due Date Last Done Comments [...] Tdap) 07/03/2028 07/03/2018 Lipid Panel 08/07/2029 08/07/2024, /2 11/2023, 06/06/2023 Zoster Vaccines (1 of 2) 2037 [...] Region Laterality Modality Lower Extremities, Knee Right Radiogra phic Imaging 11/12/2024 10:4 6 AM EST Narrative 11/12/2024 1:07 PM EST ? [facility] ?[address] ?[place] [address] ?XRay Report ? Signed ? Patient: Colon Stylse,Aleta ?MR#: [id number] ?? 41 ? : 1985 ?Acct:[id number] ? Age/Sex: 39 / F ?ADM Date: 11/12/24 ? Loc: HO.XRAY ? Attending Dr: Clare Aguillon MD ? Ordering Physician: Clare Aguillon MD ?? Date of Service: 11/12/24 ?? Procedure(s): XR knee RT 4V ?? Accession Number(s): [id number] ? cc: Clare Aguillon MD; Darcie Escalante [...] process seen. ? Electronically signed by: ??Morales Lesli MD ??11/12/2024 01:04 PM EST RP ? Dictated By: ?Lesli,Morales S MD ? Signed By: ?<Electronically signed by Morales S Lesli, MD in OV> ?11/12/24 1304 ? DD/ 1046 ? TD/TT: 11/12/24 1108 ? Professional Services Specialist: MSM ? Procedure Note Rachael Image - 11/12/[address] [address] XRay Report Signed Patient: Marvin Baltazar#: [id number] 41 : 1985Acct:[id number] Age/Sex: 39 / FADM Date: 11/12/24 Loc: HO.XRAY Attending Dr: Clare Aguillon MD Ordering Physician: Clare Aguillon MD Date of Service: 11/12/24 Procedure(s): XR knee RT 4V Accession Number(s): [id number] cc: Clare Aguillon MD; Darcie Escalante MD [...] Morales Ballesteros MD 11/12/2024 01:04 PM EST Dictated By: Morales Ballesteros MD Signed By: <Electronically signed by Morales Ballesteros MD in OV> 11/12/24 1304 DD/ 1046 TD/TT: 11/12/24 1108 Professional Services Specialist: YULY us [facility] External Provider IMG XR PROCEDURES Final Result * XR Knee 4+ Views Left (11/12/2024 10:46 AM EST) Anatomical Region Laterality Modality Lower Extremities, Knee Left Radiogra phic Imaging 11/12/2024 10:4 6 AM EST Narrative 11/12/2024 1:05 PM EST ? [place] [facility] ?[address] ?[place] [address] ?XRay Report ? Signed ? Patient: Colon Styles,Aleta ?MR#: [id number] ?? 41 ? : 1985 ?Acct:[id number] ? Age/Sex: 39 / F ?ADM Date: 11/12/24 ? Loc: HO.XRAY ? Attending Dr: Clare Aguillon MD ? Ordering Physician: Clare Aguillon MD ?? Date of Service: 11/12/24 ?? Procedure(s): XR knee LT 4V ?? Accession Number(s): [id number] ? cc: Clare Aguillon MD; Darcie Escalante [...] DD/ 1046 ? TD/TT: 11/12/24 1108 ? Professional Services Specialist: MSM ? Procedure Note Rachael, Dexter - 11/12/[address] [address] XRay Report Signed Patient: Marvin Baltazar#: [id number] 41 : 1985Acct:[id number] Age/Sex: 39 / FADM Date: 11/12/24 Loc: [facility] Attending Dr: Clare Aguillon MD Ordering Physician: Clare Aguillon MD Date of Service: 11/12/24 Procedure(s): XR knee LT 4V Accession Number(s): [id number] cc: Clare Aguillon MD; Darcie Escalante MD [...] 11/12/24 1303 DD/ 1046 TD/TT: 11/12/24 1108 Professional Services Specialist: YULY [facility] External Provider IMG XR PROCEDURES Final Result * Hepatitis C Antibody with Reflex to HCV, RNA, Quantitative, Real-Time PCR (08/07/2024 8:40 AM EDT) Hepatitis C Antibody Nonreactive Nonreactive [facility] Comment:Antibodies to HCV no t detected; does not exclude early acuteHCV infection. Blood Venous blood specimen / Unknown 08/07/2024 8:40 AM EDT 08/07/2024 11:11 AM EDT Darcie Joel MD LAB BLOOD ORDERAB LES Final Result [facility] [address] [place] [phone] * HIV-1/2 Antigen and Antibodies, Fourth Generation, with Reflexes (08/07/2024 8:40 AM EDT) HIV AB/AG Nonreactive Nonreactive [facility] Comment:HIV-1 p24 Ag and/or HIV-1/HIV-2 Ab not detected.A test result that is nonreactive does not exclude thepossibility of exposure to or infection with HIV-1 and/orHIV-2. Nonreactive results in this assay for individualswith prior exposure to HIV-1 and/or HIV-2 may be due toantigen and antibody levels that are below the limit ofdetection of this assay.The Pin[employer] HIV Ag/Ab Combo assay result andsupplemental assay results should be interpreted inconjunction with the patient's clinical presentation,history and other laboratory results. If the results areinconsistent with clinical evidence, additional testing issuggested to confirm the result. Blood Venous blood specimen / Unknown 08/07/2024 8:40 AM EDT 08/07/2024 11:11 AM EDT us Darcie Joel MD LAB BLOOD ORDERAB LES Final Result [facility] [address] [place] [phone] [phone] * (ABNORMAL) Lipid Panel, Standard (08/07/2024 8:40 AM EDT) Triglycerides 198(H) <150 mg/dL [facility] Comment:Desirable Triglyceri de: less than 150 mg/dLBorderline High Triglyceride 150-199 mg/dLHigh Triglyceride: 200-499 mg/dLVery High Triglyceride: greater than or equal to 5OO mg/dL Cholesterol 179 <200 mg/dL [facility] Comment:Desirable Cholestero l: less than 200 mg/dLBorderline High Cholesterol: 200-239 mg/dLHigh Cholesterol: greater than 239 mg/dL LDL Cholesterol Calculated 96 <100 mg/dL [facility] Comment:Desirable LDL: less than 100 mg/dLNear Optimal/Above Optimal LDL: 110- 129 mg/dLBorderline High LDL: 130-159 mg/dLHigh LDL: 160-189 mg/dLVery High LDL: greater than or equal to 190 mg/dL HDL Cholesterol 44 >40 mg/dL [facility] Comment:Desirable HDL: great er than 40 mg/dL Note: This HDL assay may give artificially low results in patients with liver disease. Blood Venous blood specimen / Unknown 08/07/2024 8:40 AM EDT 08/07/2024 11:11 AM EDT Darcie Joel MD LAB BLOOD ORDERAB LES Final Result [facility] [address] [place] [address] [phone] from Last 3 Months or Most Recently Relevant to Health Maintenance Insurance [facility] Care Teams Rn Pain Management Relationship Specialty Start Date End Date Darcie Escalante MD [address] [place] [address] PCP - General Internal Medicine 03/17/23
[2024-12-03 09:08] LABS: MANUAL DIFF FLAG NO
[2024-12-03 09:40] LABS: Basophils Percent Auto 0.6 % (0-2); Eosinophils Absolute Auto 0.2 X10*3/uL (0.0-0.4); Hematocrit 37.3 % (37.0-47.0); Hemoglobin 12.2 g/dl (12.0-16.0); Imm Gran Abs Auto 0.06 X10*3/uL (0.00-0.03); Imm Gran Pct Auto 0.9 % (0.0-0.4); Lymphocytes Absolute Auto 1.7 X10*3/uL (1.2-4.9); Lymphocytes Percent Auto 26.6 % (20-40); Mean Corpuscular HGB Conc 32.7 g/dl (31.0-35.0); Mean Corpuscular Hemoglobin 26.9 pg (27.0-33.0); Mean Corpuscular Volume 82.2 fL (80.0-98.0); Mean Platelet Volume 11.9 fL (9.4-12.3); Monocytes Absolute Auto 0.3 X10*3/uL (0.1-1.2); Neutrophils Absolute Auto 4.1 x10*3/uL (2.0-8.3); Neutrophils Percent Auto 63.9 % (45-73); Platelet Count 186 X10*3/uL (160-400); Red Blood Count 4.54 X10*6/uL (4.20-5.50); Red Cell Distribution Width 12.8 % (11.0-16.0); White Blood Count 6.4 X10*3/uL (4.8-10.8)
[2024-12-03 09:58] LABS: Appearance Urine Turbid; Color Urine Yellow; Glucose Urine UA Negative (Negative); Leukocyte Esterase Urine Negative (Negative); Nitrite Urine Negative (Negative); Specific Gravity - Urine >= 1.030 (1.005-1.025); UMIC TRIGGER UA YES; Urine Blood Moderate (2+) (Negative); Urine Ketones Trace mg/dL (Negative); Urine Protein 30 (1+) mg/dL (Neg-Trace)
[2024-12-03 10:12] LABS: Creatinine Urine 307.55 mg/dL; Protein/Creatinine Ratio, Ur 0.07 (<0.2); Total Protein Urine Random 23 mg/dL (<12)
[2024-12-03 10:13] LABS: Alanine Aminotransferase 16 U/L (0-31); Albumin Level 4.3 g/dL (3.5-5.0); Alkaline Phosphatase 58 U/L (39-117); Anion Gap 10 (12-20); Aspartate Amino Transferase 14 U/L (5-31); Bilirubin Total 0.5 mg/dL (0.0-1.0); Blood Urea Nitrogen 19 mg/dL (9-16); C Reactive Protein 0.12 mg/dL (< or = 0.50); Calcium 8.9 mg/dL (8.4-10.2); Carbon Dioxide 23 mmol/L (22-29); Chloride 110 mmol/L (96-108); Estimated Glomerular Filt Rate > 60; Glucose Random 87 mg/dL (60-115); Potassium 3.7 mmol/L (3.3-5.1); Sodium 139 mmol/L (135-145); Total Protein 8.3 g/dL (6.5-8.0)
[2024-12-03 10:16] LABS: Bacteria Urine Trace (None Seen); Hyaline Casts Urine 0-2 /LPF (0-2); RBC Urine 0-2 /HPF (0-2); Squamous Epithelial Cell Urine >20 /HPF (0-2); WBC Urine 0-5 /HPF (0-5)
[2024-12-03 10:24] LABS: Erythrocyte Sedimentation Rate 16 MM/HR (0-20)
[2024-12-04 18:02] LABS: Anti DNA DS Antibody <1 IU/mL
[2024-12-06 05:29] LABS: Complement C3 178 mg/dL (83-193)
== END 2024-12-03 08:33 | disposition home or self-care (01) ==
LOC: HO.HHCL 08:32
PROVIDERS: Visit Provider Student in an Organized Health Care Education/Training Program
DX: L93.1 Subacute cutaneous lupus erythematosus (principal)
CPT/HCPCS: 36415; 80053; 81001; 82570; 84156; 85025; 85652; 86140; 86160; 86225

== ENCOUNTER 2025-02-21 09:38 | Outpatient (REF) | payer MEDICAID, SELFPAY ==
[2025-02-21 09:57] LABS: MANUAL DIFF FLAG NO
[2025-02-21 10:36] LABS: Basophils Percent Auto 0.6 % (0-2); Eosinophils Absolute Auto 0.2 X10*3/uL (0.0-0.4); Eosinophils Percent Auto 2.6 % (0-4); Hematocrit 35.4 % (37.0-47.0); Hemoglobin 11.8 g/dl (12.0-16.0); Imm Gran Abs Auto 0.01 X10*3/uL (0.00-0.03); Imm Gran Pct Auto 0.2 % (0.0-0.4); Lymphocytes Absolute Auto 1.9 X10*3/uL (1.2-4.9); Lymphocytes Percent Auto 29.4 % (20-40); Mean Corpuscular HGB Conc 33.3 g/dl (31.0-35.0); Mean Corpuscular Hemoglobin 27.4 pg (27.0-33.0); Mean Corpuscular Volume 82.3 fL (80.0-98.0); Mean Platelet Volume 11.8 fL (9.4-12.3); Monocytes Absolute Auto 0.3 X10*3/uL (0.1-1.2); Monocytes Percent Auto 5.3 % (2-11); Neutrophils Percent Auto 61.9 % (45-73); Platelet Count 188 X10*3/uL (160-400); Red Cell Distribution Width 13.5 % (11.0-16.0); White Blood Count 6.5 X10*3/uL (4.8-10.8)
--- OUTSIDE RECORDS SUMMARY | 2025-02-21 10:40 | XMS_ITS | Encounter Summary ---
Author Organization [employer] Address [address] [place] [address] [address] [place] [address] Care Team Providers Care Capacitor Pack Press Operator Name Role Phone Darcie Escalante MD Primary Care Pro vider Reason for Visit * Reason Onset Date Comments Med Refill 10/04/2023 Encounter Details Date Type Department Care Team ([facility] st Contact Info) Description 10/04/2023 Refill [facility] [address] [place], [place] [phone] Darcie Escalante MD [address] [place] [address] Social History Tobacco Use Types Packs/Day Years [...] as of this encounter Plan of Treatment Not on file documented as of this encounter Visit Diagnoses Not on filedocumented in this encounter Additional Health Concerns Assessment Noted Time PHQ-9 Depression Total Score: 8 04/06/20 10:44 AM EDT documented as of this encounter Care Teams Capacitor Pack Press Operator Relationship Specialty Start Date End Date Darcie Escalante MD [address] [place] [phone] PCP - General Internal Medicine 03/17/23 documented as of this encounter
--- OUTSIDE RECORDS SUMMARY | 2025-02-21 10:40 | XMS_ITS | Encounter Summary ---
Author Organization [employer] Address [address] [facility] [address] [place] [address] Care Team Providers Care Dietary Services Manager Name Role Phone Darcie Escalante MD Primary Care Pro vider Encounter Details Date Type Department Care Team ([facility] st Contact Info) Description 01/15/2025 Orders Only [facility] [address] [place], [place] [phone] Provider, MD Sindi Social History Tobacco Use Types Packs/Day Years [...] on file documented as of this encounter Procedures Procedure Name Priority Date/Time Associated Diagnosis Comments HM PAP/HPV Routine 11/15/2022 10:55 AM EST documented in this encounter Results * HM PAP/HPV (11/15/2022 10:55 AM EST) us Historical Provider HEALTH MAINTENANCE Final Result documented in this encounter Visit Diagnoses Not on filedocumented in this encounter Additional Health Concerns Assessment Noted Time PHQ-9 Depression Total Score: 9 06/19/20 24 10:11 AM EDT documented as of this encounter Care Teams Dietary Services Manager Relationship Specialty Start Date End Date Darcie Escalante MD [address] [place] [phone] PCP - General Internal Medicine 03/17/23 documented as of this encounter
--- OUTSIDE RECORDS SUMMARY | 2025-02-21 10:40 | XMS_ITS | Encounter Summary ---
Author Organization [employer] [facility] Address [address] [place] [phone] Care Team Providers Care Ethylene Plant Helper Name Role Phone Darcie Escalante MD Primary Care Pro vider Encounter Details Date Type Department Care Team (Latest Contact Info) Description 01/15/2021 Abstract [facility] CONVERSIONS Dental, Provider, DDS Social History [...] on filedocumented in this encounter Care Teams Ethylene Plant Helper Relationship Specialty Start Date End Date Darcie Escalante MD [address] [place] [phone] PCP - General Internal Medicine 03/17/23 documented as of this encounter
--- OUTSIDE RECORDS SUMMARY | 2025-02-21 10:40 | XMS_ITS | Clinical Summary ---
Author Organization [facility] ity Address [address] [place] [address] Care Team Providers Care Clinical Laboratory Aides Teacher Name Role Phone Juana Kim MD Primary [...] 02/08/2022 Overview (10/11/2024): Patient attached results to [employer] message. Fatty liver disease, nonalcoholic 10/28/2020 Transaminitis [...] EDT Office Visit Obstetrics and Gynecology - [place] [address] [place] [phone] Caitie Reyes, [facility] [address] [place] [address] Health Maintenance Due Date Last Done Comments Hepatitis B Vaccines (1 of 3 - 19+ 3-dose series) 2006 Pneumococcal Vaccine: Pediatrics (0 to 5 Years) and At-Risk Patients (6 to 64 Years) (1 of 2 - PCV) 2006 Social Influencers of Health Screening 10/02/2022 Depression Screening 04/06/2024 04/06/2023 COVID-19 Vaccine ( - season) 2024 09/02/2021, 12/19/2020, 11/27/2020 Influenza Vaccine (Season Ended) 2025 09/14/2022, 07/21/2021, 10/29/2020, Additional history exists Cholesterol Screening [...] age to complete this topic Meningococcal B Vaccine Aged Out No l onger eligible based on patient's age to complete [...] * Cervical Cancer Screening: HPV (11/24/2022) Pathologist [facility] Cervical Cancer Screening: HPV abstracted, negative [facility] Provider HEALTH MAINTENANCE Final Result * HIV Screening (11/15/2022) Pathologist [facility] HIV Screening abstracted [facility] Provider HEALTH MAINTENANCE Final Result * Hepatitis C Screening (11/15/2022) Pathologist [facility] Hepatitis C Screening abstracted [facility] Provider HEALTH MAINTENANCE Final Result * (ABNORMAL) Lipid panel (05/03/2022) [facility] LDL/HDL Ratio 7(A) 0 - 4 Triglycerides 247(A) 0 - 150 mg/dL Cholesterol 234(A) 0 - 200 mg/dL HDL 36(A) >=40 mg/dL LDL Cholesterol 149(A) 0 - 100 mg/dL Blood Venous blood specimen / Unknown [facility] Provider LAB BLOOD ORDERABLES Jennifer l Result from Last 3 Months or Most Recently Relevant to Health Maintenance Insurance MEDICAID - [place] Care Teams Clinical Laboratory Aides Teacher Relationship Specialty Start Date End Date Juana Kim MD [address] [place] [phone] PCP - General Internal Medicine 05/24/22
--- OUTSIDE RECORDS SUMMARY | 2025-02-21 10:40 | XMS_ITS | Encounter Summary ---
Author Organization [employer] Address [address] [place] [address] [address] [place] [address] Care Team Providers Care Flight Operations Inspector Name Role Phone Darcie Escalante MD Primary Care Pro vider Reason for Visit * Reason Onset Date Comments Med Refill 02/07/2024 Encounter Details Date Type Department Care Team ([facility] st Contact Info) Description 02/07/2024 Refill [facility] [address] [place], [place] [phone] Darcie Escalante MD [address] [place] [address] Social History Tobacco Use Types Packs/Day Years [...] documented as of this encounter Care Teams Flight Operations Inspector Relationship Specialty Start Date End Date Darcie Escalante MD [address] [place] [phone] PCP - General Internal Medicine 03/17/23 documented as of this encounter
--- OUTSIDE RECORDS SUMMARY | 2025-02-21 10:40 | XMS_ITS | Encounter Summary ---
Author Organization [employer] [facility] Address [address] [place] [address] [address] [address] Care Team Providers Care Human Services Manager Name Role Phone Darcie Escalante MD Primary Care Pro vider Encounter Details Date Type Department Care Team (Latest Contact Info) Description 08/28/2019 Abstract [facility] CONVERSIONS Dental, Provider, DDS Social History [...] on filedocumented in this encounter Care Teams Human Services Manager Relationship Specialty Start Date End Date Darcie Escalante MD [address] [place] [phone] PCP - General Internal Medicine 03/17/23 documented as of this encounter
--- OUTSIDE RECORDS SUMMARY | 2025-02-21 10:40 | XMS_ITS | Encounter Summary ---
Author Organization [employer] Address [address] [place] [address] [address] [place] [address] Care Team Providers Care Accounting Machine Servicer Name Role Phone Darcie Escalante MD Primary Care Pro vider Reason for Visit * Reason Comments Med Refill Encounter Details Date Type Department Care Team ([facility] st Contact Info) Description 07/05/[address] [facility] [address] [place] [address] Darcie Escalante MD [address] [place] [address] Social History Tobacco Use Types Packs/Day Years [...] documented as of this encounter Care Teams Accounting Machine Servicer Relationship Specialty Start Date End Date Darcie Escalante MD [address] [place] [phone] PCP - General Internal Medicine 03/17/23 documented as of this encounter
--- OUTSIDE RECORDS SUMMARY | 2025-02-21 10:40 | XMS_ITS | Encounter Summary ---
Author Organization [employer] Address [address] [place] [address] 7t [place] [address] Care Team Providers Care Design Maintenance Engineer Name Role Phone Darcie Escalante MD Primary Care Pro vider Encounter Details Date Type Department Care Team ([facility] st Contact Info) Description 02/21/2025 Orders Only GENERIC EXTERNAL DATA DEPARTMENT Provider, Generic External Data Social History Tobacco Use Types Packs/Day Years [...] Answer Date Recorded Patient Health Questionnaire-9 Score 10 01/23/2025 Patient Health Questionnaire-9 Score 10 01/23/2025 Last PHQ-9: Questionnaire Data Not on file 0 01/23/2025 Housing Stability Answer Date Recorded What is [...] Answer Date Recorded Patient Health Questionnaire-2 Score 3 01/23/2025 Internet Access Answer Date Recorded Internet Access [...] Procedure Name Priority Date/Time Associated Diagnosis Comments CBC WITH AUTO DIFFERENTIAL Routine 02/21/2025 9:56 AM EDT documented in this encounter Results * (ABNORMAL) CBC auto differential (02/21/2025 9:56 AM EDT) White Blood Count 6.5 4.8 - 10.8 X10*3/uL [facility] Red Blood Count 4.30 4.20 - 5.50 X10*6/uL [facility] Hemoglobin 11.8(L) 12.0 - 16.0 g/dl [facility] Hematocrit 35.4(L) 37.0 - 47.0 % [facility] Mean Corpuscular Volume 82.3 80.0 - 98.0 fL [facility] Mean Corpuscular Hemoglobin 27.4 27.0 - 33.0 pg [facility] Mean Corpuscular HGB Conc 33.3 31.0 - 35.0 g/dl [facility] Red Cell Distribution Width 13.5 11.0 - 16.0 % [facility] Platelet Count 188 160 - 400 X10*3/uL [facility] Mean Platelet Volume 11.8 9.4 - 12.3 fL [facility] Neutrophils Percent Auto 61.9 45 - 73 % [facility] Imm Gran Pct Auto 0.2 0.0 - 0.4 % [facility] Lymphocytes Percent Auto 29.4 20 - 40 % [facility] Monocytes Percent Auto 5.3 2 - 11 % [facility] Eosinophils Percent Auto 2.6 0 - 4 % [facility] Basophils Percent Auto 0.6 0 - 2 % [facility] NRBC Pct Auto 0.0 0.0 - 0.2 /100WBC [facility] Neutrophils Absolute Auto 4.0 2.0 - 8.3 x10*3/uL [facility] Imm Gran Abs Auto 0.01 0.00 - 0.03 X10*3/uL [facility] Lymphocytes Absolute Auto 1.9 1.2 - 4.9 X10*3/uL [facility] Monocytes Absolute Auto 0.3 0.1 - 1.2 X10*3/uL [facility] Eosinophils Absolute Auto 0.2 0.0 - 0.4 X10*3/uL [facility] Basophils Absolute Auto 0.0 0.0 - 0.2 X10*3/uL [facility] NRBC Abs Auto 0.000 0.0 - 0.012 X10*3/uL [facility] 02/21/2025 9:56 AM EDT 02/21/2025 9:56 AM EDT us Generic External Data Provider LAB BLOOD ORDERAB LES Final Result Performing Organization Address City/State/[facility] Co de Phone Number [facility] [address] [place] [address] [phone] documented in this encounter Visit Diagnoses Not on filedocumented in this encounter Additional Health Concerns Assessment Noted Time PHQ-9 Depression Total Score: 10 01/23/2 025 10:05 AM EDT documented as of this encounter Care Teams Design Maintenance Engineer Relationship Specialty Start Date End Date Darcie Escalante MD [address] [place] [address] PCP - General Internal Medicine 03/17/23 documented as of this encounter
--- OUTSIDE RECORDS SUMMARY | 2025-02-21 10:41 | XMS_ITS | Clinical Summary ---
Author Organization [employer] Address [address] [place] [address] [address] [place] [address] Care Team Providers Care Inverform Machine Operator Name Role Phone Darcie Escalante MD Primary Care Pro vider Allergies No known active allergies Medications cholecalciferol (Vitamin D-3) 125 MCG (5000 UT) [...] by mouth in the morning. OTC Active lisinopril 10 MG tabletIndicatio ns:Elevated blood [...] mouth 2 times daily. 08/29/20 24 Active celecoxib (CeleBREX) 200 MG capsule Take 1 capsule by mouth 2 times daily. 11/06/19 25 Active sertraline (Zoloft) 50 MG tablet Take 50 mg by mouth Once per day. 12/11/19 25 Active traZODone (Desyrel) 50 MG tablet TAKE 1/2 TABLET BY MOUTH AT BEDTIME NEEDED 12/11/19 25 Active Tirzepatide-Hossein ght Management (Zepbound) 10 MG/0.5ML solution auto-injector Inject 0.5 mL (10 mg) under the skin 1 (one) time per week. 2 mL 3 01/24/20 25 026 Active ibuprofen 600 MG tablet Take by mouth. By mouth Q 8 prn 025 Discontinued(Ot her) cyclobenzaprine (Flexeril) 10 MG tablet Take 1 tablet (10 mg) by mouth at bedtime for 10 days. 10 tablet 07/02/20 24 025 Discontinued(Ot her) nicotine polacrilex (Nicorette) 2 MG gum CHEW 1 PIECE OF GUM EVERY 2 HOURS NEEDED FOR SMOKING CESSATION 100 each 07/26/20 24 025 Discontinued(Ot her) predniSONE (Deltasone) 5 MG tablet TAKE 3 TABLETS BY MOUTH EVERY DAY FOR FOURTEEN DAYS, THEN DECREASE TO 2 TABLETS DAILY FOR FOURTEEN DAYS, THEN 1 TABLET DAILY FOR FOURTEEN DAYS 07/25/20 24 025 Discontinued(Ot her) Zepbound 7.5 MG/0.5ML solution auto-injectorIn dications:Obesi ty (BMI 30.0-34.9) Inject 0.5 mL (7.5 mg) under the skin 1 (one) time per week. 2 mL 12/29/19 25 025 Discontinued Active Problems Problem Noted [...] smear : 2021 neg per pt at [facility] --no able to obtain previous record [...] smear : 2021 neg per pt at [facility] -- ---- requested record to Kaila [...] schedule her for Patch testing with the [facility] ?? Continue Elidel cream, twice daily ?? Begin Heliocare 1 cap every morning and CeraVe Mineral Sunscreen spf 50 every morning ?? Reinforce gentle cleansers and moisturizers ?? Return to clinic in one-week for re-evaluation. Assessment & Plan (06/26/2023 10:30 AM EDT): Pt w facial rash from record had skin bx w prior coffee grinder told to be negative x concerning autoimmune dx Possible allergic contact dermatitis from derm's note 05/2023 ESR 23 ( Elevated) , CRP wnl,total protein mild elev at 8.5, LEN neg,RF neg . -here f w coffee grinder on pimecrolimus 1% BID and minocycline 100 mg BID x 14 days -close to complete tx -continue care w coffee grinder -next apt 07/08/2023 -may need to consider to hold statins as it can be associated w eczema discuss w pt at next apt if rash still present -referred to scallop cutter machine by derm pd to get apt Assessment & Plan (04/06/2023 11:28 AM EDT): Pt w facial rash from record had skin bx w prior coffee grinder told to be negative x concerning autoimmune dx Possible allergic contact dermatitis from derm's note -here f w coffee grinder started on tacrolimus topical w improvement and to keep topical steroids -to f w derm in 6 weeks -referred to scallop cutter machine by derm pd to get apt -pt [...] Encounters Date Type Department Care Team Description 02/21/2025 Orders Only GENERIC EXTERNAL DATA DEPARTMENT Provider, Generic External Data 01/23/2025 10:00 AM EDT Office Visit [facility] [address] [place] [address] Darcie Escalante MD Primary hypertension (Primary Dx); Dietary counseling; Exercise counseling; Obesity (BMI 30.0-34.9); Health care maintenance; Tobacco use 01/23/2025 Travel 01/16/2025 Travel 01/15/2025 Orders Only [facility] [address] [place] [address] ProviderSindi MD 01/14/2025 Telephone [facility] [address] [place] [address] Darcie Escalante MD 01/04/2025 Population Health Risk Score [facility] [address] [phone] Provider, Population Health Generic 12/27/2024 Refill [facility] [address] [place] [address] Gladis Mcmullen ANP Obesity (BMI 30.0-34.9) 11/28/2024 Refill [facility] [address] [place] [address] Gladis Mcmullen ANP Obesity (BMI 30.0-34.9) from Last 3 Months Immunizations Name Administration Dates Next Due INFLUENZA INJECTABLE QUADRIV ALANT CCIIV4 MDCK Multi-dose vial 07/03/2018 Influenza Injectable Quadriv alant Preservative Free IIV4 MDCK 09/14/2022,07/21/2021,10/29/2020,2018 Influenza, seasonal, injecta ble, preservative free 08/07/2024 PPD Test 01/03/2019 Pfizer Covid-19 Vaccine 12+ 08/07/2024 Pfizer Covid-19 [...] Sign Reading Time Taken Comments Blood Pressure 131/80 01/23/2025 10:03 AM EDT Pulse 75 01/23/2025 10:03 AM EDT Temperature 36.3 ??C (97.4 ??F) 01/23/2025 1 0:03 AM EDT Respiratory Rate 20 01/23/2025 10:0 3 AM EDT Oxygen Saturation 99% 01/23/2025 10: 03 AM EDT Inhaled Oxygen Concentration - - Weight 79.7 kg (175 lb 12.8 oz) 025 10:03 AM EDT Height 157.5 cm (5' 2 ) 01/23/2025 10:0 3 AM EDT Body Mass Index 32.15 01/23/2025 10:03 AM EDT Plan of Treatment Health Maintenance Due Date Last Done Comments Family Planning (PISQ) 2002 Hepatitis A Vaccines (1 of 2 - Risk 2-dose series) 2006 Hepatitis B Vaccines (1 of 3 - 19+ 3-dose series) 2006 SDOH Screening 06/01/2025 06/01/2024 Alcohol/Substance Use Screening 01/23/2026 01/23/2025 Depression Screening 01/23/2026 01/23/2025, 01/24/20 Tobacco Screening 01/23/2026 01/23/2025 Cervical Cancer Screening 11/15/2027 HPV/Cotest 11/15/2027 Pap Smear 11/15/2027 11/15/2022 DTaP/Tdap/Td Vaccines (2 - Td or Tdap) [...] AUTO DIFFERENTIAL Routine 02/21/2025 9:56 AM EDT HEPATITIS C AB W/REFL TO HCV RNA, QN, PCR Routine 08/07/2024 8:40 AM EDT Annual physical exam HIV 1/2 ANTIGEN/ANTIBODY, FOURTH GENERATION W/RFL Routine 08/07/2024 8:40 AM EDT Annual physical exam LIPID PANEL, STANDARD Routine 08/07/2024 8:40 AM EDT Annual physical exam HM PAP/HPV Routine 11/15/2022 10:55 AM EST from Last 3 Months or Most Recently Relevant to Health Maintenance Results * (ABNORMAL) CBC auto differential (02/21/2025 9:56 AM EDT) White Blood Count 6.5 4.8 - 10.8 X10*3/uL [facility] Red Blood Count 4.30 4.20 - 5.50 X10*6/uL [facility] Hemoglobin 11.8(L) 12.0 - 16.0 g/dl [facility] Hematocrit 35.4(L) 37.0 - 47.0 % [facility] Mean Corpuscular Volume 82.3 80.0 - 98.0 fL [facility] Mean Corpuscular Hemoglobin 27.4 27.0 - 33.0 pg [facility] Mean Corpuscular HGB Conc 33.3 31.0 - 35.0 g/dl [facility] Red Cell Distribution Width 13.5 11.0 - 16.0 % [facility] Platelet Count 188 160 - 400 X10*3/uL [facility] Mean Platelet Volume 11.8 9.4 - 12.3 fL [facility] Neutrophils Percent Auto 61.9 45 - 73 % [facility] Imm Gran Pct Auto 0.2 0.0 - 0.4 % [facility] Lymphocytes Percent Auto 29.4 20 - 40 % [facility] Monocytes Percent Auto 5.3 2 - 11 % [facility] Eosinophils Percent Auto 2.6 0 - 4 % [facility] Basophils Percent Auto 0.6 0 - 2 % [facility] NRBC Pct Auto 0.0 0.0 - 0.2 /100WBC [facility] Neutrophils Absolute Auto 4.0 2.0 - 8.3 x10*3/uL [facility] Imm Gran Abs Auto 0.01 0.00 - 0.03 X10*3/uL [facility] Lymphocytes Absolute Auto 1.9 1.2 - 4.9 X10*3/uL [facility] Monocytes Absolute Auto 0.3 0.1 - 1.2 X10*3/uL [facility] Eosinophils Absolute Auto 0.2 0.0 - 0.4 X10*3/uL [facility] Basophils Absolute Auto 0.0 0.0 - 0.2 X10*3/uL [facility] NRBC Abs Auto 0.000 0.0 - 0.012 X10*3/uL [facility] 02/21/2025 9:56 AM EDT 02/21/2025 9:56 AM EDT us Generic External Data Provider LAB BLOOD ORDERAB LES Final Result [facility] [address] [place] [phone] * Hepatitis C Antibody with Reflex to HCV, RNA, Quantitative, Real-Time PCR (08/07/2024 8:40 AM EDT) Hepatitis C Antibody Nonreactive Nonreactive [facility] Comment:Antibodies to HCV no t detected; does not exclude early acuteHCV infection. Blood Venous blood specimen / Unknown 08/07/2024 8:40 AM EDT 08/07/2024 11:11 AM EDT us Darcie Joel MD LAB BLOOD ORDERAB LES Final Result Performing Organization Address City/[facility]/ZIP Co de Phone Number [facility] [address] [place] [phone] * HIV-1/2 Antigen and Antibodies, Fourth Generation, with Reflexes (08/07/2024 8:40 AM EDT) HIV AB/AG Nonreactive Nonreactive [facility] Comment:HIV-1 p24 Ag and/or HIV-1/HIV-2 Ab not detected.A test result that is nonreactive does not exclude thepossibility of exposure to or infection with HIV-1 and/orHIV-2. Nonreactive results in this assay for individualswith prior exposure to HIV-1 and/or HIV-2 may be due toantigen and antibody levels that are below the limit ofdetection of this assay.The zeroboundniLockstream HIV Ag/Ab Combo assay result andsupplemental assay results should be interpreted inconjunction with the patient's clinical presentation,history and other laboratory results. If the results areinconsistent with clinical evidence, additional testing issuggested to confirm the result. Blood Venous blood specimen / Unknown 08/07/2024 8:40 AM EDT 08/07/2024 11:11 AM EDT us Darcie Joel MD LAB BLOOD ORDERAB LES Final Result Performing Organization Address City/[facility]/ZIP Co de Phone Number [facility] [address] [place] [phone] * (ABNORMAL) Lipid Panel, Standard (08/07/2024 8:40 AM EDT) Triglycerides 198(H) <150 mg/dL [facility] Comment:Desirable Triglyceri de: less than 150 mg/dLBorderline High Triglyceride 150-199 mg/dLHigh Triglyceride: 200-499 mg/dLVery High Triglyceride: greater than or equal to 5OO mg/dL Cholesterol 179 <200 mg/dL [facility] Comment:Desirable Cholestero l: less than 200 mg/dLBorderline High Cholesterol: 200-239 mg/dLHigh Cholesterol: greater than 239 mg/dL LDL Cholesterol Calculated 96 <100 mg/dL [facility] Comment:Desirable LDL: less than 100 mg/dLNear Optimal/Above Optimal LDL: 110- 129 mg/dLBorderline High LDL: 130-159 mg/dLHigh LDL: 160-189 mg/dLVery High LDL: greater than or equal to 190 mg/dL HDL Cholesterol 44 >40 mg/dL [facility] Comment:Desirable HDL: great er than 40 mg/dL Note: This HDL assay may give artificially low results in patients with liver disease. Blood Venous blood specimen / Unknown 08/07/2024 8:40 AM EDT 08/07/2024 11:11 AM EDT us Darcie Joel MD LAB BLOOD ORDERAB LES Final Result Performing Organization Address City/[facility]/ZIP Co de Phone Number [facility] [address] [place] [phone] * HM PAP/HPV (11/15/2022 10:55 AM EST) us Historical Provider HEALTH MAINTENANCE Final Result from Last 3 Months or Most Recently Relevant to Health Maintenance [place] [address] [place] [address] C3 Care Teams Inverform Machine Operator Relationship Specialty Start Date End Date Darcie Escalante MD [address] [place] [phone] PCP - General Internal Medicine 03/17/23
[2025-02-21 11:07] LABS: Appearance Urine Cloudy; Color Urine Yellow; Glucose Urine UA Negative (Negative); Leukocyte Esterase Urine Negative (Negative); Nitrite Urine Negative (Negative); UMIC TRIGGER UA YES; Urine Blood Moderate (2+) (Negative); Urine Ketones Negative (Negative); Urine Protein Negative (Neg-Trace)
[2025-02-21 11:21] LABS: Alanine Aminotransferase 14 U/L (0-31); Albumin Level 4.4 g/dL (3.5-5.0); Alkaline Phosphatase 55 U/L (39-117); Anion Gap 10 (12-20); Aspartate Amino Transferase 15 U/L (5-31); Bilirubin Total 0.6 mg/dL (0.0-1.0); Blood Urea Nitrogen 16 mg/dL (9-16); Calcium 9.5 mg/dL (8.4-10.2); Carbon Dioxide 25 mmol/L (22-29); Chloride 107 mmol/L (96-108); Estimated Glomerular Filt Rate > 60; Glucose Random 76 mg/dL (60-115); Potassium 4.1 mmol/L (3.3-5.1); Sodium 138 mmol/L (135-145)
[2025-02-21 11:28] LABS: Bacteria Urine 1+ (None Seen); Hyaline Casts Urine 0-2 /LPF (0-2); RBC Urine 0-2 /HPF (0-2); WBC Urine 0-5 /HPF (0-5)
[2025-02-21 11:42] LABS: Erythrocyte Sedimentation Rate 16 MM/HR (0-20)
[2025-02-21 11:58] LABS: Creatinine Urine 123.14 mg/dL; Total Protein Urine Random < 7 mg/dL (<12)
[2025-02-22 21:52] LABS: Anti DNA DS Antibody <1 IU/mL
[2025-02-25 11:03] LABS: Complement C3 170 mg/dL (83-193)
== END 2025-02-21 09:39 | disposition home or self-care (01) ==
LOC: HO.LAB 09:38
PROVIDERS: PCP Student in an Organized Health Care Education/Training Program; Visit Provider Student in an Organized Health Care Education/Training Program
DX: L93.1 Subacute cutaneous lupus erythematosus (principal)
CPT/HCPCS: 36415; 80053; 81001; 82570; 84156; 85025; 85652; 86140; 86160; 86225

== ENCOUNTER 2025-02-22 07:48 | Outpatient (AMB) | payer MEDICAID, SELFPAY ==
--- OUTSIDE RECORDS SUMMARY | 2025-02-22 07:52 | XMS_ITS | Clinical Summary ---
Author Organization [facility] ity Address [address] [place] [address] Care Team Providers Care Credit Specialist Name Role Phone Juana Kim MD Primary [...] 02/08/2022 Overview (10/11/2024): Patient attached results to [employer] message. Fatty liver disease, nonalcoholic 10/28/2020 Transaminitis [...] EDT Office Visit [facility] [place] [address] [place] [phone] Caitie Reyes, [facility] [address] [place] [address] Health Maintenance Due Date Last Done Comments [...] * Cervical Cancer Screening: HPV (11/24/2022) Pathologist [facility] Cervical Cancer Screening: HPV abstracted, negative [facility] Provider HEALTH MAINTENANCE Final Result * HIV Screening (11/15/2022) Pathologist [facility] HIV Screening abstracted [facility] Provider HEALTH MAINTENANCE Final Result * Hepatitis C Screening (11/15/2022) Pathologist [facility] Hepatitis C Screening abstracted [facility] Provider HEALTH MAINTENANCE Final Result * (ABNORMAL) Lipid panel (05/03/2022) [facility] LDL/HDL Ratio 7(A) 0 - 4 Triglycerides 247(A) 0 - 150 mg/dL Cholesterol 234(A) 0 - 200 mg/dL HDL 36(A) >=40 mg/dL LDL Cholesterol 149(A) 0 - 100 mg/dL Blood Venous blood specimen / Unknown [facility] Provider LAB BLOOD ORDERABLES Jennifer l Result from Last 3 Months or Most Recently Relevant to Health Maintenance Insurance MEDICAID - [place] Care Teams Credit Specialist Relationship Specialty Start Date End Date Juana Kim MD [address] [place] [phone] PCP - General Internal Medicine 05/24/22
--- OUTSIDE RECORDS SUMMARY | 2025-02-22 07:52 | XMS_ITS | Encounter Summary ---
Author Organization [employer] [facility] Address [address] [place] [address] [address] [address] Care Team Providers Care Faculty Dean Name Role Phone Darcie Escalante MD Primary Care Pro vider Encounter Details Date Type Department Care Team (Latest Contact Info) Description 08/28/2019 Abstract [facility] CONVERSIONS Dental, Provider, [...] on filedocumented in this encounter Care Teams Faculty Dean Relationship Specialty Start Date End Date Darcie Escalante MD [address] [place] [phone] PCP - General Internal Medicine 03/17/23 documented as of this encounter
--- OUTSIDE RECORDS SUMMARY | 2025-02-22 07:52 | XMS_ITS | Encounter Summary ---
Author Organization [facility] Address [address] [place] [phone] Care Team Providers Care Beader Tender Name Role Phone Darcie Escalante MD Primary Care Pro vider Encounter Details Date Type Department Care Team (Latest Contact Info) Description 01/15/2021 Abstract [facility] CONVERSIONS Dental, Provider, DDS Social History Tobacco [...] on filedocumented in this encounter Care Teams Beader Tender Relationship Specialty Start Date End Date Darcie Escalante MD [address] [place] [phone] PCP - General Internal Medicine 03/17/23 documented as of this encounter
--- OUTSIDE RECORDS SUMMARY | 2025-02-22 07:52 | XMS_ITS | Encounter Summary ---
Author Organization [employer] Address [address] [facility] [address] [place] [address] Care Team Providers Care Sql Report Writer Name Role Phone Darcie Escalante MD Primary Care Pro vider Encounter Details Date Type Department Care Team ([facility] st Contact Info) Description 01/15/2025 Orders Only [facility] [address] [place], [place] [phone] Provider, MD Sindi Social History Tobacco Use [...] documented as of this encounter Care Teams Sql Report Writer Relationship Specialty Start Date End Date Darcie Escalante MD [address] [place] [phone] PCP - General Internal Medicine 03/17/23 documented as of this encounter
--- OUTSIDE RECORDS SUMMARY | 2025-02-22 07:52 | XMS_ITS | Clinical Summary ---
Author Organization [employer] Address [address] [place] [address] [address] [place] [address] Care Team Providers Care Carry All Driver Name Role Phone Darcie Escalante MD Primary Care Pro vider Allergies No known active allergies Medications cholecalciferol (Vitamin D-3) 125 MCG (5000 UT) capsule Take 125 mcg by mouth in the morning. 3 Active Alcohol Swabs (Alcohol Pads) 70 % pads Use as directed on skin 100 each 3 Active Blood Pressure Monitor kitIndications:El evated blood pressure reading 1 kit in the morning. 1 kit 3 Active Multiple Vitamin (multivitamin) tablet Take 1 tablet by mouth in the morning. OTC Active lisinopril 10 MG tabletIndications :Elevated blood pressure reading TAKE 1 TABLET BY MOUTH EVERY DAY 90 tablet 4 Active rosuvastatin (Crestor) 5 MG tablet TAKE 1 TABLET BY MOUTH EVERY DAY IN THE MORNING 90 tablet 1 4 Active omega-3 acid ethyl esters (Lovaza) 1 g capsule TAKE 1 CAPSULE BY MOUTH EVERY MORNING 90 capsule 1 4 Active betamethasone dipropionate (Diprosone) 0.05 % ointment APPLY TO THE AFFECTED AREA(S) ON FACE TWICE DAILY NEEDED FOR flares, DECREASE USE as symptoms improve 4 Active hydroxychloroquin e (Plaquenil) 200 MG tablet Take 1 tablet by mouth 2 times daily. 4 Active celecoxib (CeleBREX) 200 MG capsule Take 1 capsule by mouth 2 times daily. 5 Active sertraline (Zoloft) 50 MG tablet Take 50 mg by mouth Once per day. 5 Active traZODone (Desyrel) 50 MG tablet TAKE 1/2 TABLET BY MOUTH AT BEDTIME NEEDED 5 Active Tirzepatide-Weigh t Management (Zepbound) 10 MG/0.5ML solution auto-injector Inject 0.5 mL (10 mg) under the skin 1 (one) time per week. 2 mL 3 5 01/24/20 26 Active Active Problems Problem Noted Date Diagnosed [...] smear : 2021 neg per pt at [facility] --no able to obtain previous record [...] smear : 2021 neg per pt at [facility] -- ---- requested record to Kaila [...] schedule her for Patch testing with the [employer] [employer] ?? Continue Elidel cream, twice daily ?? Begin Heliocare 1 cap every morning and CeraVe Mineral Sunscreen spf 50 every morning ?? Reinforce gentle cleansers and moisturizers ?? Return to clinic in one-week for re-evaluation. Assessment & Plan (06/26/2023 10:30 AM EDT): Pt w facial rash from record had skin bx w prior printing machine mechanic told to be negative x concerning autoimmune dx Possible allergic contact dermatitis from derm's note 05/2023 ESR 23 ( Elevated) , CRP wnl,total protein mild elev at 8.5, LEN neg,RF neg . -here f w printing machine mechanic on pimecrolimus 1% BID and minocycline 100 mg BID x 14 days -close to complete tx -continue care w printing machine mechanic -next apt 07/08/2023 -may need to consider to hold statins as it can be associated w eczema discuss w pt at next apt if rash still present -referred to loom overhauler by derm pd to get apt Assessment & Plan (04/06/2023 11:28 AM EDT): Pt w facial rash from record had skin bx w prior printing machine mechanic told to be negative x concerning autoimmune dx Possible allergic contact dermatitis from derm's note -here f w printing machine mechanic started on tacrolimus topical w improvement and to keep topical steroids -to f w derm in 6 weeks -referred to loom overhauler by derm pd to get apt -pt reports on and off arthralgias seems more in right hand, no rigidity - possible from overuse? -will check LNE,CRP,ESR and RF -will r/o in setting of [...] Data 01/23/2025 10:00 AM EDT Office Visit [facility] [address] [place] [phone] Darcie Escalante MD Primary hypertension (Primary Dx); Dietary counseling; Exercise counseling; Obesity (BMI 30.0-34.9); Health care maintenance; Tobacco use 01/23/2025 Travel 01/16/2025 Travel 01/15/2025 Orders Only [facility] PEDS [address] [place] [address] ProviderSindi MD 01/14/2025 Telephone [facility] [address] [place] [address] Darcie Escalante MD 01/04/2025 Population Health Risk Score [facility] (C3) Department [address] [phone] Provider, Population Health Generic 12/27/2024 Refill [facility] [address] [place], [place] [phone] Gladis Mcmullen ANP Obesity (BMI 30.0-34.9) 11/28/2024 Refill [facility] [address] [place] [address] Gladis Mcmullen ANP Obesity (BMI 30.0-34.9) from [...] Procedure Name Priority Date/Time Associated Diagnosis Comments SED RATE BY MODIFIED HERMILAREN Routine 02/21/2025 9:56 AM EDT C-REACTIVE PROTEIN Routine 02/21/2025 9: 56 AM EDT COMPREHENSIVE METABOLIC PANEL Routine 02/21/2025 9:56 AM EDT CBC WITH AUTO DIFFERENTIAL Routine 02/21/2025 9:56 AM EDT PROTEIN CREATININE RATIO, URINE Routine 02/21/2025 9:50 AM EDT URINALYSIS, COMPLETE Routine 02/21/2025 9:50 AM EDT HEPATITIS C AB W/REFL TO [...] Count 6.5 4.8 - 10.8 X10*3/uL [facility] Red Blood Count 4.30 4.20 - 5.50 X10*6/uL [facility] Hemoglobin 11.8(L) 12.0 - 16.0 g/dl [facility] Hematocrit 35.4(L) 37.0 - 47.0 % [facility] Mean Corpuscular Volume 82.3 80.0 - 98.0 fL [facility] Mean Corpuscular Hemoglobin 27.4 27.0 - 33.0 pg [facility] Mean Corpuscular HGB Conc 33.3 31.0 - 35.0 g/dl [facility] Red Cell Distribution Width 13.5 11.0 - 16.0 % [facility] Platelet Count 188 160 - 400 X10*3/uL [facility] Mean Platelet Volume 11.8 9.4 - 12.3 fL [facility] Neutrophils Percent Auto 61.9 45 - 73 % [facility] Imm Gran Pct Auto 0.2 0.0 - 0.4 % [facility] Lymphocytes Percent Auto 29.4 20 - 40 % [facility] Monocytes Percent Auto 5.3 2 - 11 % [facility] Eosinophils Percent Auto 2.6 0 - 4 % [facility] Basophils Percent Auto 0.6 0 - 2 % [facility] NRBC Pct Auto 0.0 0.0 - 0.2 /100WBC [facility] Neutrophils Absolute Auto 4.0 2.0 - 8.3 x10*3/uL [facility] Imm Gran Abs Auto 0.01 0.00 - 0.03 X10*3/uL [facility] Lymphocytes Absolute Auto 1.9 1.2 - 4.9 X10*3/uL [facility] Monocytes Absolute Auto 0.3 0.1 - 1.2 X10*3/uL [facility] Eosinophils Absolute Auto 0.2 0.0 - 0.4 X10*3/uL [facility] Basophils Absolute Auto 0.0 0.0 - 0.2 X10*3/uL [facility] NRBC Abs Auto 0.000 0.0 - 0.012 X10*3/uL [facility] 02/21/2025 9:56 AM EDT 02/21/2025 9:56 AM EDT us Generic External Data Provider LAB BLOOD ORDERAB LES Final Result [facility] [address] [place] [phone] * Sed Rate by Modified Nadirergren (02/21/2025 9:56 AM EDT) Pathologist [facility] Erythrocyte Sedimentation Rate 16 0 - 20 MM/HR [facility] Comment:Patients with polycy themia and many hemoglobin abnormalitiesmay have depressed sed rates whereas patients with anemiamay have elevated sed rates. 02/21/2025 9:56 AM EDT 02/21/2025 9:56 AM EDT us Generic External Data Provider LAB BLOOD ORDERAB LES Final Result Performing Organization Address [facility] Co de Phone Number [facility] [address] [place] [address] [phone] * C-reactive Protein (02/21/2025 9:56 AM EDT) [facility] C Reactive Protein 0.10 < or = 0.50 mg/dL [facility] 02/21/2025 9:56 AM EDT 02/21/2025 9:56 AM EDT Generic External Data Provider LAB BLOOD ORDERAB LES Final Result Performing Organization Address [facility] Co de Phone Number [facility] [address] [place] [address] [phone] * (ABNORMAL) Comprehensive Metabolic Panel (02/21/2025 9:56 AM EDT) Pathologist [facility] Sodium 138 135 - 145 mmol/L [facility] Potassium 4.1 3.3 - 5.1 mmol/L [facility] Chloride 107 96 - 108 mmol/L [facility] Carbon Dioxide 25 22 - 29 mmol/L [facility] Anion Gap 10(L) 12 - 20 [facility] Urea Nitrogen (BUN) 16 9 - 16 mg/dL [facility] Creatinine, Serum 0.77 0.5 - 1.4 mg/dL [facility] Estimated Glomerular Filt Rate >60 [facility] Comment:Chronic Kidney Disea se: Estimated GFR < 60 mL/min/1.96a6Pdidth Kidney Disease: Estimated GFR < 15 mL/min/1.73m2 Glucose 76 60 - 115 mg/dL [facility] Calcium 9.5 8.4 - 10.2 mg/dL [facility] Bilirubin, Total 0.6 0.0 - 1.0 mg/dL [facility] Aspartate Amino Transferase 15 5 - 31 U/L [facility] Alanine Aminotransferase 14 0 - 31 U/L [facility] Total Protein 8.0 6.5 - 8.0 g/dL [facility] Albumin Level 4.4 3.5 - 5.0 g/dL [facility] Alkaline Phosphatase 55 39 - 117 U/L [facility] 02/21/2025 9:56 AM EDT 02/21/2025 9:56 AM EDT us Generic External Data Provider LAB BLOOD ORDERAB LES Final Result [facility] [address] [place] [phone] * Protein Creatinine Ratio, Urine (02/21/2025 9:50 AM EDT) Creatinine, Urine 123.14 mg/dL [facility] Protein, Total, Random Urine <7 <12 mg/dL [facility] Protein/Creatin ine Ratio, Ur TNP <0.2 [facility] Comment:Unable to calculate urine protein creatinine ratio due tolow creatinine or protein result. 02/21/2025 9:50 AM EDT 02/21/2025 10:46 AM EDT us Generic External Data Provider LAB URINE ORDERAB LES Final Result Performing Organization Address City/[facility]/ZIP Co de Phone Number [facility] [address] [place] [address] [phone] * (ABNORMAL) Urinalysis Complete (02/21/2025 9:50 AM EDT) Color Urine Yellow [facility] Appearance Urine Cloudy [facility] PH 6.0 5.0 - 9.0 [facility] Glucose Urine UA Negative Negative mg/dL [facility] Urine Blood Moderate (2+)(A) Negative [facility] Specific [place] - Urine 1.020 1.005 - 1.025 [facility] Urine Protein Negative Neg-Trace mg/dL [facility] Urine Ketones Negative Negative mg/dL [facility] Nitrite Urine Negative Negative [facility] Leukocyte Esterase Urine Negative Negative [facility] RBC Urine 0-2 0 - 2 /HPF [facility] Urine WBC 0-5 0 - 5 /HPF [facility] Urine Squamous Epithelial Cell 11-20 0 - 2 /HPF [facility] Urine Bacteria 1+ None Seen [facility] Hyaline Casts, Urine 0-2 0 - 2 /LPF [facility] 02/21/2025 9:50 AM EDT 02/21/2025 10:46 AM EDT us Generic External Data Provider LAB URINE ORDERAB LES Final Result Performing Organization Address [facility]/ZIP Co de Phone Number [facility] [address] [place] [phone] * Hepatitis C Antibody with Reflex to HCV, RNA, Quantitative, Real-Time PCR (08/07/2024 8:40 AM EDT) Hepatitis C Antibody Nonreactive Nonreactive [facility] Comment:Antibodies to HCV no t detected; does not exclude early acuteHCV infection. Blood Venous blood specimen / Unknown 08/07/2024 8:40 AM EDT 08/07/2024 11:11 AM EDT us Darcie Joel MD LAB BLOOD ORDERAB LES Final Result Performing Organization Address City/[facility]/ZIP Co de Phone Number [facility] [address] [place] [phone] * HIV-1/2 Antigen and Antibodies, Fourth Generation, with Reflexes (08/07/2024 8:40 AM EDT) HIV AB/AG Nonreactive Nonreactive [facility] Comment:HIV-1 p24 Ag and/or HIV-1/HIV-2 Ab not detected.A test result that is nonreactive does not exclude thepossibility of exposure to or infection with HIV-1 and/orHIV-2. Nonreactive results in this assay for individualswith prior exposure to HIV-1 and/or HIV-2 may be due toantigen and antibody levels that are below the limit ofdetection of this assay.The Instant BioScan HIV Ag/Ab Combo assay result andsupplemental assay results should be interpreted inconjunction with the patient's clinical presentation,history and other laboratory results. If the results areinconsistent with clinical evidence, additional testing issuggested to confirm the result. Blood Venous blood specimen / Unknown 08/07/2024 8:40 AM EDT 08/07/2024 11:11 AM EDT us Darcie Joel MD LAB BLOOD ORDERAB LES Final Result Performing Organization Address [facility] Co de Phone Number [facility] [address] [place] [address] [phone] * (ABNORMAL) Lipid Panel, Standard (08/07/2024 8:40 AM EDT) Triglycerides 198(H) <150 mg/dL [facility] Comment:Desirable Triglyceri de: less than 150 mg/dLBorderline High Triglyceride 150-199 mg/dLHigh Triglyceride: 200-499 mg/dLVery High Triglyceride: greater than or equal to 5OO mg/dL Cholesterol 179 <200 mg/dL [facility] Comment:Desirable Cholestero l: less than 200 mg/dLBorderline High Cholesterol: 200-239 mg/dLHigh Cholesterol: greater than 239 mg/dL LDL Cholesterol Calculated 96 <100 mg/dL [facility] Comment:Desirable LDL: less than 100 mg/dLNear Optimal/Above Optimal LDL: 110- 129 mg/dLBorderline High LDL: 130-159 mg/dLHigh LDL: 160-189 mg/dLVery High LDL: greater than or equal to 190 mg/dL HDL Cholesterol 44 >40 mg/dL [facility] Comment:Desirable HDL: great er than 40 mg/dL Note: This HDL assay may give artificially low results in patients with liver disease. Blood Venous blood specimen / Unknown 08/07/2024 8:40 AM EDT 08/07/2024 11:11 AM EDT Darcie Joel MD LAB BLOOD ORDERAB LES Final Result [facility] [address] [place] [phone] * HM PAP/HPV (11/15/2022 10:55 AM EST) Historical Provider HEALTH MAINTENANCE Final Result from Last 3 Months or Most Recently Relevant to Health Maintenance Insurance [facility] C3 Care Teams Carry All Driver Relationship Specialty Start Date End Date Darcie Escalante MD [address] [place] [phone] PCP - General Internal Medicine 03/17/23
--- OUTSIDE RECORDS SUMMARY | 2025-02-22 07:52 | XMS_ITS | Encounter Summary ---
Author Organization [employer] Address [address] [place] [address] [address] [place] [address] Care Team Providers Care Checker Name Role Phone Darcie Escalante MD Primary Care Pro vider Encounter Details Date Type Department Care Team ([facility] st Contact Info) Description 02/21/2025 Orders [...] AUTO DIFFERENTIAL Routine 02/21/2025 9:56 AM EDT SED RATE BY MODIFIED WESTERGREN Routine 02/21/2025 9:56 AM EDT C-REACTIVE PROTEIN Routine 02/21/2025 9: 56 AM EDT COMPREHENSIVE METABOLIC PANEL Routine 02/21/2025 9:56 AM EDT PROTEIN CREATININE RATIO, URINE Routine 02/21/2025 9:50 AM EDT URINALYSIS, COMPLETE Routine 02/21/2025 9:50 AM EDT documented in this encounter Results * Sed Rate by Modified Westergren (02/21/2025 9:56 AM EDT) Erythrocyte Sedimentation Rate 16 0 - 20 MM/HR [facility] Comment:Patients with polycy themia and many hemoglobin abnormalitiesmay have depressed sed rates whereas patients with anemiamay have elevated sed rates. 02/21/2025 9:56 AM EDT 02/21/2025 9:56 AM EDT us Generic External Data Provider LAB BLOOD ORDERAB LES Final Result Performing Organization Address City/[facility]/ZIP Co de Phone Number [facility] [address] [place] [phone] * C-reactive Protein (02/21/2025 9:56 AM EDT) C Reactive Protein 0.10 < or = 0.50 mg/dL [facility] 02/21/2025 9:56 AM EDT 02/21/2025 9:56 AM EDT Generic External Data Provider LAB BLOOD ORDERAB LES Final Result Performing Organization Address [facility] Co de Phone Number [facility] [address] [place] [address] [phone] * (ABNORMAL) Comprehensive Metabolic Panel (02/21/2025 9:56 AM EDT) Pathologist [facility] Sodium 138 135 - 145 mmol/L [facility] Potassium 4.1 3.3 - 5.1 mmol/L [facility] Chloride 107 96 - 108 mmol/L [facility] Carbon Dioxide 25 22 - 29 mmol/L [facility] Anion Gap 10(L) 12 - 20 [facility] Urea Nitrogen (BUN) 16 9 - 16 mg/dL [facility] Creatinine, Serum 0.77 0.5 - 1.4 mg/dL [facility] Estimated Glomerular Filt Rate >60 [facility] Comment:Chronic Kidney Disea se: Estimated GFR < 60 mL/min/1.59q2Dzarlc Kidney Disease: Estimated GFR < 15 mL/min/1.73m2 Glucose 76 60 - 115 mg/dL [facility] Calcium 9.5 8.4 - 10.2 mg/dL [facility] Bilirubin, Total 0.6 0.0 - 1.0 mg/dL [facility] Aspartate Amino Transferase 15 5 - 31 U/L [facility] Alanine Aminotransferase 14 0 - 31 U/L [facility] Total Protein 8.0 6.5 - 8.0 g/dL [facility] Albumin Level 4.4 3.5 - 5.0 g/dL [facility] Alkaline Phosphatase 55 39 - 117 U/L [facility] 02/21/2025 9:56 AM EDT 02/21/2025 9:56 AM EDT us Generic External Data Provider LAB BLOOD ORDERAB LES Final Result [facility] [address] [place] [address] [phone] * (ABNORMAL) CBC auto differential (02/21/2025 9:56 AM EDT) White Blood Count 6.5 4.8 - 10.8 X10*3/uL [facility] Red Blood Count 4.30 4.20 - 5.50 X10*6/uL [facility] Hemoglobin 11.8(L) 12.0 - 16.0 g/dl [facility] Hematocrit 35.4(L) 37.0 - 47.0 % [facility] Mean Corpuscular Volume 82.3 80.0 - 98.0 fL [facility] Mean Corpuscular Hemoglobin 27.4 27.0 - 33.0 pg [facility] Mean Corpuscular HGB Conc 33.3 31.0 - 35.0 g/dl [facility] Red Cell Distribution Width 13.5 11.0 - 16.0 % [facility] Platelet Count 188 160 - 400 X10*3/uL [facility] Mean Platelet Volume 11.8 9.4 - 12.3 fL [facility] Neutrophils Percent Auto 61.9 45 - 73 % [facility] Imm Gran Pct Auto 0.2 0.0 - 0.4 % [facility] Lymphocytes Percent Auto 29.4 20 - 40 % [facility] Monocytes Percent Auto 5.3 2 - 11 % [facility] Eosinophils Percent Auto 2.6 0 - 4 % [facility] Basophils Percent Auto 0.6 0 - 2 % [facility] NRBC Pct Auto 0.0 0.0 - 0.2 /100WBC [facility] Neutrophils Absolute Auto 4.0 2.0 - 8.3 x10*3/uL [facility] Imm Gran Abs Auto 0.01 0.00 - 0.03 X10*3/uL [facility] Lymphocytes Absolute Auto 1.9 1.2 - 4.9 X10*3/uL [facility] Monocytes Absolute Auto 0.3 0.1 - 1.2 X10*3/uL [facility] Eosinophils Absolute Auto 0.2 0.0 - 0.4 X10*3/uL [facility] Basophils Absolute Auto 0.0 0.0 - 0.2 X10*3/uL [facility] NRBC Abs Auto 0.000 0.0 - 0.012 X10*3/uL [facility] 02/21/2025 9:56 AM EDT 02/21/2025 9:56 AM EDT us Generic External Data Provider LAB BLOOD ORDERAB LES Final Result [facility] [address] [place] [phone] * Protein Creatinine Ratio, Urine (02/21/2025 9:50 AM EDT) Creatinine, Urine 123.14 mg/dL [facility] Protein, Total, Random Urine <7 <12 mg/dL [facility] Protein/Creatin ine Ratio, Ur TNP <0.2 [facility] Comment:Unable to calculate urine protein creatinine ratio due tolow creatinine or protein result. 02/21/2025 9:50 AM EDT 02/21/2025 10:46 AM EDT us Generic External Data Provider LAB URINE ORDERAB LES Final Result [facility] [address] [place] [phone] * (ABNORMAL) Urinalysis Complete (02/21/2025 9:50 AM EDT) Color Urine Yellow [facility] Appearance Urine Cloudy [facility] PH 6.0 5.0 - 9.0 [facility] Glucose Urine UA Negative Negative mg/dL [facility] Urine Blood Moderate (2+)(A) Negative [facility] Specific [place] - Urine 1.020 1.005 - 1.025 [facility] Urine Protein Negative Neg-Trace mg/dL [facility] Urine Ketones Negative Negative mg/dL [facility] Nitrite Urine Negative Negative [facility] Leukocyte Esterase Urine Negative Negative [facility] RBC Urine 0-2 0 - 2 /HPF [facility] Urine WBC 0-5 0 - 5 /HPF [facility] Urine Squamous Epithelial Cell 11-20 0 - 2 /HPF [facility] Urine Bacteria 1+ None Seen [facility] Hyaline Casts, Urine 0-2 0 - 2 /LPF [facility] 02/21/2025 9:50 AM EDT 02/21/2025 10:46 AM EDT us Generic External Data Provider LAB URINE ORDERAB LES Final Result Performing Organization Address City/State/[facility] Co de Phone Number [facility] [address] [place] [address] [phone] documented in this encounter Visit Diagnoses Not on filedocumented in this encounter Additional Health Concerns Assessment Noted Time PHQ-9 Depression Total Score: 10 025 10:05 AM EDT documented as of this encounter Care Teams Checker Relationship Specialty Start Date End Date Darcie Escalante MD [address] [place] [phone] PCP - General Internal Medicine 03/17/23 documented as of this encounter
--- OUTSIDE RECORDS SUMMARY | 2025-02-22 07:52 | XMS_ITS | Encounter Summary ---
Author Organization [employer] Address [address] [place] [address] [address] [place] [address] Care Team Providers Care Stockbroker Name Role Phone Darcie Escalante MD Primary Care Pro vider Reason for Visit * Reason Comments Med Refill Encounter Details Date Type Department Care Team ([facility] st Contact Info) Description 07/05/2024 Refill [facility] MED[facility]INE [address] [place] [address] Darcie Escalante MD [address] [place] [address] Social History Tobacco Use Types Packs/Day Years [...] documented as of this encounter Care Teams Stockbroker Relationship Specialty Start Date End Date Darcie Escalante MD [address] [place] [id number] PCP - General Internal Medicine 03/17/23 documented as of this encounter
--- OUTSIDE RECORDS SUMMARY | 2025-02-22 07:52 | XMS_ITS | Encounter Summary ---
Author Organization [employer] Address [address] [place] [address] [address] [place] [address] Care Team Providers Care Subway Operator Name Role Phone Darcie Escalante MD Primary Care Pro vider Reason for Visit * Reason Onset Date Comments Med Refill 10/04/2023 Encounter Details Date Type Department Care Team ([facility] st Contact Info) Description 10/04/2023 Refill [facility] MED[facility]INE [address] [place], [place] [phone] Darcie Escalante MD [address] [place] [address] Social History Tobacco Use Types Packs/Day Years [...] documented as of this encounter Care Teams Subway Operator Relationship Specialty Start Date End Date Darcie Escalante MD [address] [place] [id number] PCP - General Internal Medicine 03/17/23 documented as of this encounter
--- OUTSIDE RECORDS SUMMARY | 2025-02-22 07:52 | XMS_ITS | Encounter Summary ---
Author Organization [employer] Address [address] [place] [address] 7 [place] [address] Care Team Providers Care Dimension Specification Inspector Name Role Phone Darcie Escalante MD Primary Care Pro vider Reason for Visit * Reason Onset Date Comments Med Refill 02/07/2024 Encounter Details Date Type Department Care Team ([facility] st Contact Info) Description 02/07/2024 Refill [facility] MEDICINE [address] [place], [place] [phone] Darcie Escalante MD [address] [place] [address] Social History Tobacco Use Types Packs/Day Years [...] documented as of this encounter Care Teams Dimension Specification Inspector Relationship Specialty Start Date End Date Darcie Escalante MD [address] [place] [id number] PCP - General Internal Medicine 03/17/23 documented as of this encounter
--- NOTE | 2025-02-22 08:05 | A.OFFVIS_ITS ---
Vital Signs 02/22/25 08:09 Height 5 ft 2 in Weight 173 lb 1.006 oz BMI 31.7 BP 115/80 Blood Pressure Location Rt brachial Position Sitting Respiration 16 Pulse 83 Pulse Source Pulse Oximeter Pulse Oximetry (%) 98 Oxygen Delivery Method Room Air Intake Visit Reasons: follow up Intake Note: Patient presents for follow up. 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 At that time she had some mild worsening of her rash but has since seen a superintendent seed mill and is currently using topical betamethasone with improvement. Today, she is overall doing well Rashes improved Rheumatologic History: Patient presented 07/25/2024 with facial rash that started in the summer of 2021. She 1st sought medical attention in October of 2022. At that time she saw a superintendent seed mill who gave her a prednisone taper (40 mg then 30 mg then 20 mg then 10 mg and 5 mg then stop), performed a skin biopsy and gave her topical creams. Patient noted good relief from the steroids however after the steroids were co mpleted the rash returned. She has tried Plaquenil for 3 months without improvement then she tried topical tacrolimus for 3 months without improvement then she tried topical steroids without improvement. She then sought a 2nd opinion and had another biopsy which confirmed subacute cutaneous lupus. She was given a trial of Opzulara which helped however this was denied by her insurance. She also now is complaining of mild joint stiffness lasting about 15 minutes in the morning however denies joint swelling. Denies frothy urine, oral/nasal ulcers. She does report that she feels that her hair is thinning but denies any rash or lesions to her scalp. Family history significant for sister with rheumatoid arthritis. No family member has lupus. She has 2 children. Had 1 miscarriage at 9 weeks. Both pregnancies were to term no preeclampsia. No history of VTE or PE. Current Rheumatology Medication(s): Saphenlo 300mg IV every month Plaquenil 200mg bid [facility] Medical History (Updated 11/30/24 @ 10:54 by Clare Aguillon MD) Knee pain, bilateral Bilateral carpal tunnel syndrome Long-term use of Plaquenil Subacute cutaneous lupus erythematosus Abnormal echocardiogram Discoid lupus Hypertension Anterior leg pain Insomnia Anxiety and depression Tobacco use Migraine Dermatitis No pertinent past medical history Surgical History Hx of section Family History Mother Hypertension Diabetes High cholesterol Father Diabetes High cholesterol Hypertension Brother High cholesterol Sister No problems noted. Daughter No problems noted. Son Chromosome 7q11.23 duplication syndrome Social History Alcohol intake: never Patient Tobacco Use Status: Former Tobacco user Tobacco use type: Smokeless Tobacco Review of Systems Const Details: Review of Systems Constitutional: Denies fever, chills, weight loss ENT: Denies vision changes, eye pain or eye redness, dental caries, dry mouth GI: Denies nausea, vomiting, diarrhea, abdominal pain, change in BM Pulm: Denies SOB, CHIRINOS, hemoptysis, wheezing Cards: Denies chest pain, palpitations Skin: Denies Raynaud's, rash, nail changes, photosensitivity, JEWISH HISTORY PROFESSOR: Denies headaches, weakness, paresthesias, recurrent falls MSK: as per HPI All other systems reviewed and are unremarkable except noted above Physical Exam Vital Signs: Last Vital Signs Pulse 83 02/22/25 08:09 Resp 16 02/22/25 08:09 BP 115/80 02/22/25 08:09 Pulse Ox 98 02/22/25 08:09 Oxygen Delivery Method Room Air 02/22/25 08:09 BMI result Body Mass Index 31.7 Vital signs reviewed Physical Examination CONSTITUITIONAL Patient alert and cooperative. Well appearing and in no apparent painful distress HEENT Conjunctiva and sclera clear. ?Pupils equal round and reactive to light. ?No lymphadenopathy. ? CHEST/RESPIRATORY SYSTEM Normal respiratory effort and able to speak in complete sentences. ?Clear to auscultation bilaterally. ?No crackles, rales, rhonchi, wheezes heard. CARDIAC SYSTEM Regular rate and rhythm. ?S1 and S2 heard no murmurs. 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 No deformities noted. ?No synovitis noted to the MCPs, PIPs or DIPs. ?No tenderness to palpation of these joints. Wrists: ?Full range of motion at the wrists without pain. ?No tenderness to palpation or synovitis noted to the wrists. Elbows: Full range of motion without pain. No tenderness, weakness, swelling, increased warmth or erythema. Shoulders: Full range of motion without pain. No tenderness, weakness, swelling, increased warmth or erythema. Hips: Full range of motion without pain. Hip bursa: No tenderness to palpation Knees: ?Full range of motion. ?No tenderness, swelling, increased warmth or erythema.?Bilateral crepitations felt Ankles: Full range of motion. ?No tenderness, swelling, increased warmth or erythema.? Feet: ?Negative squeeze test. ?No tenderness to palpation or swelling of the MTPs. Tender points:?No tenderness to palpation of the bilateral trapezius, supraspinatus, greater trochanters, anterior costochondral junctions, bilateral gluteal areas, bilateral suboccipital muscle insertions SKIN Skin intact without rashes. Erythema noted to the brow and cheeks improved Results Reviewed Results Reviewed: Laboratory Tests 02/21/25 09:56 WBC 6.5 RBC 4.30 Hgb 11.8 L Hct 35.4 L Plt Count 188 ESR 16 Sodium 138 Potassium 4.1 Carbon Dioxide 25 BUN 16 02/21/25 09:56 Creatinine 0.77 AST 15 ALT 14 Alkaline Phosphatase 55 C-Reactive Protein 0.10 Urine tests 02/21/25 09:50 Urine Color Yellow Urine Appearance Cloudy Urine Protein Negative Urine Glucose (UA) Negative Urine Blood Moderate (2+) H Urine RBC 0-2 U Random Total Protein < 7 Immunology Labs 12/03/24 02/21/25 09:05 09:56 Double Strand DNA Ab <1 Pending Complement C3 178 Pending Complement C4 41 Pending Infectious serologies 08/07/24 08:40 T.pallidum Ab (EIA) Nonreactive Hep Bs Antigen Negative Hep Bs Antibody REACTIVE Hep B Core Total Ab Nonreactive Hepatitis C Ab (EIA) Nonreactive HIV 1&2 Ab/P24 Ag 4thGn Nonreactive Assessment & Plan Assessment & Plan (1) Subacute cutaneous lupus erythematosus: Comment: Saphnelo 07/2024 Plaquenil 08/2024 Code(s): L93.1 - Subacute cutaneous lupus erythematosus Category: Medical Plan: #Subacute cutaneous lupus Patient is a 40-year-old female with subacute cutaneous lupus here today for follow up. Skin doing well on her current regimen. Plan - Saphnelo 300mg IV monthly - Plaquenil 200mg bid - Topical betamethasone from derm - discussed sunscreen and avoiding sun exposure during the upcoming summer months - RTC 4 months - Labs prior to visit: CBC, CMP, ESR, CRP, C3, C4, dsDNA, UA, UPC (2) Hematuria: Code(s): R31.9 - Hematuria, unspecified Qualifiers: Hematuria type: unspecified type Qualified Code(s): R31.9 - Hematuria, unspecified Plan: #Hematuria Patient with 2+ blood in urine but no RBCs. Concern for hemoglobin or myoglobinuria. We will monitor (3) Knee pain, bilateral: Code(s): M25.561 - Pain in right knee; M25.562 - Pain in left knee Category: Medical Qualifiers: Chronicity: chronic Qualified Code(s): M25.561 - Pain in right knee; M25.562 - Pain in left knee; G89.29 - Other chronic pain Plan: #Knee Pain History and exam consistent with findings of early OA Plan - Celebrex 200mg bid for pain control - PT Referral (4) Bilateral carpal tunnel syndrome: Code(s): G56.03 - Carpal tunnel syndrome, bilateral upper limbs Category: Medical Plan: #Hand Pain with numbness Exam and history suggests carpal tunnel Though EMG was negative still likely that she has early disease. Recommend splinting Plan - CTS splint - Celebrex for pain (5) Long-term use of Plaquenil: Code(s): Z79.899 - Other exterminator (current) drug therapy Category: Medical Plan: #Long-term Use of Hydroxychloroquine Discussed with patient the risks and benefits of hydroxychloroquine in managing the rheumatic condition Benefits include: - Reduced pain, reduce mortality, maintenance of remission and reduction of flares Risks include: - GI upset, skin hyperpigmentation, retinal toxicity (especially after more than 5 years of use), myopathy Advised yearly ophthalmology visits (6) Encounter for monitoring of belimumab therapy: Code(s): Z51.81 - Encounter for therapeutic drug level monitoring; Z79.620 - skilled nursing (current) use of immunosuppressive biologic Plan: #Long-term Use of Anifrolumab Discussed with patient the risks and benefits of and anifrolumab for managing there rheumatic condition. Benefits include: Remission of disease, improved pain, improved mobility, improved rash gnancy Risks include: Infusion reactions, increased risk of infection, potential for malignancy Plan I spent 30 minutes reviewing the record and labs, seeing the patient, discussing the treatment plan and documenting in the medical record Orders: Orders Complement C3 4 Months L93.1 - Subacute cutaneous lupus erythematosus Complement C4 4 Months L93.1 - Subacute cutaneous lupus erythematosus Comprehensive Met. Panel 4 Months L93.1 - Subacute cutaneous lupus erythematosus Protein Creatinine Ratio, Ur 4 Months L93.1 - Subacute cutaneous lupus erythematosus Urine Hemoglobin 4 Months L93.1 - Subacute cutaneous lupus erythematosus Complete Blood Count Auto Diff 4 Months L93.1 - Subacute cutaneous lupus erythematosus C Reactive Protein 4 Months L93.1 - Subacute cutaneous lupus erythematosus Erythrocyte Sedimentation Rate 4 Months L93.1 - Subacute cutaneous lupus erythematosus Anti DNA DS Antibody 4 Months L93.1 - Subacute cutaneous lupus erythematosus Myoglobin, Quant. Random Urine 4 Months L93.1 - Subacute cutaneous lupus erythematosus UA w Microscopic 4 Months L93.1 - Subacute cutaneous lupus erythematosus Coding Level of Care Code Est Pt Level 4 (39734) Complex EM visit Add On G2211 Diagnoses Subacute cutaneous lupus erythematosus L93.1 Hematuria, unspecified type R31.9 Hematuria type: unspecified type Chronic pain of both knees M25.561; M25.562; G89.29 Chronicity: chronic Bilateral carpal tunnel syndrome G56.03 Long-term use of Plaquenil Z79.899 Encounter for monitoring of belimumab therapy Z51.81; Z79.620
[2025-02-22 08:09] VITALS: BP 115/80; PULSE 83; RESP 16; O2SAT 98; BMI 31.7
== END 2025-02-22 08:34 | disposition home or self-care (01) ==
LOC: HO.RHE 07:48
PROVIDERS: PCP Student in an Organized Health Care Education/Training Program; Visit Provider Student in an Organized Health Care Education/Training Program
DX: L93.1 Subacute cutaneous lupus erythematosus (principal); R31.9 Hematuria, unspecified; M25.561 Pain in right knee; M25.562 Pain in left knee; G89.29 Other chronic pain; G56.03 Carpal tunnel syndrome, bilateral upper limbs; Z79.899 Other long term (current) drug therapy; Z51.81 Encounter for therapeutic drug level monitoring; Z79.620 Long term (current) use of immunosuppressive biologic
CPT/HCPCS: 99214

== ENCOUNTER → 2025-02-22 07:48 | Outpatient (BNVA) | payer MEDICAID, SELFPAY | PROVIDERS: PCP Student in an Organized Health Care Education/Training Program; Visit Provider Student in an Organized Health Care Education/Training Program | DX: L93.1 Subacute cutaneous lupus erythematosus (principal); R31.9 Hematuria, unspecified; M25.561 Pain in right knee; M25.562 Pain in left knee; G56.03 Carpal tunnel syndrome, bilateral upper limbs; G89.29 Other chronic pain; Z51.81 Encounter for therapeutic drug level monitoring; Z79.620 Long term (current) use of immunosuppressive biologic; Z79.899 Other long term (current) drug therapy | CPT/HCPCS: 99212 ==

== ENCOUNTER 2025-06-18 09:40 | Outpatient (REF) | payer MEDICAID, SELFPAY ==
[2025-06-18 10:16] LABS: MANUAL DIFF FLAG NO
--- OUTSIDE RECORDS SUMMARY | 2025-06-18 10:20 | XMS_ITS | Encounter Summary ---
Author Organization [employer] Address [address] [facility] [address] [place] [address] Care Team Providers Care Arts And Crafts Teacher Name Role Phone Darcie Escalante MD Primary Care Pro vider Encounter Details Date Type Department Care Team ([facility] st Contact Info) Description 01/15/2025 Orders Only [facility] [address] [place] [address] Provider, MD Sindi Social History Tobacco Use [...] Care Team (Late st Contact Info) Description 06/21/2025 9:00 AM EDT Office Visit [facility] MEDICINE [address] [place] [phone] Darcie Escalante MD [address] [place] [phone] documented as of this encounter Procedures Procedure Name Priority Date/Time Associated Diagnosis Comments HM PAP/HPV Routine 11/15/2022 10:55 AM EST documented in this encounter Results * HM PAP/HPV (11/15/2022 10:55 AM EST) Historical Provider HEALTH MAINTENANCE Final Result documented in this encounter Visit Diagnoses Not on filedocumented in this encounter Additional Health Concerns Assessment Noted Time PHQ-9 Depression Total Score: 9 06/19/20 24 10:11 AM EDT documented as of this encounter Care Teams Arts And Crafts Teacher Relationship Specialty Start Date End Date Darcie Escalante MD [address] [place] [id number] PCP - General Internal Medicine 03/17/23 documented as of this encounter
--- OUTSIDE RECORDS SUMMARY | 2025-06-18 10:20 | XMS_ITS | Encounter Summary ---
Author Organization [employer] Address [address] [place] [address] Care Team Providers Care Roll Trucker Name Role Phone Darcie Escalante MD Primary Care Pro vider Reason for Visit * Reason Onset Date Comments Med Refill 02/07/2024 Encounter Details Date Type Department Care Team ([facility] st Contact Info) Description 02/07/2024 Refill [facility] MEDICINE [address] [place] [address] Darcie Escalante MD [address] [place] [address] Social History Tobacco Use Types Packs/Day Years [...] Description 06/21/2025 9:00 AM EDT Office Visit [facility] MEDICINE [address] [place] [address] Darcie Escalante MD [address] [place] [phone] documented as of this encounter Visit Diagnoses Not on filedocumented in this encounter Additional Health Concerns Assessment Noted Time PHQ-9 Depression Total Score: 8 04/06/20 23 10:44 AM EDT documented as of this encounter Care Teams Roll Trucker Relationship Specialty Start Date End Date Darcie Escalante MD [address] [place] [id number] PCP - General Internal Medicine 03/17/23 documented as of this encounter
--- OUTSIDE RECORDS SUMMARY | 2025-06-18 10:20 | XMS_ITS | Clinical Summary ---
Author Organization [facility] Address [address] [place] [address] Phone Care Team Providers Care Inspector Aluminum Boat Name Role Phone Sher Perkins MD Primary Care Provider Allergies No known active allergies Medications cetirizine (ZYRTEC) 10 MG tablet 08/18/2021 Active clindamycin (CLEOCIN) 300 MG capsule 08/24/2021 Active ibuprofen (ADVIL,MOTRIN) 600 MG tablet 08/24/2021 Active oxyCODONE-acetamin ophen (PERCOCET) 5-325 mg per tablet 08/24/2021 Active Immunizations No known immunizations Social History Tobacco Use Types Packs/Day Years Used Date Smoking Tobacco: Every Day Cigarettes Smokeless Tobacco: Never Alcohol Use Standard Drinks/Week Comments Not Currently 0 (1 standard drink = 0.6 oz pur e alcohol) Education Answer Date Recorded Are you interested in more education? Not on nataliia e 02/19/2023 Are you concerned about learning? Not on file 02/19/2023 No 02/19/2023 No 02/19/2023 Digital Access Answer Date Recorded No 03/20/2023 No 03/20/2023 No 03/20/2023 Reliable internet access at home? Not on file 03/20/2023 Device with a working camera? Not on file Comments Unknown Sex and Gender Information Value Date Recorded Sex Assigned at Female 08/19/2022 11:30 AM EDT Legal Sex Female 11:44 AM EST Gender Identity Female 08/19/2022 11:30 AM EDT Sexual Orientation Not on file Last Filed Vital Signs Vital Sign Reading Time Taken Comments Blood Pressure 136/86 08/19/2022 11:27 AM EDT Pulse 74 08/19/2022 11:27 AM EDT Temperature 37.2 C (99 F) 08/19/2022 11:27 AM EDT Respiratory Rate 18 08/19/2022 11:27 AM EDT Oxygen Saturation 98% 08/19/2022 11:27 AM EDT Inhaled Oxygen Concentration - - Weight 83.9 kg (185 lb) 08/19/2022 11:27 AM EDT Height 157.5 cm (5' 2 ) 08/19/2022 11:27 AM EDT Body Mass Index 33.84 08/19/2022 11:27 AM EDT Plan of Treatment Health Maintenance Due Date Last Done Comments DEPRESSION SCREENING 1999 SMOKING Hx and SMOKELESS TOBACCO SCREENING 01/11/2000 HEPATITIS C SCREENING 2005 HIV ONE-TIME SCREENING (18-6 5 YEARS) 2005 PNEUMOCOCCAL VACCINES (0-49 years) (1 of 2 - PCV) 2006 PAP SMEAR 01/11/2008 SCREENING FOR DIABETES 2022 COVID-19 VACCINE (4 - 2023-2 5 season) 2024 09/02/2021, 12/19/2020, 11/27/2020 Adult Td,Tdap Booster 07/03/2028 07/03/2018 HEPATITIS A VACCINES Aged Out No long er eligible based on patient's age to complete this topic HIB VACCINES Aged Out No longer eligi ble based on patient's age to complete this topic MENINGOCOCCAL VACCINES (ACWY) Aged Out No longer eligible based on patient's age to complete this topic MENINGOCOCCAL VACCINES (B) Aged Out N o longer eligible based on patient's age to complete this topic Medical Devices Not on file Insurance [facility] [place] [address] [address] [address] [employer] [facility] [employer] Res[employer] [place] [address] [address] [address] [employer] [facility] [employer] Care Teams Inspector Aluminum Boat Relationship Specialty Start Date End Date Sher Perkins MD [address] [place] [address] PCP - General Internal Medicine 03/29/22 Additional Source Comments The information contained in this document represents components of the legal health record. It is not the complete legal health record.[facility]
--- OUTSIDE RECORDS SUMMARY | 2025-06-18 10:20 | XMS_ITS | Encounter Summary ---
Author Organization [employer] Address [address] [place] [address] Care Team Providers Care Drill Press Set Up Operator Name Role Phone Darcie Escalante MD Primary Care Pro vider Encounter Details Date Type Department Care Team (Latest Contact Info) Description 01/15/2021 Abstract [facility] CONVERSIONS Dental, Provider, DDS Social History [...] Care Team ( st Contact Info) Description 06/21/2025 9:00 AM EDT Office Visit [facility] MEDICINE [address] [place] [address] Darcie Escalante MD [address] [place] [address] documented as of this encounter Visit Diagnoses Not on filedocumented in this encounter Care Teams Drill Press Set Up Operator Relationship Specialty Start Date End Date Darcie Escalante MD [address] [place] [address] PCP - General Internal Medicine 03/17/23 documented as of this encounter
--- OUTSIDE RECORDS SUMMARY | 2025-06-18 10:20 | XMS_ITS | Encounter Summary ---
Author Organization [employer] Address [address] [place] [address] Care Team Providers Care Air Pumper Name Role Phone Darcie Escalante MD Primary Care Pro vider Reason for Visit * Reason Onset Date Comments Med Refill 04/03/2025 Encounter Details Date Type Department Care Team ([facility] st Contact Info) Description 04/03/2025 Refill [facility] [address] [place] [address] Darcie Escalante MD [address] [place] [address] Social History Tobacco Use Types Packs/Day Years [...] Description 06/21/2025 9:00 AM EDT Office Visit [facility] [address] [place] [address] [phone] Darcie Escalante MD [address] [place] [phone] documented as of this encounter Visit Diagnoses Not on filedocumented in this encounter Additional Health Concerns Assessment Noted Time PHQ-9 Depression Total Score: 10 025 10:05 AM EDT documented as of this encounter Care Teams Air Pumper Relationship Specialty Start Date End Date Darcie Escalante MD [address] [place] [address] [phone] PCP - General Internal Medicine 03/17/23 documented as of this encounter
--- OUTSIDE RECORDS SUMMARY | 2025-06-18 10:20 | XMS_ITS | Clinical Summary ---
Author Organization [facility] [address] [place] [address] [place] [phone] Phone Care Team Providers Care Sawdust Machine Operator Name Role Phone Juana Kim MD Primary Care Prov ider Allergies No known active allergies Medications rosuvastatin (CRESTOR) 5 mg tablet Take 1 tablet (5 mg total) by mouth 1 (one) time each day. 11/17/19 23 Active lisinopriL (PRINIVIL,ZESTRI L) 10 mg tablet Take 1 tablet (10 mg total) by mouth 1 (one) time each day. 08/07/20 24 Active hydroxychloroqui ne (PLAQUENIL) 200 mg tablet 04/09/20 24 Active cetirizine (ZyrTEC) 10 mg tablet Take 1 tablet (10 mg total) by mouth. 07/21/20 21 Active Zepbound 10 mg/0.5 mL injection INJECT ONE PEN (=10MG) SUBCUTANEOUSLY ONCE A WEEK DIRECTED 03/11/20 25 Active tacrolimus (PROTOPIC) 0.1 % ointment APPLY TO THE FACE TWICE DAILY NEEDED FOR flares, ALTERNATE WITH topical steroids 11/28/19 25 Active Zoloft 50 mg tablet 10/09/20 23 Active celecoxib (CeleBREX) 200 mg capsule 04/09/20 24 Active betamethasone dipropionate (DIPROSONE) 0.05 % ointment APPLY TO THE AFFECTED AREA(S) ON FACE, TWICE DAILY NEEDED FOR FLARE. DECREASE USE SYMPTOMS IMPROVE 04/04/20 25 Active traZODone (DESYREL) 50 mg tablet Take 0.5 tablets (25 mg total) by mouth at bedtime. 03/11/20 25 Active Active Problems Problem Noted Date Diagnosed Date Depression 10/11/2024 Hyperlipidemia 10/11/2024 Clinical diagnosis of COVID-19 02/08/2022 Overview (10/11/2024): Patient attached results to [employer] message. Fatty liver disease, nonalcoholic 10/28/2020 Transaminitis 09/09/2020 Overview (10/11/2024): Liver sono shows hepatic steatosis Obesity (BMI 30-39.9) 11/28/2019 Allergic rhinitis 2018 Encounters Date Type Department Care Team Description 04/15/2025 9:14 AM EDT - 04/15/2025 11:59 PM EDT Hospital Encounter Radiology Department - [address] [phone] Bulky or enlarged uterus Discharge Disposition: Home or Self Care 04/10/2025 9:45 AM EDT Office Visit Obstetrics and Gynecology - [address] [phone] Caitie Reyes, BRENNAN Encounter for gynecological examination without abnormal finding (Primary Dx); Screen for STD (sexually transmitted disease); Bulky or enlarged uterus from Last 3 Months Immunizations Name Administration Dates Next Due Influenza [...] Breast cancer Mother Diabetes Mother Depression Sister Cervical cancer Neg Hx Ovarian cancer Neg Hx Uterine cancer Neg Hx Relation Name Status Comments Father Alive Maternal Grandfather Maternal Grandmother Mother Alive Paternal Grandfather Paternal Grandmother Sister Social History Tobacco Use Types Packs/Day Years Used Date Smoking Tobacco: Former Cigarettes Smokeless Tobacco: Current Comments:Vaping contains sharonda otine Alcohol Use Standard Drinks/Week Comments No 0 (1 standard drink = 0.6 oz pur e alcohol) Comments No Sex and Gender Information Value Date Recorded Sex Assigned at Not on file Legal Sex Female 1:56 PM EST Gender Identity Not on file Sexual Orientation Not on file Obstetrics History * This document contains information received from the source organization and may not represent a complete record from that organization. Para Term AB IAB SAB Ectopic Multiple Livin g Live Births 3 0 0 0 0 0 2 2 Date Outcome GA Total Labor Labor/2nd/3rd Weight Sex Type Anes PTL Tracy A1 A5 Name Clin 2008 M CS-Un spec Living 2011 F CS-Un spec Living Last Filed Vital Signs Vital Sign Reading Time Taken Comments Blood Pressure 121/78 04/10/2025 9:52 AM EDT Pulse 78 04/10/2025 9:52 AM EDT Temperature - - Respiratory Rate 15 04/10/2025 9:52 AM EDT Oxygen Saturation - - Inhaled Oxygen Concentration - - Weight 74.6 kg (164 lb 6.4 oz) 04/10/2025 9:52 A M EDT Height 157.5 cm (5' 2 ) 04/10/2025 9:52 AM EDT Body Mass Index 30.07 04/10/2025 9:52 AM EDT Plan of Treatment Upcoming Encounters Date Type Department Care Team (Late st Contact Info) Description 06/26/2025 10:30 AM EDT Appointment Radiology Department [address] [phone] Health Maintenance Due Date Last Done Comments Hepatitis B Vaccines (1 of 3 - 19+ 3-dose series) 2006 Pneumococcal Vaccine: Pediatrics (0 to 5 Years) and At-Risk Patients (6 to 49 Years) (1 of 2 - PCV) 2006 Social Influencers of Health Screening 10/02/2022 COVID-19 Vaccine (6 - Pfizer risk season) 2025 08/07/2024, 01/20/2023, 09/02/2021, Additional history exists Influenza Vaccine (#1) 2025 , 09/14/2022, 07/21/2021, Additional history exists Hypertension/CHF/CAD Annual BMP Blood Test 02/21/2026 02/21/2025 Cervical Cancer Screening: HPV 11/24/2027 11/24/2022 DTaP,Tdap,and Td Vaccines (2 - Td or Tdap) 07/03/2028 07/03/2018 Cholesterol Screening (Lipid Panel) 08/07/2029 08/07/2024, 05/03/2022 Depression Screening Completed 04/09/2025 HIV Screening Completed 04/10/2025, 07/24, 11/15/2022 Hepatitis C Screening Completed 04/10/2025 , 08/07/2024, 11/15/2022 HIB Vaccines Aged Out No longer [...] Procedure Name Priority Date/Time Associated Diagnosis Comments US PELVIS NON OB COMPLETE W TRANSVAGINAL Routine 04/15/2025 9:44 AM EDT Bulky or enlarged uterus HIV 1, 2 ANTIBODY, P24 ANTIGEN WITH REFLEX TO DIFFERENTIATION Routine 04/10/2025 10:51 AM EDT Screen for STD (sexually transmitted disease) HEPATITIS B SURFACE ANTIGEN WITH CONFIRMATION Routine 04/10/2025 10:51 AM EDT Screen for STD (sexually transmitted disease) TREPONEMA PALLIDUM ANTIBODY WITH REFLEX TO RPR AND PARTICLE AGGLUTINATION Routine 04/10/2025 10:51 AM EDT Screen for STD (sexually transmitted disease) HEPATITIS C ANTIBODY Routine 04/10/2025 10:51 AM EDT Screen for STD (sexually transmitted disease) TRICHOMONAS VAGINALIS ANTIGEN Routine 04/10/2025 10:39 AM EDT Screen for STD (sexually transmitted disease) CHLAMYDIA TRACHOMATIS AND NEISSERIA GONORRHOEAE PCR Routine 04/10/2025 10:39 AM EDT Screen for STD (sexually transmitted disease) HM HPV Routine 11/24/2022 LIPID PANEL Routine 05/03/2022 from Last 3 Months or Most Recently Relevant to Health Maintenance Results * US Pelvis Non OB Complete w Transvaginal (04/15/2025 9:44 AM EDT) Anatomical Region Laterality Modality Body, Pelvis Ultrasound 04/15/2025 11:3 4 AM EDT Impressions 04/15/2025 11:40 AM EDT 1. Mildly enlarged uterus (volume of 141.3 cm3). 2. Enlarged bilateral ovaries by presence of simple appearing cysts. -------- FINAL REPORT -------- Dictated By: Bret Luna Dictated Date: 04/15/2025 11:34 ET Assigned Physician: Bret Luna Reviewed and Electronically Signed By: Bret Luna Signed Date: 04/15/2025 11:40 ET Workstation ID: [id number] Transcribed By: Self Edit Transcribed Date: 04/15/2025 11:34 ET Narrative 04/15/2025 11:40 AM EDT EXAM(s): US PELVIS NON OB COMPLETE W TRANSVAGINAL COMPARISON: None HISTORY: Bulky uterus FINDINGS: UTERUS: The uterus is mildly enlarged, measures 9.9 x 4.4 x 6.2 cm, volume of 141.3 cm3, and demonstrates heterogeneous myometrial echotexture. Focal hypoechoic area in the posterior body measuring 1.9 x 1.5 x 2.1 cm likely represents uterine leiomyoma. The endometrial echocomplex measures 1.2 cm in thickness. RIGHT OVARY: 14.2 x 8.8 x 13.8 cm, volume of 902.9 cm3. Enlarged by presence of 13.2 x 9.1 x 12.3 cm simple appearing cyst. Normal arterial and venous flow is demonstrated with color and spectral Doppler. LEFT OVARY: 12.0 x 8.5 x 11.8 cm, volume of 630.2 cm3. Enlarged by presence of 10.3 x 8.0 x 9.8 cm simple appearing cyst. Normal arterial and venous flow is demonstrated with color and spectral Doppler. PELVIS: No free fluid. Procedure Note Bret Luna MD - 04/15/2025 EXAM(s): US PELVIS NON OB COMPLETE W TRANSVAGINAL COMPARISON: None HISTORY: Bulky uterus FINDINGS: UTERUS: The uterus is mildly enlarged, measures 9.9 x 4.4 x 6.2 cm, volumeof 141.3 cm3, and demonstrates heterogeneous myometrial echotexture. Focalhypoechoic area in the posterior body measuring 1.9 x 1.5 x 2.1 cm likelyrepresents uterine leiomyoma. The endometrial echocomplex measures 1.2 cmin thickness. RIGHT OVARY: 14.2 x 8.8 x 13.8 cm, volume of 902.9 cm3. Enlarged bypresence of 13.2 x 9.1 x 12.3 cm simple appearing cyst. Normal arterialand venous flow is demonstrated with color and spectral Doppler. LEFT OVARY: 12.0 x 8.5 x 11.8 cm, volume of 630.2 cm3. Enlarged bypresence of 10.3 x 8.0 x 9.8 cm simple appearing cyst. Normal arterial andvenous flow is demonstrated with color and spectral Doppler. PELVIS: No free fluid. IMPRESSION: 1. Mildly enlarged uterus (volume of 141.3 cm3). 2. Enlarged bilateral ovaries by presence of simple appearing cysts. -------- FINAL REPORT -------- Dictated By: Bret Luna Dictated Date: 04/15/2025 11:34 ET Assigned Physician: Bret Luna Reviewed and Electronically Signed By: Bret Luna Signed Date: 04/15/2025 11:40 ET Workstation ID: [id number] Transcribed By: Self Edit Transcribed Date: 04/15/2025 11:34 ET Caitie Reyes CNM IMG US PROCEDURES Final Result * Hepatitis C antibody (04/10/2025 10:51 AM EDT) Hepatitis C Antibody Negative Negative LAB CHEMISTRY METHOD 04/10/2025 3:36 PM EDT [facility] Blood Venous blood specimen / Unknown Venipuncture / Unknown 04/10/2025 10:51 AM EDT 04/10/2025 10:51 AM EDT Caitie Reyes CNM LAB BLOOD ORDERABLES Final Res ult [facility] [address] [place] [address], * HIV 1,2 antibody, p24 antigen with reflex to differentiation (04/10/2025 10:51 AM EDT) HIV Combo AB/AG Negative Negative LAB CHEMISTRY METHOD 04/10/2025 3:36 PM EDT [facility] Blood Venous blood specimen / Unknown Venipuncture / Unknown 04/10/2025 10:51 AM EDT 04/10/2025 10:51 AM EDT Narrative [facility] - 04/10/2025 3:36 PM EDT This assay is a 4th generation assay allowing for earlier detection of HIV infection by detecting the presence of the HIV-1 p24 antigen as well as the traditional antibodies to HIV type 1 (including group O) and type 2. Use of a 4th generation assay is the current CDC recommendation for HIV screening. Caitie Reyes [facility] BLOOD ORDERABLES Final Res ult Performing Organization Address [facility]/ZIP Co de Phone Number [facility] [address] [place] [address], [place] [phone] * Hepatitis B surface antigen with reflex to confirmation (04/10/2025 10:51 AM EDT) Hepatitis B Surface Ag Negative Negative LAB CHEMISTRY METHOD 04/10/2025 3:07 PM EDT [facility] Blood Venous blood specimen / Unknown Venipuncture / Unknown 04/10/2025 10:51 AM EDT 04/10/2025 10:51 AM EDT Narrative [facility] - 04/10/2025 3:07 PM EDT Over the counter supplements containing high doses of biotin may interfere with this assay. If interference is suspected, patients shoud be retested after refraining from biotin supplements for 72 hours. Caitie Reyes [facility] BLOOD ORDERABLES Final Res ult Performing Organization Address [facility] de Phone Number [facility] [address] [place] [address], [place] [phone] * Treponema pallidum antibody with reflex to RPR and particle agglutination (04/10/2025 10:51 AM EDT) [facility] T. Pallidum Antibodies Negative Negative LAB CHEMISTRY METHOD 04/10/2025 4:40 PM EDT [facility] Blood Venous blood specimen / Unknown Venipuncture / Unknown 04/10/2025 10:51 AM EDT 04/10/2025 10:51 AM EDT Caitie Reyes [facility] LAB BLOOD ORDERABLES Final Res ult Performing Organization Address City/[facility]/ZIP Co de Phone Number [facility] [address] [place] [address], [place] [phone] * Trichomonas vaginalis antigen (04/10/2025 10:39 AM EDT) [facility] Trichomonas vaginalis Negative Negative 04/10/2025 7:14 PM EDT [facility] Swab Vaginal structure / Unknown Non-blood Collection / Unknown 04/10/2025 10:39 AM EDT 04/10/2025 10:39 AM EDT us Caitie Reyes CNM LAB MICROBIOLOGY - GENERAL ORD ERABLES Final Result [facility] [address] [place] [address], [place] [phone] * Chlamydia trachomatis and Neisseria gonorrhoeae molecular study (04/10/2025 10:39 AM EDT) [facility] Neisseria gonorrhoeae PCR Negative Negative LAB MOLECULAR DIAGNOSTICS METHOD 04/11/2025 8:47 AM EDT [facility] Chlamydia trachomatis PCR Negative Negative LAB MOLECULAR DIAGNOSTICS METHOD 04/11/2025 8:47 AM EDT [facility] Swab Cervix uteri structure / Unknown Non-blood Collection / Unknown 04/10/2025 10:39 AM EDT 04/10/2025 10:39 AM EDT Caitie Reyes CNM LAB MICROBIOLOGY - GENERAL ORD ERABLES Final Result [facility] [address] [place] [address], [place] [phone] * Cervical Cancer Screening: HPV (11/24/2022) [facility] Cervical Cancer Screening: HPV abstracted, negative Historical Provider HEALTH MAINTENANCE Final Result * (ABNORMAL) Lipid panel (05/03/2022) LDL/HDL Ratio 7(A) 0 - 4 Triglycerides 247(A) 0 - 150 mg/dL Cholesterol 234(A) 0 - 200 mg/dL HDL 36(A) >=40 mg/dL LDL Cholesterol 149(A) 0 - 100 mg/dL Blood Venous blood specimen / Unknown us Historical Provider LAB BLOOD ORDERABLES Jennifer l Result from Last 3 Months or Most Recently Relevant to Health Maintenance Insurance MEDICAID - [place] Care Teams Sawdust Machine Operator Relationship Specialty Start Date End Date Juana Kim MD [address] [place] [phone] PCP - General Internal Medicine 04/09/25
--- OUTSIDE RECORDS SUMMARY | 2025-06-18 10:20 | XMS_ITS | Encounter Summary ---
Author Organization [employer] Address [address] [place] [address] Care Team Providers Care Hired Worker Name Role Phone Darcie Escalante MD Primary Care Pro vider Reason for Visit * Reason Onset Date Comments Med Refill 10/04/2023 Encounter Details Date Type Department Care Team ([facility] st Contact Info) Description 10/04/2023 Refill [facility] [address] [place] [address] Darcie Escalante MD [address] [place] [address] Social History Tobacco Use Types Packs/Day Years [...] Description 06/21/2025 9:00 AM EDT Office Visit [facility] [address] [place] [address] Darcie Escalante MD [address] [place] [address] documented as of this encounter Visit Diagnoses Not on filedocumented in this encounter Additional Health Concerns Assessment Noted Time PHQ-9 Depression Total Score: 8 04/06/20 23 10:44 AM EDT documented as of this encounter Care Teams Hired Worker Relationship Specialty Start Date End Date Darcie Escalante MD [address] [place] [phone] PCP - General Internal Medicine 03/17/23 documented as of this encounter
--- OUTSIDE RECORDS SUMMARY | 2025-06-18 10:20 | XMS_ITS | Encounter Summary ---
Author Organization [employer] Address [address] [place] [address] Care Team Providers Care Aoc Director Intelligence Officer Name Role Phone Darcie Escalante MD Primary Care Pro vider Encounter Details Date Type Department Care Team (Latest Contact Info) Description 08/28/2019 Abstract [facility] CONVERSIONS [...] Description 06/21/2025 9:00 AM EDT Office Visit [facility] MEDICINE [address] [place] [address] Darcie Escalante MD [address] [place] [address] documented as of this encounter Visit Diagnoses Not on filedocumented in this encounter Care Teams Aoc Director Intelligence Officer Relationship Specialty Start Date End Date Darcie Escalante MD [address] [place], [place] [phone] PCP - General Internal Medicine 03/17/23 documented as of this encounter
--- OUTSIDE RECORDS SUMMARY | 2025-06-18 10:20 | XMS_ITS | Encounter Summary ---
Author Organization [employer] Address [address] [place] [id number] Care Team Providers Care Construction Electrician Name Role Phone Darcie Escalante MD Primary Care Pro vider Reason for Visit * Reason Comments Med Refill Encounter Details Date Type Department Care Team ([facility] st Contact Info) Description 05/27/2025 Refill [facility] [address] [place] [address] Darcie Escalante MD [address] [place] [address] Social History Tobacco Use Types Packs/Day Years [...] encounter Miscellaneous Notes * Telephone Encounter - Darcie Joel MD - 05/28/2025 9:28 PM EDT Pxed next dose documented in this encounter Plan of Treatment Upcoming Encounters Date Type Department Care Team (Late st Contact Info) Description 06/21/2025 9:00 AM EDT Office Visit [facility] MEDICINE [address] [place] [phone] Darcie Escalante MD [address] [place] [phone] documented as of this encounter Visit Diagnoses Not on filedocumented in this encounter Additional Health Concerns Assessment Noted Time PHQ-9 Depression Total Score: 10 025 10:05 AM EDT documented as of this encounter Care Teams Construction Electrician Relationship Specialty Start Date End Date Darcie Escalante MD [address] [place] [phone] PCP - General Internal Medicine 03/17/23 documented as of this encounter
--- OUTSIDE RECORDS SUMMARY | 2025-06-18 10:21 | XMS_ITS | Encounter Summary ---
Author Organization [employer] Address [address] [place] [address] Care Team Providers Care Public Policy Coordinator Name Role Phone Darcie Escalante MD Primary Care Pro vider Reason for Visit * Reason Comments Pre-visit Planning SDOH Screening posit godwin and Tobacco screening negative Encounter Details Date Type Department Care Team ([facility] st Contact Info) Description 06/13/2025 Patient Outreach [facility] [address] [place] [address] Darcie Escalante MD [address] [place] [address] Pre-visit Planning (SDOH Screening positive and Tobacco screening negative) Social History Tobacco Use Types Packs/Day Years [...] housing situation today? I have allyson cohen 06/13/[address] you li ve. Do you have problems with any of the following? None of the above 06/13/2025 Food Insecurity Answer Date Recorded Within the past 12 months, y ou worried that your food would run out before you got money to buy more: Sometimes True 2024 Within the past 12 months,th e food you bought just didn't last and you didn't have enough money to get more: Sometimes True 06/13/2025 Transportation Answer Date Recorded In the past 12 months, has l ack of transportation kept you from medical appts, meetings, work or from getting things needed for daily living? No 06/13/2025 Utilities Answer Date Recorded In the past 12 months, has t he electric, gas, oil or water company threatened to shut off services in your home? No 06/13/2025 Depression Answer Date Recorded Patient Health Questionnaire-2 Score 3 01/23/2025 Internet Access Answer Date Recorded Internet Access Q1 Yes 06/13/2025 Internet Access Q2 Not on file 06/13/2025 Comments Unknown Sex and Gender Information Value Date Recorded Sex Assigned at Female 08/23/2022 10:36 AM EDT Legal Sex Female 10:36 AM EDT Gender Identity Female 08/23/2022 10:36 AM EDT Sexual Orientation Straight 08/23/2022 10 :36 AM EDT documented as of this encounter Progress Notes * Vero Sykes - 06/13/2025 11:11 AM EDT FELIPE Chavez placed successful outbound call to patient for pre-visit planning. Patient name and confirmed. Patient confirms appt date and time, and has transportation arrangements. Biggest concern for appointment at this time is no concerns for now. Patient advised to bring to appointment a photo id and insurance card. Appropriate screenings completed in anticipation of appointment. SDOH positive. Patient looking for assistance with Food insecurities. Referral will be placed. documented in this encounter Plan of Treatment Upcoming Encounters Date Type Department Care Team (Late st Contact Info) Description 06/21/2025 9:00 AM EDT Office Visit [facility] [address] [place] [phone] Darcie Escalante MD [address] [place] [address] documented as of this encounter Visit Diagnoses Not on filedocumented in this encounter Additional Health Concerns Assessment Noted Time PHQ-9 Depression Total Score: 10 01/23/ 025 10:05 AM EDT documented as of this encounter Care Teams Public Policy Coordinator Relationship Specialty Start Date End Date Darcie Escalante MD [address] [place] [phone] PCP - General Internal Medicine 03/17/23 documented as of this encounter
--- OUTSIDE RECORDS SUMMARY | 2025-06-18 10:21 | XMS_ITS ---
Author Name [facility] Organization Unknown Care Team Organization Name Specialty Phone Email Start Date End Da te [facility] Juana Ruvalcaba Primary Care 12/29/2022 06/11/2024 [facility] eBv Maynard Primary Care 08/31/20222023
--- OUTSIDE RECORDS SUMMARY | 2025-06-18 10:21 | XMS_ITS | Clinical Summary ---
Author Organization [facility] Address [address] [place] [address] Phone Care Team Providers Care Healthcare Recruiter Name Role Phone [facility] Primary Care Provider [phone] [facility] Unavailable [phone] Encounters Date Type Department Care Team Description 05/13/2025 9:05 AM EDT [facility] [address] [place] [address] 05/13/2025 Travel 05/13/2025 Orders Only [facility] Genetics Metabolism [address] [place] [phone] Sandra Ron MD Family history of genetic disease (Primary Dx) from Last 3 Months Social History Tobacco Use Types Packs/Day Years Used Date Smoking Tobacco: Never Assessed Comments Unknown Sex and Gender Information Value Date Recorded Sex Assigned at Not on file Legal Sex Unknown 02/01/2024 3:34 AM EDT Gender Identity Not on file Sexual Orientation Not on file Plan of Treatment Health Maintenance Due Date Last Done Comments HIV Screening 1987 MMR Vaccines (1 of 1 - Standard series) 01/11/1988 Varicella Vaccines (1 of 2 - 13+ 2-dose series) 01/11/2000 Hepatitis B Vaccines (1 of 3 - 19+ 3-dose series) 2006 HPV Vaccines (1 - 3-dose SCDM series) 2014 DTaP/Tdap/Td Vaccines (2 - Td or Tdap) 07/31/2018 07/03/2018 Influenza Vaccine (#1) 2025 , 09/14/2022, 07/21/2021, Additional history exists COVID-19 Vaccine Completed 08/07/2024, , 09/02/2021, Additional history exists Hepatitis C Screening Completed 08/07/2024 HIB Vaccines Aged Out No longer eligi [...] and At-Risk Patients (6 to 49 Years) Aged Out No longer eligible based on patient's age to complete this topic Rotavirus Vaccines Aged Out No longer eligible based on patient's age to complete this topic Insurance [facility] Member Subscriber Plan / Payer (Ef fective 2025-Present) Name:ALETA ROSENBAUM Relation to Subscriber:Self Name:Maddy Aleta Subscriber ID:Not on file Payer ID:Not on file Group ID:Not on file Type:Not on file Address: [facility] CUSTOMER SERV.ATTN:CLAIMS [address] [place], [place] Care Teams Healthcare Recruiter Relationship Specialty Start Date End Date [facility] [address] [place] [address] PCP - General 05/13/25 [facility] [address] [place] [address] PCP - Insurance Identified PCP 05/13/25
--- OUTSIDE RECORDS SUMMARY | 2025-06-18 10:21 | XMS_ITS | Encounter Summary ---
Author Organization [employer] Address [address] [place] [phone] Care Team Providers Care Paste Up Artist Name Role Phone Darcie Escalante MD Primary Care Pro vider Reason for Visit * Reason Comments Med Refill Encounter Details Date Type Department Care Team ([facility] st Contact Info) Description 07/05/2024 Refill [facility] [address] [place] [address] Darcie Escalante MD [address] [place] [address] Social History Tobacco Use Types Packs/Day Years [...] Description 06/21/2025 9:00 AM EDT Office Visit [facility] [address] [place] [phone] Darcie Escalante MD [address] [place] [phone] documented as of this encounter Visit Diagnoses Not on filedocumented in this encounter Additional Health Concerns Assessment Noted Time PHQ-9 Depression Total Score: 9 06/19/20 24 10:11 AM EDT documented as of this encounter Care Teams Paste Up Artist Relationship Specialty Start Date End Date Darcie Escalante MD [address] [place] [address] [phone] PCP - General Internal Medicine 03/17/23 documented as of this encounter
--- OUTSIDE RECORDS SUMMARY | 2025-06-18 10:21 | XMS_ITS | Encounter Summary ---
Author Organization [employer] Address [address] [place] [address] Care Team Providers Care Insurance Marketing Rep Name Role Phone Darcie Escalante MD Primary Care Pro vider Reason for Visit * Reason Comments Care Coordination CHW outreach for SDO H food needs-referral completed Encounter Details Date Type Department Care Team (Latest Contact Info) Description 06/13/2025 Patient Outreach [facility] [address] [place] [phone] Darcie Escalante MD [address] [place] [address] Care Coordination (CHW outreach for SDOH food needs-referral completed /) Social History Tobacco Use Types Packs/Day Years [...] as of this encounter Progress Notes * Michael Selby - 06/13/2025 1:05 PM EDT CHW Michael Selby, placed outbound call to patient for assistance with SDOH as a referral was received by the provider. Patient's name and were confirmed. Patient screened positive for the following SDOH food insecurities. Patient states family in on SNAP program at this time. CHW referral patient to the local list of pantries in the area for help. Patient verbalizes understanding, and ableto agree with plan to follow up. Patient educated on extended clinic hours on Mondays through Wednesdays, and Walk-In Urgent Care Located in [facility] of [facility]. Patient provided with after-hours line for [facility], , which offer night time triage service and option to transfer to conflict resolution professional provider if needed. documented in this encounter Plan of Treatment Upcoming Encounters Date Type Department Care Team (Late st Contact Info) Description 06/21/2025 9:00 AM EDT Office Visit [facility] [address] [place] [address] Darcie Escalante MD [address] [place], [place] [phone] documented as of this encounter Visit Diagnoses Not on filedocumented in this encounter Additional Health Concerns Assessment Noted Time PHQ-9 Depression Total Score: 10 01/23/ 025 10:05 AM EDT documented as of this encounter Care Teams Insurance Marketing Rep Relationship Specialty Start Date End Date Darcie Escalante MD [address] [place], [place] [phone] PCP - General Internal Medicine 03/17/23 documented as of this encounter
--- OUTSIDE RECORDS SUMMARY | 2025-06-18 10:21 | XMS_ITS | Clinical Summary ---
Author Organization [employer] Address [address] [place] [address] [address] [place] [address] Care Team Providers Care Digital Media Director Name Role Phone Darcie Escalante MD Primary Care Pro vider Allergies No known active allergies Medications cholecalciferol (Vitamin D-3) 125 MCG (5000 UT) capsule Take 125 mcg by mouth in the morning. 3 Active Alcohol Swabs (Alcohol Pads) 70 % pads Use as directed on skin 100 each 3 Active Blood Pressure Monitor kitIndications:E levated blood pressure reading 1 kit in the morning. 1 kit 3 Active Multiple Vitamin (multivitamin) tablet Take 1 tablet by mouth in the morning. OTC Active lisinopril 10 MG tabletIndication s:Elevated blood [...] DECREASE USE as symptoms improve 4 Active hydroxychloroqui ne (Plaquenil) 200 MG tablet Take 1 tablet by mouth 2 times daily. 4 Active celecoxib (CeleBREX) 200 MG capsule Take 1 capsule by mouth 2 times daily. 5 Active sertraline (Zoloft) 50 MG tablet Take 50 mg by mouth Once per day. 5 Active traZODone (Desyrel) 50 MG tablet TAKE 1/2 TABLET BY MOUTH AT BEDTIME NEEDED 5 Active Tirzepatide-Weig ht Management (Zepbound) 12.5 MG/0.5ML solution auto-injector Inject 0.5 mL (12.5 mg) under the skin 1 (one) time per week. Increase dose monthly 2 mL 5 Active Tirzepatide-Weig ht Management (Zepbound) 10 MG/0.5ML solution auto-injector Inject 0.5 mL (10 mg) under the skin 1 (one) time per week. 2 mL 3 5 05/28/20 25 Discontinu ed(Other) Active Problems Problem Noted Date Diagnosed Date [...] smear : 2021 neg per pt at [facility] --no able to obtain previous record [...] smear : 2021 neg per pt at [facility] -- ---- requested record to Kaila [...] (07/29/2023 9:27 AM EDT): Conflicting skin biopsies. Will check lab and will schedule her for Patch testing with the Molding Line Operator Continue Elidel cream, twice daily Begin Heliocare 1 cap every morning and CeraVe Mineral Sunscreen spf 50 every morning Reinforce gentle cleansers and moisturizers Return to clinic in one-week for re-evaluation. Assessment & Plan (06/26/2023 10:30 AM EDT): Pt w facial rash from record had skin bx w prior field software engineer told to be negative x concerning autoimmune dx Possible allergic contact dermatitis from derm's note 05/2023 ESR 23 ( Elevated) , CRP wnl,total protein mild elev at 8.5, LEN neg,RF neg . -here f w field software engineer on pimecrolimus 1% BID and minocycline 100 mg BID x 14 days -close to complete tx -continue care w field software engineer -next apt 07/08/2023 -may need to consider to hold statins as it can be associated w eczema discuss w pt at next apt if rash still present -referred to public health staff nurse by derm pd to get apt Assessment & Plan (04/06/2023 11:28 AM EDT): Pt w facial rash from record had skin bx w prior field software engineer told to be negative x concerning autoimmune dx Possible allergic contact dermatitis from derm's note -here f w field software engineer started on tacrolimus topical w improvement and to keep topical steroids -to f w derm in 6 weeks -referred to public health staff nurse by derm pd to get apt -pt [...] Encounters Date Type Department Care Team Description 06/13/[address] [facility] [address] [place] [phone] Darcie Escalante MD Care Coordination (CHW outreach for SDOH food needs-referral completed /) 06/13/[address] [facility] [place] [address] Darcie Escalante MD Pre-visit Planning (SDOH Screening positive and Tobacco screening negative) 05/28/[address] [facility] [place] [place] [facility] [phone] Darcie Escalante MD 05/27/[address] [facility] [place] [phone] Darcie Escalante MD 04/03/[address] [facility] [place] [phone] Darcie Escalante MD from Last 3 Months Immunizations Immunization Administration Dates Next Due INFLUENZA INJECTABLE QUADRIV [...] 75 01/23/2025 10:03 AM EDT Temperature 36.3 C (97.4 F) 01/23/2025 10:03 AM EDT Respiratory Rate 20 01/23/2025 10:0 3 AM EDT Oxygen Saturation 99% 01/23/2025 10: 03 AM EDT Inhaled Oxygen Concentration - - Weight 79.7 kg (175 lb 12.8 oz) 025 10:03 AM EDT Height 157.5 cm (5' 2 ) 01/23/2025 10:0 3 AM EDT Body Mass Index 32.15 01/23/2025 10:03 AM EDT Plan of Treatment Upcoming Encounters Date Type Department Care Team (Late st Contact Info) Description 06/21/2025 9:00 AM EDT Office Visit [facility] [address] [place] [address] Darcie Escalante MD [address] [place], [place] [phone] Health Maintenance Due Date Last Done Comments Family Planning (PISQ) 2002 HPV Vaccines (1 - 3-dose series) 2002 Hepatitis A Vaccines (1 of 2 - Risk 2-dose series) 2006 Hepatitis B Vaccines (1 of 3 - 19+ 3-dose series) 2006 Influenza Vaccine (#1) 2025 , 09/14/2022, 07/21/2021, Additional history exists Depression Monitoring 07/25/2025 01/23/2025, 025 Alcohol/Substance Use Screening 01/23/2026 01/23/2025 Disability Screening 01/23/2026 01/23/2025 Tobacco Screening 01/23/2026 01/23/2025 SDOH Screening 06/13/2026 06/13/2025 Cervical Cancer Screening 11/15/2027 HPV/Cotest 11/15/2027 Pap [...] 06/06/2023 Hepatitis C Screening Completed 08/07/2024, 023 HIB Vaccines Aged Out No longer eligi [...] Years) and At-Risk Patients (6 to 49) Years Aged Out No longer eligible based on patient's age to complete this topic RSV under 20 months Aged Out No longe r eligible based on patient's age to complete this topic Rotavirus Vaccines Aged Out No longer eligible based on patient's age to complete this topic Procedures Procedure Name Priority Date/Time Associated Diagnosis Comments HEPATITIS C AB W/REFL TO HCV RNA, QN, PCR Routine 08/07/2024 8:40 AM EDT Annual physical exam HIV 1/2 ANTIGEN/ANTIBODY, FOURTH GENERATION W/RFL Routine 08/07/2024 8:40 AM EDT Annual physical exam LIPID PANEL, STANDARD Routine 08/07/2024 8:40 AM EDT Annual physical exam HM PAP/HPV Routine 11/15/2022 10:55 AM EST from Last 3 Months or Most Recently Relevant to Health Maintenance Results * Hepatitis C Antibody with Reflex to HCV, RNA, Quantitative, Real-Time PCR (08/07/2024 8:40 AM EDT) Hepatitis C Antibody Nonreactive Nonreactive [facility] Comment:Antibodies to HCV no t detected; does not exclude early acuteHCV infection. Blood Venous blood specimen / Unknown 08/07/2024 8:40 AM EDT 08/07/2024 11:11 AM EDT us Darcie Joel MD LAB BLOOD ORDERAB LES Final Result [facility] [address] [place] [phone] * HIV-1/2 Antigen and Antibodies, Fourth Generation, with Reflexes (08/07/2024 8:40 AM EDT) HIV AB/AG Nonreactive Nonreactive [facility] Comment:HIV-1 p24 Ag and/or HIV-1/HIV-2 Ab not detected.A test result that is nonreactive does not exclude thepossibility of exposure to or infection with HIV-1 and/orHIV-2. Nonreactive results in this assay for individualswith prior exposure to HIV-1 and/or HIV-2 may be due toantigen and antibody levels that are below the limit ofdetection of this assay.The [employer] HIV Ag/Ab Combo assay result andsupplemental assay results should be interpreted inconjunction with the patient's clinical presentation,history and other laboratory results. If the results areinconsistent with clinical evidence, additional testing issuggested to confirm the result. Blood Venous blood specimen / Unknown 08/07/2024 8:40 AM EDT 08/07/2024 11:11 AM EDT Darcie Joel MD LAB BLOOD ORDERAB LES Final Result [facility] [address] [place] [phone] * (ABNORMAL) Lipid Panel, Standard (08/07/2024 8:40 AM EDT) Triglycerides 198(H) <150 mg/dL [facility] Comment:Desirable Triglyceri de: less than 150 mg/dLBorderline High Triglyceride 150-199 mg/dLHigh Triglyceride: 200-499 mg/dLVery High Triglyceride: greater than or equal to 5OO mg/dL Cholesterol 179 <200 mg/dL [facility] Comment:Desirable Cholestero l: less than 200 mg/dLBorderline High Cholesterol: 200-239 mg/dLHigh Cholesterol: greater than 239 mg/dL LDL Cholesterol Calculated 96 <100 mg/dL [facility] Comment:Desirable LDL: less than 100 mg/dLNear Optimal/Above Optimal LDL: 110- 129 mg/dLBorderline High LDL: 130-159 mg/dLHigh LDL: 160-189 mg/dLVery High LDL: greater than or equal to 190 mg/dL HDL Cholesterol 44 >40 mg/dL [facility] Comment:Desirable HDL: great er than 40 mg/dL Note: This HDL assay may give artificially low results in patients with liver disease. Blood Venous blood specimen / Unknown 08/07/2024 8:40 AM EDT 08/07/2024 11:11 AM EDT Darcie Joel MD LAB BLOOD ORDERAB LES Final Result [facility] [address] [place] [phone] * HM PAP/HPV (11/15/2022 10:55 AM EST) us Historical Provider HEALTH MAINTENANCE Final Result from Last 3 Months or Most Recently Relevant to Health Maintenance Insurance [facility] C3 Care Teams Digital Media Director Relationship Specialty Start Date End Date Darcie Escalante MD [address] [place] [phone] PCP - General Internal Medicine 03/17/23
[2025-06-18 11:01] LABS: Hematocrit 35.7 % (37.0-47.0); Hemoglobin 11.9 g/dl (12.0-16.0); Imm Gran Abs Auto 0.03 X10*3/uL (0.00-0.03); Imm Gran Pct Auto 0.4 % (0.0-0.4); Lymphocytes Absolute Auto 1.9 X10*3/uL (1.2-4.9); Mean Corpuscular HGB Conc 33.3 g/dl (31.0-35.0); Mean Corpuscular Hemoglobin 27.2 pg (27.0-33.0); Mean Corpuscular Volume 81.7 fL (80.0-98.0); NRBC Abs Auto 0.000 X10*3/uL (0.0-0.012); NRBC Pct Auto 0.0 /100WBC (0.0-0.2); Platelet Count 186 X10*3/uL (160-400); Red Blood Count 4.37 X10*6/uL (4.20-5.50); White Blood Count 6.8 X10*3/uL (4.8-10.8)
[2025-06-18 11:37] LABS: Alanine Aminotransferase 12 U/L (0-31); Albumin Level 4.4 g/dL (3.5-5.0); Alkaline Phosphatase 56 U/L (39-117); Anion Gap 11 (12-20); Aspartate Amino Transferase 17 U/L (5-31); Blood Urea Nitrogen 14 mg/dL (9-16); Calcium 9.3 mg/dL (8.4-10.2); Carbon Dioxide 25 mmol/L (22-29); Chloride 107 mmol/L (96-108); Estimated Glomerular Filt Rate > 60; Potassium 4.3 mmol/L (3.3-5.1); Sodium 139 mmol/L (135-145); Total Protein 8.1 g/dL (6.5-8.0)
[2025-06-18 11:38] LABS: Appearance Urine Clear; Glucose Urine UA Negative (Negative); PH 6.0 (5.0-9.0); Specific Gravity - Urine 1.020 (1.005-1.025)
[2025-06-18 12:20] LABS: Protein/Creatinine Ratio, Ur 0.06 (<0.2); Total Protein Urine Random 9 mg/dL (<12)
[2025-06-21 21:54] LABS: Myoglobin, Quant. Random Urine <1 mg/L (0-1)
== END 2025-06-18 09:41 | disposition home or self-care (01) ==
LOC: HO.LAB 09:40
PROVIDERS: PCP Student in an Organized Health Care Education/Training Program; Visit Provider Student in an Organized Health Care Education/Training Program
DX: L93.1 Subacute cutaneous lupus erythematosus (principal)
CPT/HCPCS: 36415; 80053; 81001; 82570; 83874; 84156; 85025; 85652; 86140; 86160; 86225

== ENCOUNTER 2025-06-25 08:35 | Outpatient (AMB) | payer MEDICAID, SELFPAY ==
--- OUTSIDE RECORDS SUMMARY | 2025-06-21 09:00 | XMS_ITS | Encounter Summary ---
Author Organization [employer] Address [address] [place] [phone] Care Team Providers Care Success Coach Name Role Phone Darcie Escalante MD Primary Care Pro vider Encounter Details Date Type Department Care Team ([facility] st Contact Info) Description 06/21/2025 9:00 AM EDT Office Visit [facility] [address] [place] [address] [phone] Darcie Escalante MD [address] [place] [address] Annual physical exam (Primary Dx); Primary hypertension; Obesity (BMI 30.0-34.9); Health care maintenance; Tobacco use; Cysts of both ovaries Social History Tobacco Use Types Packs/Day Years Used Date Smoking Tobacco: Former Cigarettes Passive Smoke Exposure: Past Smokeless Tobacco: Never Comments:Started smoking 18 y until 31 years and again since 37 y of age - smoke 3 cigarettes a day and most recently was vaping daily ---PQT calc 2.1 Alcohol Use Standard Drinks/Week Comments Yes 0 (1 standard drink = 0.6 oz [...] the past 12 months, has t he [employer], gas, oil or water company threatened to [...] Sign Reading Time Taken Comments Blood Pressure 110/84 06/21/2025 8:56 AM EDT Pulse 90 06/21/2025 8:56 AM EDT Temperature 36.3 C (97.3 F) 06/21/2025 8:56 AM EDT Respiratory Rate 20 06/21/2025 8:56 AM EDT Oxygen Saturation 99% 06/21/2025 8:56 AM EDT Inhaled Oxygen Concentration - - Weight 72.1 kg (159 lb) 06/21/2025 8:56 AM EDT Height 157.5 cm (5' 2 ) 06/21/2025 8:56 AM EDT Body Mass Index 29.08 06/21/2025 8:56 AM EDT documented in this encounter Progress Notes * Darcie Joel MD - 06/21/2025 9:00 AM EDT Subjective Patient ID: Aleta Styles is a 40 y.o. 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 ---- -LMP: 06/21/2025 ------- Assessment and Plan: Health care maintenance -Annual exam done 05/2025 -Pap smear 11/2022 Neg/HPV neg ( obtained records) so repeat in 5 y -contraception: s/P tubal ligation -vaccines: s/P covid 19 x4-last 07/2024 ,s/P tdap 2018 ,refuse HPV vaccine . Hep B immune. Flu vaccine 07/2024 -advised for COVID 19 and Flu vaccine in 06/2025 --- -Recent labs in 03/2025 Done by core java engineer -03/2025 STI panel neg Anemia -03/2025 CBC hb 11.9, normocytic ,chem wnl, TP 8,1 -slight elevated ,ESR slight elevated ,CRP wnl Used to have heavy menstrual now better since weight loss -Ordered iron,ferritin, vit B12,folic acid for anemia HTN -reports controlled at home -EKG for baseline 01/2024 ,NSR,HR 79,Qtc 406, only TWI in lead III , no other leads abnormalities -edge plugger 01/2025 to f in 1y -03/2025 Microalb neg -continue lisinopril 10 mg daily -bring home BP readings. < 140/90 -life style changes advised ,low salt diet Overweight -Lost 43 pounds in 18 months since using Zepbound BMI 29<----32<---34<--36 -doing diet and exercise ,states tried activity twice a week -continue life style changes advised -continue Zepbound 12.5 mg weekly to increase soon to next dose Discoid Lupus 05/2023 ESR 23 ( Elevated) , CRP wnl,total protein mild elev at 8.5, LEN neg,RF neg 06/24/2023 immunofixation: neg, IgG elev 1870,SPEP and UPEP wnl,UA neg Dx w skin bx w discoid lupus -02/2025 from core java engineer---belimumab therapy -Continue care w cigar tobacco processing supervisor -On Plaquenil---edge plugger 01/2025 to f in 1y -tried oplezura cream gave by staffing specialist -helped -will discuss w cigar tobacco processing supervisor to see if continue ,states stopped other creams given did not have improvement -staffing specialist 05/24/2024 on immunotherapy getting inj for allergic rhinitis, tested skin path reported as nheg to 80 antigents only + to one mentioned that pt is not exposed 1.3 dyphenylguanidine -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 HLD -08/07/2024 Trig 198<---281, total ch 179<---215, LDL 96 <---117 -life style changes advised -on crestor -omega 3 daily -repeat fasting lipids Tobacco use Started smoking 18 y until 31 years and again since 37 y of age - smoke 3 cigarettes a day and mostrecently was vaping daily ---PQT calc 2.1 Pt is using 5% vape that last 1 mo so that is equivalent to 5 cig a day -start nicotine 14 mg Patch today ,refuse lozenges and gums -advied to discuss w psychiatrist about options of bupropion and chantix -advised to continue avoiding tobacco -will continue to monitor Anxiety and depression--states feeling better -PHQ9 9,GAD5 ,no SI ,no tonie nor hallucinations ,reports anxiety ,states 8 y ago had superficial cut of wrist ,denies violence at home -continue care w her therapist -Gildardo lambert and psychiatrist -continue antidepressants Ovarian cysts TV/pelvis US 04/15/2025 Focal hypoechoic area in the posterior body measuring 1.9 x 1.5 x 2.1 cm likely represents uterine leiomyoma.Right Ovary Enlarged by presence of 13.2 x 9.1 x 12.3 cm simple appearing cyst.Left Ovary Enlarged by presence of 10.3 x 8.0 x 9.8 cm simple appearing cyst. -f w DISTRIBUTION CENTER ASSOCIATE planned to repeat pelvic US for next week Review of Systems Constitutional: Negative. Negative for chills, fatigue and fever. HENT: Negative. Eyes: Negative. Respiratory: Negative. Cardiovascular: Negative. Gastrointestinal: Negative. Genitourinary: Negative. Musculoskeletal: Negative. Neurological: Negative. Hematological: Negative. Psychiatric/Behavioral: Negative. Objective BP 110/84 (BP Location: Left arm, Patient Position: Sitting, BP Cuff Size: Adult) Pulse 90 Temp97.3 ??F (36.3 ??C) (Temporal) Resp 20 Ht 5' 2 (1.575 m) Wt 159 lb (72.1 kg) LMP 06/21/2025 (Exact Date) SpO2 99% BMI 29.08 kg/m?? Physical Exam Vitals reviewed. Constitutional: Appearance: Normal appearance. HENT: Head: Normocephalic and atraumatic. Right Ear: Tympanic membrane and ear canal normal. Left Ear: Tympanic membrane and ear canal normal. Mouth/Throat: Mouth: Mucous membranes are moist. Pharynx: Oropharynx is clear. Eyes: Extraocular Movements: Extraocular movements intact. Pupils: Pupils are equal, round, and reactive to light. Cardiovascular: Rate and Rhythm: Normal rate and regular rhythm. Heart sounds: Normal heart sounds. No murmur heard. Pulmonary: Effort: Pulmonary effort is normal. Breath sounds: Normal breath sounds. Abdominal: General: Abdomen is flat. Bowel sounds are normal. Palpations: Abdomen is soft. Musculoskeletal: General: Normal range of motion. Cervical back: Normal range of motion and neck supple. Skin: General: Skin is warm. Neurological: General: No focal deficit present. Mental Status: She is alert and oriented to person, place, and time. Mental status is at baseline. Psychiatric: Mood and Affect: Mood normal. Behavior: Behavior normal. Assessment/Plan Problem List Items Addressed This Visit Obesity (BMI 30.0-34.9) Tobacco use Relevant Medications nicotine (Nicoderm CQ) 14 MG/24HR patch Health care maintenance Hypertension Ovarian cyst Other Visit Diagnoses Annual physical exam - Primary Relevant Orders Hemoglobin A1c Lipid Panel, Standard TSH with Reflex to Free T4 Vitamin D, 25-Hydroxy, Total, Immunoassay Vitamin B12 (Cobalamin) and Folate Panel, Serum Iron And Total Iron Binding Capacity Ferritin documented in this encounter Plan of Treatment Scheduled Orders Name Type Priority Associated Diagnoses Orde r Schedule Hemoglobin A1c Lab Routine Annual physical exam Expected: 06/21/2025 (Approximate), Expires: 06/21/2026 Lipid Panel, Standard Lab Routine Annual physical exam Expected: 06/21/2025 (Approximate), Expires: 06/21/2026 TSH with Reflex to Free T4 Lab Routine Annual physical exam Expected: 06/21/2025 (Approximate), Expires: 06/21/2026 Vitamin D, 25-Hydroxy, Total, Immunoassay Lab Routine Annual physical exam Expected: 06/21/2025 (Approximate), Expires: 06/21/2026 Vitamin B12 (Cobalamin) and Folate Panel, Serum Lab Routine Annual physical exam Expected: 06/21/2025 (Approximate), Expires: 06/21/2026 Iron And Total Iron Binding Capacity Lab Routine Annual physical exam Expected: 06/21/2025 (Approximate), Expires: 06/21/2026 Ferritin Lab Routine Annual physical exam Expected: 06/21/2025 (Approximate), Expires: 06/21/2026 documented as of this encounter Visit Diagnoses Diagnosis Annual physical exam- Primary Routine general medical examination at a health care facility Primary hypertension Unspecified essential hypertension Obesity (BMI 30.0-34.9) Health care maintenance Tobacco use Cysts of both ovaries Other and unspecified ovarian cyst documented in this encounter Additional Health Concerns Assessment Noted Time PHQ-9 Depression Total Score: 10 01/23/ 025 10:05 AM EDT documented as of this encounter Care Teams Success Coach Relationship Specialty Start Date End Date Darcie Escalante MD [address] [place] [phone] PCP - General Internal Medicine 03/17/23 documented as of this encounter
[2025-06-25 08:42] VITALS: BP 108/64; PULSE 82; O2SAT 98; BMI 29.0
--- NOTE | 2025-06-25 08:42 | A.OFFVIS_ITS ---
Vital Signs 06/25/25 08:42 Height 5 ft 2 in Weight 158 lb 8 oz BMI 29.0 BP 108/64 Blood Pressure Location Lt brachial Position Sitting Pulse 82 Pulse Source Pulse Oximeter Pulse Oximetry (%) 98 Oxygen Delivery Method Room Air Intake Visit Reasons: follow up Intake Note: Patient presents for follow up on lupus and bilateral carpal tunnel syndrome. 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 - On Hydroxychloroquine 200mg bid and Saphnelo 300mg IV every 4 weeks - Rashes improved - Not on her topical betamethasone Today - On Hydroxychloroquine 200mg bid and Saphnelo 300mg IV every 4 weeks. Topical betamethasone prescribed by derm - Mild worsening of her skin - Struggling with depression Rheumatologic History: Subcutaneous lupus Dx 10/2022 Responded to oral steroids Plaquenil - not effective Tacrolimus - not effective Opzelura - effective but insurance did not approve Saphenlo - 07/2024. effective Patient presented 07/25/2024 with facial rash that started in the summer of 2021. She 1st sought medical attention in October of 2022. At that time she saw a staff appraiser who gave her a prednisone taper (40 mg then 30 mg then 20 mg then 10 mg and 5 mg then stop), performed a skin biopsy and gave her topical creams. Patient noted good relief from the steroids however after the steroids were completed the rash returned. She has tried Plaquenil for 3 months without improvement then she tried topical tacrolimus for 3 months without improvement then she tried topical steroids without improvement. She then sought a 2nd opinion and had another biopsy which confirmed subacute cutaneous lupus. She was given a trial of Opzulara which helped however this was denied by her insurance. She also now is complaining of mild joint stiffness lasting about 15 minutes in the morning however denies joint swelling. Denies frothy urine, oral/nasal ulcers. She does report that she feels that her hair is thinning but denies any rash or lesions to her scalp. Family history significant for sister with rheumatoid arthritis. No family member has lupus. She has 2 children. Had 1 miscarriage at 9 weeks. Both pregnancies were to t erm no preeclampsia. No history of VTE or PE. Current Rheumatology Medication(s): Saphenlo 300mg IV every month Plaquenil 200mg bid PFSH Medical History Knee pain, bilateral Bilateral carpal tunnel syndrome Long-term use of Plaquenil Subacute cutaneous lupus erythematosus Abnormal echocardiogram Discoid lupus Hypertension Anterior leg pain Insomnia Anxiety and depression Tobacco use Migraine Dermatitis No pertinent past medical history Surgical History Hx of section Family History Mother Hypertension Diabetes High cholesterol Father Diabetes High cholesterol Hypertension Brother High cholesterol Sister No problems noted. Daughter No problems noted. Son Chromosome 7q11.23 duplication syndrome Social History Alcohol intake: never Patient Tobacco Use Status: Former Tobacco user Tobacco use type: Smokeless Tobacco Review of Systems Const Details: Review of Systems Constitutional: Denies fever, chills, weight loss ENT: Denies vision changes, eye pain or eye redness, dental caries, dry mouth GI: Denies nausea, vomiting, diarrhea, abdominal pain, change in BM Pulm: Denies SOB, CHIRINOS, hemoptysis, wheezing Cards: Denies chest pain, palpitations Skin: Denies Raynaud's, nail changes, photosensitivity, LOCK [employer] EQUIPMENT REPAIRER: Denies headaches, weakness, paresthesias, recurrent falls MSK: as per HPI All other systems reviewed and are unremarkable except noted above Physical Exam Exam Exam: Vital signs reviewed Physical Examination CONSTITUITIONAL Patient alert and cooperative. Well appearing and in no apparent painful distress MSK Hands * Right Hand: Able to make a fist. No swelling or tenderness to palpation of the MCPs, PIPs or DIPs. No deformities noted. * Left Hand: Able to make a fist. No swelling or tenderness to palpation of the MCPs, PIPs or DIPs. No deformities noted. Wrists * Right Wrist: Full ROM to flexion and extension. No swelling or TTP * Left Wrist: Full ROM to flexion and extension. No swelling or TTP Elbows * Right Elbow: Full ROM. No swelling or TTP. No TTP of the medial epicondyle. No TTP of the lateral epicondyle * Left Elbow: Full ROM. No swelling or TTP. No TTP of the medial epicondyle. No TTP of the lateral epicondyle Shoulders * Right shoulder: Full ROM. No swelling noted. No TTP of the AC joint. No TTP of the subacromial bursa. No TTP of the posterior shoulder * Left shoulder: Full ROM. No swelling noted. No TTP of the AC joint. No TTP of the subacromial bursa. No TTP of the posterior shoulder Knees * Right knee: Full ROM. No swelling noted. No TTP of the knee joint line. No TTP of pes anserine bursa * Left knee: Full ROM. No swelling noted. No TTP of the knee joint line. No TTP of pes anserine bursa. Ankles * Right ankle: Good ankle dorsiflexion and plantar flexion. No swelling. No TTP of the ankle joint * Left ankle: Good ankle dorsiflexion and plantar flexion. No swelling. No TTP of the ankle joint Feet * Right foot: Negative squeeze test * Left foot: Negative squeeze test Tender points? * No tenderness to palpation of the bilateral trapezius, supraspinatus, anterior costochondral junctions, bilateral suboccipital muscle insertions SKIN Erythema noted to the brow and cheeks New active lesions noted on the right cheek Vital Signs: Last Vital Signs Pulse 82 06/25/25 08:42 BP 108/64 06/25/25 08:42 Pulse Ox 98 06/25/25 08:42 Oxygen Delivery Method Room Air 06/25/25 08:42 BMI result Body Mass Index 29.0 Results Reviewed Results Reviewed: Laboratory Tests 02/21/25 06/18/25 09:56 10:14 WBC 6.8 RBC 4.37 Hgb 11.9 L Hct 35.7 L Plt Count 186 ESR 16 23 H Sodium 139 Potassium 4.3 Chloride 107 Carbon Dioxide 25 BUN 14 Creatinine 0.79 AST 17 ALT 12 Alkaline Phosphatase 56 C-Reactive Protein 0.10 0.26 Laboratory Tests 06/18/25 10:12 Urine Color Yellow Urine Protein Negative Urine Blood Negative Urine RBC 0-2 Protein/Creatinin Ratio 0.06 Laboratory Tests 06/18/25 10:14 Double Strand DNA Ab 1 Complement C3 170 Complement C4 43 Assessment & Plan Assessment & Plan (1) Subacute cutaneous lupus erythematosus: Comment: Subcutaneous lupus Dx 10/2022. Biopsy proven Responded to oral steroids Plaquenil - not effective Tacrolimus - not effective Opzelura - effective but insurance did not approve Saphenlo - 07/2024. effective Code(s): L93.1 - Subacute cutaneous lupus erythematosus Category: Medical Plan: #Subacute cutaneous lupus Patient is a 40-year-old female with subacute cutaneous lupus here today for follow up. Still having intermittent flares of her face and currently having a flare Discussed with patient that while her face is 85% better, there is still room to improve Saphenlo is better at skin coverage than Benlysta and she does not have any other systemic manifestations, so at this time I do not think changing the infusion would be helpful Ideally I would keep the patient on plaquenil but patient does not want polypharmacy Will discontinue plaquenil and start methotrexate which has good coverage for cutaneous lupus She has had bilateral TL and so no future concerns for pregnancies Plan - Saphnelo 300mg IV monthly - Stop plaquenil - Start methotrexate 15mg weekly - Start folic acid 1mg daily - Topical betamethasone from derm - RTC 4 months - Labs prior to visit: CBC, CMP, ESR, CRP, C3, C4, dsDNA, UA, UPC (2) Hematuria: Code(s): R31.9 - Hematuria, unspecified Qualifiers: Hematuria type: unspecified type Qualified Code(s): R31.9 - Hematuria, unspecified Plan: #Hematuria Resolved (3) Knee pain, bilateral: Code(s): M25.561 - Pain in right knee; M25.562 - Pain in left knee Category: Medical Qualifiers: Chronicity: chronic Qualified Code(s): M25.561 - Pain in right knee; M25.562 - Pain in left knee; G89.29 - Other chronic pain Plan: #Knee Pain History and exam consistent with findings of early OA Plan - Celebrex 200mg bid prn for pain control (4) Bilateral carpal tunnel syndrome: Code(s): G56.03 - Carpal tunnel syndrome, bilateral upper limbs Category: Medical Plan: #Hand Pain with numbness Exam and history suggests carpal tunnel Though EMG was negative still likely that she has early disease. Recommend splinting Plan - CTS splint (5) Encounter for monitoring of belimumab therapy: Code(s): Z51.81 - Encounter for therapeutic drug level monitoring; Z79.620 - long term care administrator (current) use of immunosuppressive biologic Plan: #Long-term Use of Anifrolumab Discussed with patient the risks and benefits of and anifrolumab for managing there rheumatic condition. Benefits include: Remission of disease, improved pain, improved mobility, improved rash gnancy Risks include: Infusion reactions, increased risk of infection, potential for malignancy (6) Encounter for methotrexate monitoring: Code(s): Z51.81 - Encounter for therapeutic drug level monitoring; Z79.631 - long term care administrator (current) use of antimetabolite agent Plan: #Long-term Current Use of Methotrexate Discussed with patient the benefits and risks of methotrexate for managing their rheumatic condition Benefits include reduced pain, reduced mortality, maintenance of remission and reduction of flares Risks include oral ulcers, photosensitivity, hepatotoxicity, hematologic toxicity, pneumonitis, flu-like symptoms (especially day after administration), nodulosis, lymphomas ? Limit alcohol and avoid Bactrim ? Monitoring: CBC, BMP, LFTs every 3-4 months and hepatitis serologies as needed Plan I spent 40 minutes reviewing the record and labs, seeing the patient, discussing the treatment plan and documenting in the medical record Orders: Orders Complete Blood Count Auto Diff 4 Months M32.9 - Systemic lupus erythematosus, unspecified Comprehensive Met. Panel 4 Months M32.9 - Systemic lupus erythematosus, unspecified Erythrocyte Sedimentation Rate 4 Months M32.9 - Systemic lupus erythematosus, unspecified Complement C4 4 Months M32.9 - Systemic lupus erythematosus, unspecified Anti DNA DS Antibody 4 Months M32.9 - Systemic lupus erythematosus, unspecified UA ClnCatch+Micro w/rflx Cult 4 Months M32.9 - Systemic lupus erythematosus, unspecified C Reactive Protein 4 Months M32.9 - Systemic lupus erythematosus, unspecified Complement C3 4 Months M32.9 - Systemic lupus erythematosus, unspecified Protein Creatinine Ratio, Ur 4 Months M32.9 - Systemic lupus erythematosus, unspecified Medications: New folic acid 1 mg PO DAILY 90 tabs 1RF L93.1 - Subacute cutaneous lupus erythematosus methotrexate sodium 15 mg (6 x 2.5 mg) PO QWEEK 78 tabs 1RF 90 days L93.1 - Subacute cutaneous lupus erythematosus Discontinued hydroxychloroquine (Plaquenil) Discontinued Reason: Doctor's Order 200 mg PO BID 90 days 180 tabs 2RF L93.1 - Subacute cutaneous lupus erythematosus Coding Level of Care Code Est Pt Level 5 (66599) Complex EM visit Add On G2211 Diagnoses Subacute cutaneous lupus erythematosus L93.1 Hematuria, unspecified type R31.9 Hematuria type: unspecified type Chronic pain of both knees M25.561; M25.562; G89.29 Chronicity: chronic Bilateral carpal tunnel syndrome G56.03 Encounter for monitoring of belimumab therapy Z51.81; Z79.620 Encounter for methotrexate monitoring Z51.81; Z79.631
--- OUTSIDE RECORDS SUMMARY | 2025-06-25 09:14 | XMS_ITS | Encounter Summary ---
Author Organization [employer] Address [address] [place] [address] Care Team Providers Care Prepared Foods Team Leader Name Role Phone Darcie Escalante MD Primary Care Pro vider Encounter Details Date Type Department Care Team (Latest Contact Info) Description 01/15/2021 Abstract [facility] CONVERSIONS Dental, Provider, DDS [...] on filedocumented in this encounter Care Teams Prepared Foods Team Leader Relationship Specialty Start Date End Date Darcie Escalante MD [address] [place] [phone] PCP - General Internal Medicine 03/17/23 documented as of this encounter
--- OUTSIDE RECORDS SUMMARY | 2025-06-25 09:14 | XMS_ITS | Encounter Summary ---
Author Organization [employer] Address [address] [place] [address] Care Team Providers Care Creative Arts Therapist Name Role Phone Darcie Escalante MD Primary Care Pro vider Reason for Visit * Reason Comments Med Refill Encounter Details Date Type Department Care Team ([facility] st Contact Info) Description 05/27/2025 [facility] [address] [place] [address] Darcie Escalante MD [address] [place] [address] Social History Tobacco Use Types Packs/Day Years [...] documented in this encounter Plan of Treatment Not on file documented as of this encounter Visit Diagnoses Not on filedocumented in this encounter Additional Health Concerns Assessment Noted Time PHQ-9 Depression Total Score: 10 025 10:05 AM EDT documented as of this encounter Care Teams Creative Arts Therapist Relationship Specialty Start Date End Date Darcie Escalante MD [address] [place] [phone] PCP - General Internal Medicine 03/17/23 documented as of this encounter
--- OUTSIDE RECORDS SUMMARY | 2025-06-25 09:14 | XMS_ITS | Clinical Summary ---
Author Organization [facility] Address [address] [place] [phone] Phone Care Team Providers Care Drug Enforcement Administration Agent Name Role Phone Sher Perkins MD Primary Care Provider [phone] Allergies No known active allergies Medications cetirizine [...] HEPATITIS C SCREENING 2005 HIV ONE-TIME SCREENING (18-65 YEARS) 2005 PNEUMOCOCCAL VACCINES (0-49 years) (1 of 2 - PCV) 2006 PAP SMEAR 01/11/2008 SCREENING FOR DIABETES 2022 COVID-19 VACCINE ( season) 2024 09/02/2021, 12/19/2020, 11/27/2020 INFLUENZA VACCINE (#1) 2025 , 10/29/2020, 10/19/2019, Additional history exists Adult Td,Tdap Booster 07/03/2028 07/03/2018 HEPATITIS A [...] topic Medical Devices Not on file Insurance [employer] [address] [place] [address] [employer] Care Teams Drug Enforcement Administration Agent Relationship Specialty Start Date End Date Sher Perkins MD [address] [place] [address] PCP - General Internal Medicine 03/29/22 Additional Source Comments The information contained in this document represents components of the legal health record. It is not the complete legal health record.[facility]
--- OUTSIDE RECORDS SUMMARY | 2025-06-25 09:14 | XMS_ITS | Encounter Summary ---
Author Organization [employer] Address [address] [place] [address] Care Team Providers Care Director Of Premium Seat Sales Name Role Phone Darcie Escalante MD Primary Care Pro vider Reason for Visit * Reason Onset Date Comments Med Refill 04/03/2025 Encounter Details Date Type Department Care Team ([facility] st Contact Info) Description 04/03/[address] [facility] MEDICINE [address] [place] [address] Darcie Escalante MD [address] [place] [address] Social History Tobacco Use Types Packs/Day Years [...] of this encounter Care Teams Director Of Premium Seat Sales Relationship Specialty Start Date End Date Darcie Escalante MD [address] [place] [phone] PCP - General Internal Medicine 03/17/23 documented as of this encounter
--- OUTSIDE RECORDS SUMMARY | 2025-06-25 09:14 | XMS_ITS | Encounter Summary ---
Author Organization [employer] Address [address] [place] [address] Care Team Providers Care Customer Support Professional Name Role Phone Darcie Escalante MD Primary Care Pro vider Reason for Visit * Reason Onset Date Comments Med Refill 02/07/2024 Encounter Details Date Type Department Care Team ([facility] st Contact Info) Description 02/07/2024 Refill [facility] MEDICINE [address] [place], [place] [phone] Darcie Escalante MD [address] [place] [address] Social History Tobacco Use Types Packs/Day Years [...] documented as of this encounter Care Teams Customer Support Professional Relationship Specialty Start Date End Date Darcie Escalante MD [address] [place] [phone] PCP - General Internal Medicine 03/17/23 documented as of this encounter
--- OUTSIDE RECORDS SUMMARY | 2025-06-25 09:14 | XMS_ITS | Encounter Summary ---
Author Organization [employer] Address [address] [place] [address] Care Team Providers Care Stripper Soft Plastic Name Role Phone Darcie Escalante MD Primary Care Pro vider Reason for Visit * Reason Onset Date Comments chartprep 06/20/2025 Encounter Details Date Type Department Care Team ([facility] st Contact Info) Description 06/20/2025 Telephone [facility] MEDICINE [address] [place], [place] [phone] Darcie Escalante MD [address] [place] [address] chartprep Social History Tobacco Use Types Packs/Day Years [...] encounter Miscellaneous Notes * Telephone Encounter - Vero Isbell [place] - 06/20/2025 9:36 AM EDT ..Chart Prep Labs: done Images: done US Pelvis Vaccines due: Hep A Due, Hep B Due, and HPV Referrals: Not Applicable Screenings: Not Applicable Overdue care gaps: None documented in this encounter Plan of Treatment Not on file documented as of this encounter Visit Diagnoses Not on filedocumented in this encounter Additional Health Concerns Assessment Noted Time PHQ-9 Depression Total Score: 10 025 10:05 AM EDT documented as of this encounter Care Teams Stripper Soft Plastic Relationship Specialty Start Date End Date Darcie Escalante MD [address] [place] [phone] PCP - General Internal Medicine 03/17/23 documented as of this encounter
--- OUTSIDE RECORDS SUMMARY | 2025-06-25 09:14 | XMS_ITS | Encounter Summary ---
Author Organization [employer] Address [address] [place] [address] Care Team Providers Care Cushion Worker Name Role Phone Darcie Escalante MD Primary Care Pro vider Reason for Visit * Reason Onset Date Comments Med Refill 10/04/2023 Encounter Details Date Type Department Care Team ([facility] st Contact Info) Description 10/04/2023 Refill [facility] MEDICINE [address] [place] [address] Darcie Escalante MD [address] [place] [address] Social History Tobacco Use Types Packs/Day Years [...] documented as of this encounter Care Teams Cushion Worker Relationship Specialty Start Date End Date Darcie Escalante MD [address] [place] [phone] PCP - General Internal Medicine 03/17/23 documented as of this encounter
--- OUTSIDE RECORDS SUMMARY | 2025-06-25 09:14 | XMS_ITS | Encounter Summary ---
Author Organization [employer] Address [address] [facility] [address] [place] [address] Care Team Providers Care Single End Sewer Name Role Phone Darcie Escalante MD Primary Care Pro vider Encounter Details Date Type Department Care Team ([facility] st Contact Info) Description 01/15/2025 Orders Only [facility] [address] [place] [address] Provider, MD Sindi Social History Tobacco Use [...] documented as of this encounter Care Teams Single End Sewer Relationship Specialty Start Date End Date Darcie Escalante MD [address] [place] [phone] PCP - General Internal Medicine 03/17/23 documented as of this encounter
--- OUTSIDE RECORDS SUMMARY | 2025-06-25 09:14 | XMS_ITS | Encounter Summary ---
Author Organization [employer] Address [address] [place] [address] Care Team Providers Care Solo Truck Driver Name Role Phone Darcie Escalante MD Primary Care Pro vider Encounter Details Date Type Department Care Team (Latest Contact Info) Description 08/28/2019 Abstract [facility] CONVERSIONS Dental, Provider, DDS Social History [...] on filedocumented in this encounter Care Teams Solo Truck Driver Relationship Specialty Start Date End Date Darcie Escalante MD [address] [place] [phone] PCP - General Internal Medicine 03/17/23 documented as of this encounter
--- OUTSIDE RECORDS SUMMARY | 2025-06-25 09:14 | XMS_ITS | Encounter Summary ---
Author Organization [employer] Address [address] [place] [address] [address] [place] [address] Care Team Providers Care Application Development Director Name Role Phone Darcie Escalante MD Primary Care Pro vider Encounter Details Date Type Department Care Team (Latest Contact Info) Description 06/21/2025 Travel Social History Tobacco Use Types Packs/Day [...] documented as of this encounter Care Teams Application Development Director Relationship Specialty Start Date End Date Darcie Escalante MD [address] [place] [phone] PCP - General Internal Medicine 03/17/23 documented as of this encounter
--- OUTSIDE RECORDS SUMMARY | 2025-06-25 09:15 | XMS_ITS | Encounter Summary ---
Author Organization [employer] Address [address] [place] [address] Care Team Providers Care Warehouse Receiving Clerk Name Role Phone Darcie Escalante MD Primary Care Pro vider Reason for Visit * Reason Comments Med Refill Encounter Details Date Type Department Care Team ([facility] st Contact Info) Description 07/05/2024 Refill [facility] MEDICINE [address] [place] [address] Darcie Escalante MD [address] [place] [address] Social History Tobacco Use Types Packs/Day Years [...] documented as of this encounter Care Teams Warehouse Receiving Clerk Relationship Specialty Start Date End Date Darcie Escalante MD [address] [place] [phone] PCP - General Internal Medicine 03/17/23 documented as of this encounter
--- OUTSIDE RECORDS SUMMARY | 2025-06-25 09:15 | XMS_ITS | Clinical Summary ---
Author Organization [employer] Address [address] [place] [address] [address] [place] [address] Care Team Providers Care Operations Research Group Manager Name Role Phone Darcie Escalante MD [...] Increase dose monthly 2 mL 5 Active nicotine (Nicoderm CQ) 14 MG/24HR patch Place 1 patch on the skin 1 (one) time each day at the same time. 42 patch 1 5 08/20/20 25 Active Tirzepatide-Weig ht Management (Zepbound) 10 MG/0.5ML solution auto-injector Inject 0.5 mL (10 mg) under the skin 1 (one) time per week. 2 mL 3 5 05/28/20 25 Discontinu ed(Other) Active Problems Problem Noted Date Diagnosed Date Ovarian cyst 06/21/2025 Discoid lupus 02/15/2024 Abnormal echocardiogram 02/15/2024 Hypertension 12/27/2023 Primary insomnia 07/25/2023 Assessment & Plan (07/25/2023 [...] smear : 2021 neg per pt at [facility] --no able to obtain previous record [...] smear : 2021 neg per pt at [facility] -- ---- requested record to Kaila [...] schedule her for Patch testing with the Supervisor Fine Grading Continue Elidel cream, twice daily Begin Heliocare 1 cap every morning and CeraVe Mineral Sunscreen spf 50 every morning Reinforce gentle cleansers and moisturizers Return to clinic in one-week for re-evaluation. Assessment & Plan (06/26/2023 10:30 AM EDT): Pt w facial rash from record had skin bx w prior electrical manufacturing technician told to be negative x concerning autoimmune dx Possible allergic contact dermatitis from derm's note 05/2023 ESR 23 ( Elevated) , CRP wnl,total protein mild elev at 8.5, LEN neg,RF neg . -here f w electrical manufacturing technician on pimecrolimus 1% BID and minocycline 100 mg BID x 14 days -close to complete tx -continue care w electrical manufacturing technician -next apt 07/08/2023 -may need to consider to hold statins as it can be associated w eczema discuss w pt at next apt if rash still present -referred to chief pharmacist by derm pd to get apt Assessment & Plan (04/06/2023 11:28 AM EDT): Pt w facial rash from record had skin bx w prior electrical manufacturing technician told to be negative x concerning autoimmune dx Possible allergic contact dermatitis from derm's note -here f w electrical manufacturing technician started on tacrolimus topical w improvement and to keep topical steroids -to f w derm in 6 weeks -referred to chief pharmacist by derm pd to get apt -pt [...] Encounters Date Type Department Care Team Description 06/21/2025 9:00 AM EDT Office Visit [facility] [address] [place] [phone] Darcie Escalante MD Annual physical exam (Primary Dx); Primary hypertension; Obesity (BMI 30.0-34.9); Health care maintenance; Tobacco use; Cysts of both ovaries 06/21/2025 Travel 06/20/2025 Telephone [facility] [address] [place] [address] Darcie Escalante MD chartprep 06/18/2025 Orders Only GENERIC EXTERNAL DATA DEPARTMENT Provider, Generic External Data 06/13/2025 Patient Outreach [facility] [address] [place] [address] Darcie Escalante MD Care Coordination (CHW outreach for SDOH food needs-referral completed /) 06/13/2025 Patient Outreach [facility] [address] [place] [address] Darcie Escalante MD Pre-visit Planning (SDOH Screening positive and Tobacco screening negative) 05/28/2025 Orders Only [facility] [address] [place] [address] Darcie Escalante MD 05/27/2025 Refill [facility] [address] [place] [address] Darcie Escalante MD 04/03/2025 Refill [facility] [address] [place] [address] Darcie Escalante MD from Last 3 Months [...] Mass Index 29.08 06/21/2025 8:56 AM EDT Plan of Treatment Health Maintenance [...] Screening 01/23/2026 01/23/2025 Disability Screening 01/23/2026 01/23/2025 SDOH Screening 06/21/2026 06/21/2025 Tobacco Screening 06/21/2026 06/21/2025 Cervical Cancer Screening 11/15/2027 HPV/Cotest 11/15/2027 Pap [...] Procedure Name Priority Date/Time Associated Diagnosis Comments COMPLEMENT COMPONENT C4C Routine 06/18/2025 10:14 AM EDT COMPLEMENT COMPONENT C3C Routine 06/18/2025 10:14 AM EDT DNA (DS) ANTIBODY Routine 06/18/2025 10: 14 AM EDT SED RATE BY MODIFIED WESTERGREN Routine 06/18/2025 10:14 AM EDT C-REACTIVE PROTEIN Routine 06/18/2025 10 :14 AM EDT COMPREHENSIVE METABOLIC PANEL Routine 06/18/2025 10:14 AM EDT CBC WITH AUTO DIFFERENTIAL Routine 06/18/2025 10:14 AM EDT MYOGLOBIN, URINE Routine 06/18/2025 10:1 2 AM EDT URINE HEMOGLOBIN Routine 06/18/2025 10:1 2 AM EDT PROTEIN CREATININE RATIO, URINE Routine 06/18/2025 10:12 AM EDT URINALYSIS, COMPLETE Routine 06/18/2025 10:12 AM EDT HEPATITIS C AB W/REFL TO [...] Maintenance Results * (ABNORMAL) CBC auto differential (06/18/2025 10:14 AM EDT) White Blood Count 6.8 4.8 - 10.8 X10*3/uL [facility] Red Blood Count 4.37 4.20 - 5.50 X10*6/uL [facility] Hemoglobin 11.9(L) 12.0 - 16.0 g/dl [facility] Hematocrit 35.7(L) 37.0 - 47.0 % [facility] Mean Corpuscular Volume 81.7 80.0 - 98.0 fL [facility] Mean Corpuscular Hemoglobin 27.2 27.0 - 33.0 pg [facility] Mean Corpuscular HGB Conc 33.3 31.0 - 35.0 g/dl [facility] Red Cell Distribution Width 13.5 11.0 - 16.0 % [facility] Platelet Count 186 160 - 400 X10*3/uL [facility] Mean Platelet Volume 12.1 9.4 - 12.3 fL [facility] Neutrophils Percent Auto 64.8 45 - 73 % [facility] Imm Gran Pct Auto 0.4 0.0 - 0.4 % [facility] Lymphocytes Percent Auto 27.1 20 - 40 % [facility] Monocytes Percent Auto 4.5 2 - 11 % [facility] Eosinophils Percent Auto 2.6 0 - 4 % [facility] Basophils Percent Auto 0.6 0 - 2 % [facility] NRBC Pct Auto 0.0 0.0 - 0.2 /100WBC [facility] Neutrophils Absolute Auto 4.4 2.0 - 8.3 x10*3/uL [facility] Imm Gran Abs Auto 0.03 0.00 - 0.03 X10*3/uL [facility] Lymphocytes Absolute Auto 1.9 1.2 - 4.9 X10*3/uL [facility] Monocytes Absolute Auto 0.3 0.1 - 1.2 X10*3/uL [facility] Eosinophils Absolute Auto 0.2 0.0 - 0.4 X10*3/uL [facility] Basophils Absolute Auto 0.0 0.0 - 0.2 X10*3/uL [facility] NRBC Abs Auto 0.000 0.0 - 0.012 X10*3/uL [facility] 06/18/2025 10:1 4 AM EDT 06/18/2025 10:14 AM EDT Generic External Data Provider LAB BLOOD ORDERAB LES Final Result Performing Organization Address [facility] Co de Phone Number [facility] [address] [place] [phone] * DNA (ds) Antibody (06/18/2025 10:14 AM EDT) [facility] Anti DNA DS Antibody 1 IU/mL [facility] Comment:IU/mL Interpretation < or = 4 Negative 5-9 Indeterminate > or = 10 PositiveTHIS TEST WAS PERFORMED AT:[facility] [address] [id number] WEEKS MD 06/18/2025 10:1 4 AM EDT 06/18/2025 10:14 AM EDT Generic External Data Provider LAB BLOOD ORDERAB LES Final Result Performing Organization Address [facility] de Phone Number [facility] [address] [place] [phone] * (ABNORMAL) Sed Rate by Uche Carcamo (06/18/2025 10:14 AM EDT) Erythrocyte Sedimentation Rate 23(H) 0 - 20 MM/HR [facility] Comment:Patients with polycy themia and many hemoglobin abnormalitiesmay have depressed sed rates whereas patients with anemiamay have elevated sed rates. 06/18/2025 10:1 4 AM EDT 06/18/2025 10:14 AM EDT Generic External Data Provider LAB BLOOD ORDERAB LES Final Result Performing Organization Address [facility] Co de Phone Number [facility] [address] [place] [phone] * Complement Component C3c (06/18/2025 10:14 AM EDT) Complement C3 170 83 - 193 mg/dL [facility] Comment:THIS TEST WAS PERFOR MED AT:[facility] [id number] [place] [address]URFNPGENE WEEKS MD 06/18/2025 10:1 4 AM EDT 06/18/2025 10:14 AM EDT Generic External Data Provider LAB BLOOD ORDERAB LES Final Result Performing Organization Address [facility] de Phone Number [facility] [address] [place] [phone] * Complement Component C4c (06/18/2025 10:14 AM EDT) Complement C4 43 15 - 57 mg/dL [facility] Comment:THIS TEST WAS PERFOR MED AT:[facility] [id number] [place] [address]KTPTAGENE WEEKS MD 06/18/2025 10:1 4 AM EDT 06/18/2025 10:14 AM EDT us Generic External Data Provider LAB BLOOD ORDERAB LES Final Result Performing Organization Address [facility] Co de Phone Number [facility] [address] [place] [phone] * C-reactive Protein (06/18/2025 10:14 AM EDT) C Reactive Protein 0.26 < or = 0.50 mg/dL [facility] 06/18/2025 10:1 4 AM EDT 06/18/2025 10:14 AM EDT us Generic External Data Provider LAB BLOOD ORDERAB LES Final Result [facility] [address] [place] [phone] * (ABNORMAL) Comprehensive Metabolic Panel (06/18/2025 10:14 AM EDT) Sodium 139 135 - 145 mmol/L [facility] Potassium 4.3 3.3 - 5.1 mmol/L [facility] Chloride 107 96 - 108 mmol/L [facility] Carbon Dioxide 25 22 - 29 mmol/L [facility] Anion Gap 11(L) 12 - 20 [facility] Urea Nitrogen (BUN) 14 9 - 16 mg/dL [facility] Creatinine, Serum 0.79 0.5 - 1.4 mg/dL [facility] Estimated Glomerular Filt Rate >60 [facility] Comment:Chronic Kidney Disea se: Estimated GFR < 60 mL/min/1.08r2Opulbl Kidney Disease: Estimated GFR < 15 mL/min/1.73m2 Glucose 75 60 - 115 mg/dL [facility] Calcium 9.3 8.4 - 10.2 mg/dL [facility] Bilirubin, Total 0.6 0.0 - 1.0 mg/dL [facility] Aspartate Amino Transferase 17 5 - 31 U/L [facility] Alanine Aminotransferase 12 0 - 31 U/L [facility] Total Protein 8.1(H) 6.5 - 8.0 g/dL [facility] Albumin Level 4.4 3.5 - 5.0 g/dL [facility] Alkaline Phosphatase 56 39 - 117 U/L [facility] 06/18/2025 10:1 4 AM EDT 06/18/2025 10:14 AM EDT us Generic External Data Provider LAB BLOOD ORDERAB LES Final Result Performing Organization Address [facility] Co de Phone Number [facility] [address] [place] [phone] * Protein Creatinine Ratio, Urine (06/18/2025 10:12 AM EDT) Creatinine, Urine 151.66 mg/dL [facility] Protein, Total, Random Urine 9 <12 mg/dL [facility] Protein/Creati nine Ratio, Ur 0.06 <0.2 [facility] Comment:The spot urine prote in:creatinine ratio may increase to 0.3during normal . 06/18/2025 10:1 2 AM EDT 06/18/2025 10:49 AM EDT us Generic External Data Provider LAB URINE ORDERAB LES Final Result Performing Organization Address [facility] Co de Phone Number [facility] [address] [place] [phone] * (ABNORMAL) URINE HEMOGLOBIN (06/18/2025 10:12 AM EDT) Urine Hemoglobin Trace(A) [facility] 06/18/2025 10:1 2 AM EDT 06/18/2025 11:34 AM EDT us Generic External Data Provider LAB BLOOD ORDERAB LES Final Result Performing Organization Address [facility] Co de Phone Number [facility] [address] [place] [phone] * Myoglobin, Urine (06/18/2025 10:12 AM EDT) Myoglobin, Urine <1 0 - 1 mg/L [facility] Comment:The pH of this sampl e is 10. Urine for myoglobin should have thepH adjusted to between 8.0 - 9.0, as myoglobin is unstable inurine. Results may not reflect the true status of the patient.INTERPRETIVE INFORMATION: Myoglobin, UrinePatients with urine myoglobin greater than 15 mg/L are at risk ofacute renal failure. Usual results are less than 1 mg/L. Resultsbetween 1 and 15 mg/L are associated with vigorous exercise,myocardial infarction, mild muscle injury and other conditions.This test was developed and its performance characteristicsdetermined by [employer]. It has not been cleared orapproved by the [place] Food and Drug Administration. This test wasperformed in a CLIA certified laboratory and is intended forclinical purposes.THIS TEST WAS PERFORMED AT:[facility] [address]JSRWWYLZ R GENZEN,MD,PHD 06/18/2025 10:1 2 AM EDT 06/18/2025 10:49 AM EDT us Generic External Data Provider LAB URINE ORDERAB LES Final Result [facility] [address] [place] [phone] * Urinalysis Complete (06/18/2025 10:12 AM EDT) Color Urine Yellow [facility] Appearance Urine Clear [facility] PH 6.0 5.0 - 9.0 [facility] Glucose Urine UA Negative Negative mg/dL [facility] Urine Blood Negative Negative [facility] Specific [place] - Urine 1.020 1.005 - 1.025 [facility] Urine Protein Negative Neg-Trace mg/dL [facility] Urine Ketones Negative Negative mg/dL [facility] Nitrite Urine Negative Negative [facility] Leukocyte Esterase Urine Negative Negative [facility] RBC Urine 0-2 0 - 2 /HPF [facility] Urine WBC 0-5 0 - 5 /HPF [facility] Urine Squamous Epithelial Cell 3-5 0 - 2 /HPF [facility] Urine Bacteria None Seen None Seen [facility] Hyaline Casts, Urine 0-2 0 - 2 /LPF [facility] 06/18/2025 10:1 2 AM EDT 06/18/2025 10:49 AM EDT us Generic External Data Provider LAB URINE ORDERAB LES Final Result Performing Organization Address [facility]/ZIP Co de Phone Number [facility] [address] [place] [phone] * Hepatitis C Antibody with Reflex to HCV, RNA, Quantitative, Real-Time PCR (08/07/2024 8:40 AM EDT) Hepatitis C Antibody Nonreactive Nonreactive [facility] Comment:Antibodies to HCV no t detected; does not exclude early acuteHCV infection. Blood Venous blood specimen / Unknown 08/07/2024 8:40 AM EDT 08/07/2024 11:11 AM EDT us Darcie Joel MD LAB BLOOD ORDERAB LES Final Result Performing Organization Address [facility] Co de Phone Number [facility] [address] [place] [phone] * HIV-1/2 Antigen and Antibodies, Fourth Generation, with Reflexes (08/07/2024 8:40 AM EDT) HIV AB/AG Nonreactive Nonreactive [facility] Comment:HIV-1 p24 Ag and/or HIV-1/HIV-2 Ab not detected.A test result that is nonreactive does not exclude thepossibility of exposure to or infection with HIV-1 and/orHIV-2. Nonreactive results in this assay for individualswith prior exposure to HIV-1 and/or HIV-2 may be due toantigen and antibody levels that are below the limit ofdetection of this assay.The [employer]sheet HIV Ag/Ab Combo assay result andsupplemental assay results should be interpreted inconjunction with the patient's clinical presentation,history and other laboratory results. If the results areinconsistent with clinical evidence, additional testing issuggested to confirm the result. Blood Venous blood specimen / Unknown 08/07/2024 8:40 AM EDT 08/07/2024 11:11 AM EDT us Darcie Joel MD LAB BLOOD ORDERAB LES Final Result [facility] [address] [place] [address] [phone] * (ABNORMAL) Lipid Panel, Standard (08/07/2024 8:40 AM EDT) Triglycerides 198(H) <150 mg/dL [facility] Comment:Desirable Triglyceri de: less than 150 mg/dLBorderline High Triglyceride 150-199 mg/dLHigh Triglyceride: 200-499 mg/dLVery High Triglyceride: greater than or equal to 5OO mg/dL Cholesterol 179 <200 mg/dL [facility] Comment:Desirable Cholestero l: less than 200 mg/dLBorderline High Cholesterol: 200-239 mg/dLHigh Cholesterol: greater than 239 mg/dL LDL Cholesterol Calculated 96 <100 mg/dL [facility] Comment:Desirable LDL: less than 100 mg/dLNear Optimal/Above Optimal LDL: 110- 129 mg/dLBorderline High LDL: 130-159 mg/dLHigh LDL: 160-189 mg/dLVery High LDL: greater than or equal to 190 mg/dL HDL Cholesterol 44 >40 mg/dL [facility] Comment:Desirable HDL: great er than 40 mg/dL Note: This HDL assay may give artificially low results in patients with liver disease. Blood Venous blood specimen / Unknown 08/07/2024 8:40 AM EDT 08/07/2024 11:11 AM EDT us Darcie Joel MD LAB BLOOD ORDERAB LES Final Result [facility] [address] [place] [phone] * HM PAP/HPV (11/15/2022 10:55 AM EST) us Historical Provider HEALTH MAINTENANCE Final Result from Last 3 Months or Most Recently Relevant to Health Maintenance Insurance [address] [place], [place] [address] Care Teams Operations Research Group Manager Relationship Specialty Start Date End Date Darcie Escalante MD [address] [place] [address] PCP - General Internal Medicine 03/17/23
--- OUTSIDE RECORDS SUMMARY | 2025-06-25 09:15 | XMS_ITS | Clinical Summary ---
Author Organization [facility] [address] [place] [address] [place] [phone] Phone Care Team Providers Care Alarm Investigator Name Role Phone Juana Kim MD Primary [...] 02/08/2022 Overview (10/11/2024): Patient attached results to [employer] message. Fatty liver disease, nonalcoholic 10/28/2020 Transaminitis 09/09/2020 Overview (10/11/2024): Liver sono shows hepatic steatosis Obesity (BMI 30-39.9) 11/28/2019 Allergic rhinitis 2018 Encounters Date Type Department Care Team Description 04/15/2025 9:14 AM EDT - 04/15/2025 11:59 PM EDT Hospital Encounter Radiology Department - [address] [phone] Bulky or enlarged uterus Discharge Disposition: Home or Self Care 04/10/2025 9:45 AM EDT Office Visit Obstetrics and Gynecology - [address] [phone] Caitie Reyes, BRENNAN Encounter for gynecological examination [...] 06/26/2025 10:30 AM EDT Appointment Radiology Department [address] [phone] Health Maintenance Due Date Last Done Comments [...] Signed Date: 04/15/2025 11:40 ET Workstation ID: [id number] Transcribed By: Self Edit Transcribed Date: 04/15/2025 [...] Signed Date: 04/15/2025 11:40 ET Workstation ID: [id number] Transcribed By: Self Edit Transcribed Date: 04/15/2025 11:34 ET Caitie Reyes CNM IMG US PROCEDURES Final Result * Hepatitis C antibody (04/10/2025 10:51 AM EDT) Hepatitis C Antibody Negative Negative LAB CHEMISTRY METHOD 04/10/2025 3:36 PM EDT [facility] Blood Venous blood specimen / Unknown Venipuncture / Unknown 04/10/2025 10:51 AM EDT 04/10/2025 10:51 AM EDT Caitie Reyes CNM LAB BLOOD ORDERABLES Final Res ult [facility] [address] [place] [address], * HIV 1,2 antibody, p24 antigen with reflex to differentiation (04/10/2025 10:51 AM EDT) HIV Combo AB/AG Negative Negative LAB CHEMISTRY METHOD 04/10/2025 3:36 PM EDT [facility] Blood Venous blood specimen / Unknown Venipuncture / Unknown 04/10/2025 10:51 AM EDT 04/10/2025 10:51 AM EDT Narrative [facility] - 04/10/2025 3:36 PM EDT This assay is a 4th generation assay allowing for earlier detection of HIV infection by detecting the presence of the HIV-1 p24 antigen as well as the traditional antibodies to HIV type 1 (including group O) and type 2. Use of a 4th generation assay is the current CDC recommendation for HIV screening. Caitie Reyes [facility] BLOOD ORDERABLES Final Res ult Performing Organization Address [facility]/ZIP Co de Phone Number [facility] [address] [place] [address], [place] [phone] * Hepatitis B surface antigen with reflex to confirmation (04/10/2025 10:51 AM EDT) Hepatitis B Surface Ag Negative Negative LAB CHEMISTRY METHOD 04/10/2025 3:07 PM EDT [facility] Blood Venous blood specimen / Unknown Venipuncture / Unknown 04/10/2025 10:51 AM EDT 04/10/2025 10:51 AM EDT Narrative [facility] - 04/10/2025 3:07 PM EDT Over the counter supplements containing high doses of biotin may interfere with this assay. If interference is suspected, patients shoud be retested after refraining from biotin supplements for 72 hours. Caitie Reyes [facility] BLOOD ORDERABLES Final Res ult Performing Organization Address [facility] de Phone Number [facility] [address] [place] [address], [place] [phone] * Treponema pallidum antibody with reflex to RPR and particle agglutination (04/10/2025 10:51 AM EDT) [facility] T. Pallidum Antibodies Negative Negative LAB CHEMISTRY METHOD 04/10/2025 4:40 PM EDT [facility] Blood Venous blood specimen / Unknown Venipuncture / Unknown 04/10/2025 10:51 AM EDT 04/10/2025 10:51 AM EDT Caitie Reyes [facility] BLOOD ORDERABLES Final Res ult Performing Organization Address City/[facility]/ZIP Co de Phone Number [facility] [address] [place] [address], [place] [phone] * Trichomonas vaginalis antigen (04/10/2025 10:39 AM EDT) [facility] Trichomonas vaginalis Negative Negative 04/10/2025 7:14 PM EDT [facility] Swab Vaginal structure / Unknown Non-blood Collection / Unknown 04/10/2025 10:39 AM EDT 04/10/2025 10:39 AM EDT us Caitie Reyes CNM LAB MICROBIOLOGY - GENERAL ORD ERABLES Final Result [facility] [address] [place] [address], [place] [phone] * Chlamydia trachomatis and Neisseria gonorrhoeae molecular study (04/10/2025 10:39 AM EDT) [facility] Neisseria gonorrhoeae PCR Negative Negative LAB MOLECULAR DIAGNOSTICS METHOD 04/11/2025 8:47 AM EDT [facility] Chlamydia trachomatis PCR Negative Negative LAB MOLECULAR DIAGNOSTICS METHOD 04/11/2025 8:47 AM EDT [facility] Swab Cervix uteri structure / Unknown Non-blood Collection / Unknown 04/10/2025 10:39 AM EDT 04/10/2025 10:39 AM EDT Caitie Reyes CNM LAB MICROBIOLOGY - GENERAL ORD ERABLES Final Result [facility] [address] [place] [address], [place] [phone] * Cervical Cancer Screening: HPV (11/24/2022) [facility] Cervical Cancer Screening: HPV abstracted, negative [...] Maintenance Insurance MEDICAID - [place] Care Teams Alarm Investigator Relationship Specialty Start Date End Date Juana Kim MD [address] [place] [phone] PCP - General Internal Medicine 04/09/25
--- OUTSIDE RECORDS SUMMARY | 2025-06-25 09:15 | XMS_ITS | Clinical Summary ---
Author Organization [facility] spital Address [address] [place] [address] Phone Care Team Providers Care Electric Fan Assembler Name Role Phone [facility] Primary Care Provider [phone] [facility] [phone] Encounters Date Type Department Care Team Description 05/13/2025 9:05 AM EDT [facility] [address] [place] [address] 05/13/2025 Travel 05/13/2025 Orders Only [facility] Genetics Metabolism [address] [place] [phone] Sandra Ron MD Family history of genetic [...] patient's age to complete this topic Insurance [facility] Member Subscriber Plan / Payer (Ef fective 2025-Present) Name:LAETA ROSENBAUM Relation to Subscriber:Self Name:Maddy Aleta Subscriber ID:Not on file Payer ID:Not on file Group ID:Not on file Type:Not on file Address: [facility] CUSTOMER SERV.ATTN:CLAIMS [address] [place], [place] Care Teams Electric Fan Assembler Relationship Specialty Start Date End Date [facility] [address] [facility] [address] PCP - General 05/13/25 [facility] [address] [place] [address] PCP - Insurance Identified PCP 05/13/25
== END 2025-06-25 09:12 | disposition home or self-care (01) ==
LOC: HO.RHES 08:35
PROVIDERS: PCP Student in an Organized Health Care Education/Training Program; Visit Provider Student in an Organized Health Care Education/Training Program
DX: L93.1 Subacute cutaneous lupus erythematosus (principal); R31.9 Hematuria, unspecified; M25.561 Pain in right knee; M25.562 Pain in left knee; G89.29 Other chronic pain; G56.03 Carpal tunnel syndrome, bilateral upper limbs; Z51.81 Encounter for therapeutic drug level monitoring; Z79.620 Long term (current) use of immunosuppressive biologic; Z79.631 Long term (current) use of antimetabolite agent
CPT/HCPCS: 99215

== ENCOUNTER → 2025-06-25 08:35 | Outpatient (BNVA) | payer MEDICAID, SELFPAY | PROVIDERS: PCP Student in an Organized Health Care Education/Training Program; Visit Provider Student in an Organized Health Care Education/Training Program | DX: L93.1 Subacute cutaneous lupus erythematosus (principal); M25.561 Pain in right knee; M25.562 Pain in left knee; G56.03 Carpal tunnel syndrome, bilateral upper limbs; Z51.81 Encounter for therapeutic drug level monitoring; Z79.620 Long term (current) use of immunosuppressive biologic; R31.9 Hematuria, unspecified; G89.29 Other chronic pain; Z79.631 Long term (current) use of antimetabolite agent | CPT/HCPCS: 99212 ==

== ENCOUNTER 2025-09-21 08:58 | Outpatient (REF) | payer MEDICAID, SELFPAY ==
--- OUTSIDE RECORDS SUMMARY | 2025-09-21 09:01 | XMS_ITS | Encounter Summary ---
Author Organization [employer] Address [address] [place] [address] Care Team Providers Care Director Of Recruitment And Admissions Name Role Phone Darcie Escalante MD Primary Care Pro vider Reason for Visit * Reason Comments Med Refill Encounter Details Date Type Department Care Team ([facility] st Contact Info) Description 07/31/2025 Refill [facility] MEDICINE [address] [place] [address] Darcie Escalante MD [address] [place] [address] Social History Tobacco Use Types Packs/Day Years [...] Care Team (Late st Contact Info) Description 09/24/2025 9:00 AM EST Office Visit [facility] MEDICINE [address] [place] [phone] Darcie Escalante MD [address] [place] [address] documented as of this encounter Visit Diagnoses Not on filedocumented in this encounter Additional Health Concerns Assessment Noted Time PHQ-9 Depression Total Score: 10 025 10:05 AM EDT documented as of this encounter Care Teams Director Of Recruitment And Admissions Relationship Specialty Start Date End Date Darcie Escalante MD [address] [place] [phone] PCP - General Internal Medicine 03/17/23 documented as of this encounter
--- OUTSIDE RECORDS SUMMARY | 2025-09-21 09:01 | XMS_ITS | Encounter Summary ---
Author Organization [employer] Address [address] [place] [address] Care Team Providers Care Fisher Trawl Net Name Role Phone Darcie Escalante MD Primary Care Pro vider Encounter Details Date Type Department Care Team (Latest Contact Info) Description 08/28/2019 Abstract [facility] CONVERSIONS Dental, Provider, DDS Social History [...] Description 09/24/2025 9:00 AM EST Office Visit [facility] MEDICINE [address] [place] [address] Darcie Escalante MD [address] [place] [address] documented as of this encounter Visit Diagnoses Not on filedocumented in this encounter Care Teams Fisher Trawl Net Relationship Specialty Start Date End Date Darcie Escalante MD [address] [place] [address] [phone] PCP - General Internal Medicine 03/17/23 documented as of this encounter
--- OUTSIDE RECORDS SUMMARY | 2025-09-21 09:01 | XMS_ITS | Encounter Summary ---
Author Organization [employer] Address [address] [place] [address] Care Team Providers Care Insurance Biller Name Role Phone Darcie Escalante MD Primary Care Pro vider Reason for Visit * Reason Onset Date Comments Med Refill 07/03/2025 Encounter Details Date Type Department Care Team ([facility] st Contact Info) Description 07/03/[address] [facility] MEDICINE [address] [place] [address] Darcie Escalante MD 230 [place] [address] Social History Tobacco Use Types Packs/Day Years [...] Description 09/24/2025 9:00 AM EST Office Visit [facility] MEDICINE [address] [place] [address] Darcie Escalante MD [address] [place] [address] documented as of this encounter Visit Diagnoses Not on filedocumented in this encounter Additional Health Concerns Assessment Noted Time PHQ-9 Depression Total Score: 10 025 10:05 AM EDT documented as of this encounter Care Teams Insurance Biller Relationship Specialty Start Date End Date Darcie Escalante MD [address] [place] [address] [phone] PCP - General Internal Medicine 03/17/23 documented as of this encounter
--- OUTSIDE RECORDS SUMMARY | 2025-09-21 09:01 | XMS_ITS | Encounter Summary ---
Author Organization [employer] Address [address] [place] [address] Care Team Providers Care Solid Tire Finisher Name Role Phone Darcie Escalante MD Primary Care Pro vider Reason for Visit * Reason Comments Med Refill Encounter Details Date Type Department Care Team ([facility] st Contact Info) Description 05/27/2025 Refill [facility] MEDICINE [address] [place] [address] Darcie Escalante MD [address] [place] [address] Social History Tobacco Use Types Packs/Day Years [...] Description 09/24/2025 9:00 AM EST Office Visit [facility] MEDICINE [address] [place] [address] Darcie Escalante MD [address] [place] [address] documented as of this encounter Visit Diagnoses Not on filedocumented in this encounter Additional Health Concerns Assessment Noted Time PHQ-9 Depression Total Score: 10 025 10:05 AM EDT documented as of this encounter Care Teams Solid Tire Finisher Relationship Specialty Start Date End Date Darcie Escalante MD [address] [place] [phone] PCP - General Internal Medicine 03/17/23 documented as of this encounter
--- OUTSIDE RECORDS SUMMARY | 2025-09-21 09:01 | XMS_ITS | Encounter Summary ---
Author Organization [employer] Address [address] [place] [address] Care Team Providers Care Human Relations Manager Name Role Phone Darcie Escalante MD Primary Care Pro vider Reason for Visit * Reason Comments Med Refill Encounter Details Date Type Department Care Team ([facility] st Contact Info) Description 07/05/2024 Refill [facility] MEDICINE [address] [place] [address] Darcie Escalante MD [address] [place] [address] Social History Tobacco Use Types Packs/Day Years [...] Description 09/24/2025 9:00 AM EST Office Visit [facility] MEDICINE [address] [place] [address] Darcie Escalante MD [address] [place] [address] documented as of this encounter Visit Diagnoses Not on filedocumented in this encounter Additional Health Concerns Assessment Noted Time PHQ-9 Depression Total Score: 9 06/19/20 24 10:11 AM EDT documented as of this encounter Care Teams Human Relations Manager Relationship Specialty Start Date End Date Darcie Escalante MD [address] [place] [phone] PCP - General Internal Medicine 03/17/23 documented as of this encounter
--- OUTSIDE RECORDS SUMMARY | 2025-09-21 09:01 | XMS_ITS | Encounter Summary ---
Author Organization [employer] Address [address] [place] [address] Care Team Providers Care Digital Marketing Assistant Name Role Phone Darcie Escalante MD Primary Care Pro vider Reason for Visit * Reason Onset Date Comments Med Refill 08/06/2025 Encounter Details Date Type Department Care Team ([facility] st Contact Info) Description 08/06/2025 Refill [facility] MEDICINE [address] [place] [address] Darcie Escalante MD [address] [place] [address] Social History Tobacco Use Types Packs/Day Years [...] Description 09/24/2025 9:00 AM EST Office Visit [facility] MEDICINE [address] [place] [phone] Darcie Escalante MD [address] [place] [address] documented as of this encounter Visit Diagnoses Not on filedocumented in this encounter Additional Health Concerns Assessment Noted Time PHQ-9 Depression Total Score: 10 025 10:05 AM EDT documented as of this encounter Care Teams Digital Marketing Assistant Relationship Specialty Start Date End Date Darcie Escalante MD [address] [place] [address] [phone] PCP - General Internal Medicine 03/17/23 documented as of this encounter
--- OUTSIDE RECORDS SUMMARY | 2025-09-21 09:01 | XMS_ITS | Encounter Summary ---
Author Organization [employer] Address [address] [place] [address] Care Team Providers Care Data Management Manager Name Role Phone Darcie Escalante MD Primary Care Pro vider Encounter Details Date Type Department Care Team (Latest Contact Info) Description 01/15/2021 Abstract [facility] CONVERSIONS Dental, Provider, DDS Social History [...] Care Team ( st Contact Info) Description 09/24/2025 9:00 AM EST Office Visit [facility] MEDICINE [address] [place] [address] Darcie Escalante MD [address] [place] [address] documented as of this encounter Visit Diagnoses Not on filedocumented in this encounter Care Teams Data Management Manager Relationship Specialty Start Date End Date Darcie Escalante MD [address] [place] [phone] PCP - General Internal Medicine 03/17/23 documented as of this encounter
--- OUTSIDE RECORDS SUMMARY | 2025-09-21 09:01 | XMS_ITS | Encounter Summary ---
Author Organization [employer] Address [address] [place] [address] Care Team Providers Care Activities Therapist Name Role Phone Darcie Escalante MD Primary Care Pro vider Reason for Visit * Reason Onset Date Comments Med Refill 02/07/2024 Encounter Details Date Type Department Care Team ([facility] st Contact Info) Description 02/07/2024 Refill [facility] MEDICINE [address] [place] [address] Darcie Escalante MD [address] [place] [address] Social History Tobacco Use Types Packs/Day Years [...] Description 09/24/2025 9:00 AM EST Office Visit [facility] MEDICINE [address] [place] [address] Darcie Escalante MD [address] [place] [address] documented as of this encounter Visit Diagnoses Not on filedocumented in this encounter Additional Health Concerns Assessment Noted Time PHQ-9 Depression Total Score: 8 04/06/20 10:44 AM EDT documented as of this encounter Care Teams Activities Therapist Relationship Specialty Start Date End Date Darcie Escalante MD [address] [place] [phone] PCP - General Internal Medicine 03/17/23 documented as of this encounter
--- OUTSIDE RECORDS SUMMARY | 2025-09-21 09:01 | XMS_ITS | Clinical Summary ---
Author Organization [facility] Address [address] [place], [place] [phone] Phone Care Team Providers Care Manager Research Name Role Phone [facility] Primary Care Provider [phone] Center, [facility] Unavailable Social History Tobacco Use Types Packs/Day Years [...] (1 of 1 - Standard series) 01/11/1988 Anemia Screening 1999 Varicella Vaccines (1 of 2 - 13+ 2-dose series) 01/11/2000 Hepatitis B Vaccines (1 of 3 - 19+ 3-dose series) 2006 DTaP/Tdap/Td Vaccines (2 - Td or Tdap) 07/31/2018 07/03/2018 Influenza Vaccine (#1) 2025 , 09/14/2022, 07/21/2021, Additional history exists Chlamydia and Gonorrhea Screening 04/10/2026 04/10/2025 Hepatitis C Screening Completed 08/07/2024 HIB Vaccines Aged Out No longer eligi ble based on patient's age to complete this topic HPV Vaccines (No Doses Required) Completed Hepatitis A Vaccines Aged Out No long [...] patient's age to complete this topic [facility] Care Teams Manager Research Relationship Specialty Start Date End Date [facility] [address] [place] [address] PCP - General 05/13/25 [facility] [address] [place] [address] PCP - Insurance Identified PCP 05/13/25
--- OUTSIDE RECORDS SUMMARY | 2025-09-21 09:01 | XMS_ITS | Clinical Summary ---
Author Organization [facility] Address [address] [place] [address] Phone Care Team Providers Care Wrapper Selector Name Role Phone Sher Perkins MD Primary Care Provider [phone] Allergies No known active allergies Medications cetirizine [...] 2 - PCV) 2006 PAP SMEAR 01/11/2008 INFLUENZA VACCINE (#1) 2025 , 10/29/2020, 10/19/2019, Additional history exists COVID-19 VACCINE ( season) 2025 09/02/2021, 12/19/2020, 11/27/2020 Adult Td,Tdap Booster 07/03/2028 [...] topic Medical Devices Not on file Insurance [facility] [address] [place] [address] [facility] [employer] [address] [place] [address] [facility] [employer] Care Teams Wrapper Selector Relationship Specialty Start Date End Date Sher Perkins MD [address] [place] [address] PCP - General Internal Medicine 03/29/22 Additional Source Comments The information contained in this document represents components of the legal health record. It is not the complete legal health record.[facility]
--- OUTSIDE RECORDS SUMMARY | 2025-09-21 09:01 | XMS_ITS | Encounter Summary ---
Author Organization [employer] Address [address] [place] [address] Care Team Providers Care Flooring Installer Name Role Phone Darcie Escalante MD Primary Care Pro vider Reason for Visit * Reason Onset Date Comments Med Refill 10/04/2023 Encounter Details Date Type Department Care Team ([facility] st Contact Info) Description 10/04/2023 Refill [facility] MEDICINE [address] [place] [address] Darcie Escalante MD 230 [place] [address] Social History Tobacco Use Types Packs/Day Years [...] Description 09/24/2025 9:00 AM EST Office Visit [facility] MEDICINE [address] [place] [address] Darcie Escalante MD [address] [place] [address] documented as of this encounter Visit Diagnoses Not on filedocumented in this encounter Additional Health Concerns Assessment Noted Time PHQ-9 Depression Total Score: 8 04/06/20 10:44 AM EDT documented as of this encounter Care Teams Flooring Installer Relationship Specialty Start Date End Date Darcie Escalante MD [address] [place] [phone] PCP - General Internal Medicine 03/17/23 documented as of this encounter
--- OUTSIDE RECORDS SUMMARY | 2025-09-21 09:01 | XMS_ITS | Encounter Summary ---
Author Organization [employer] Address [address] [place] [address] Care Team Providers Care Medical Office Receptionist Name Role Phone Darcie Escalante MD Primary Care Pro vider Reason for Visit * Reason Comments Med Refill Encounter Details Date Type Department Care Team ([facility] st Contact Info) Description 07/18/2025 Refill [facility] MEDICINE [address] [place] [address] Darcie Escalante MD [address] [place] [address] Social History Tobacco Use Types Packs/Day Years [...] EST Office Visit [facility] MEDICINE [address] [place] [address] Darcie Escalante MD [address] [place] [phone] documented as of this encounter Visit Diagnoses Not on filedocumented in this encounter Additional Health Concerns Assessment Noted Time PHQ-9 Depression Total Score: 10 025 10:05 AM EDT documented as of this encounter Care Teams Medical Office Receptionist Relationship Specialty Start Date End Date Darcie Escalante MD [address] [place] [phone] PCP - General Internal Medicine 03/17/23 documented as of this encounter
--- OUTSIDE RECORDS SUMMARY | 2025-09-21 09:01 | XMS_ITS | Clinical Summary ---
Author Organization [employer] Address [address] [place] [address] [address] [place] [address] Care Team Providers Care Transmission Calibration Engineer Name Role Phone Darcie Escalante MD [...] MOUTH AT BEDTIME NEEDED 12/11/19 25 Active nicotine (Nicoderm CQ) 14 MG/24HR patch Place 1 patch on the skin 1 (one) time each day at the same time. 42 patch 1 06/21/20 25 Active Tirzepatide-Weig ht Management (Zepbound) 15 MG/0.5ML solution auto-injector Inject 0.5 mL (15 mg) as directed 1 (one) time per week. INJECT ONE PEN (=15 MG) SUBCUTANEOUSLY ONCE A WEEK 2 mL 3 07/03/20 25 Active Active Problems Problem Noted Date [...] smear : 2021 neg per pt at [facility] --no able to obtain previous record [...] smear : 2021 neg per pt at [facility] -- ---- requested record to Kaila [...] schedule her for Patch testing with the Cardio Tech Continue Elidel cream, twice daily Begin Heliocare 1 cap every morning and CeraVe Mineral Sunscreen spf 50 every morning Reinforce gentle cleansers and moisturizers Return to clinic in one-week for re-evaluation. Assessment & Plan (06/26/2023 10:30 AM EDT): Pt w facial rash from record had skin bx w prior medical aide told to be negative x concerning autoimmune dx Possible allergic contact dermatitis from derm's note 05/2023 ESR 23 ( Elevated) , CRP wnl,total protein mild elev at 8.5, LEN neg,RF neg . -here f w medical aide on pimecrolimus 1% BID and minocycline 100 mg BID x 14 days -close to complete tx -continue care w medical aide -next apt 07/08/2023 -may need to consider to hold statins as it can be associated w eczema discuss w pt at next apt if rash still present -referred to cmm operator by derm pd to get apt Assessment & Plan (04/06/2023 11:28 AM EDT): Pt w facial rash from record had skin bx w prior medical aide told to be negative x concerning autoimmune dx Possible allergic contact dermatitis from derm's note -here f w medical aide started on tacrolimus topical w improvement and to keep topical steroids -to f w derm in 6 weeks -referred to cmm operator by derm pd to get apt -pt [...] Encounters Date Type Department Care Team Description 09/11/2025 Patient Outreach [facility] [address] [place] [phone] Darcie Escalante MD Pre-visit Planning (SDOH screening was completed on 06/21/2025) 08/07/2025 Refill [facility] [address] [place] [address] Darcie Escalante MD 08/06/2025 Refill [facility] [address] [place] [address] Darcie Escalante MD 08/01/2025 [facility] [place] [address] Darcie Escalante MD 07/31/2025 Refill [facility] [address] [facility] [place] [address] Darcie Escalante MD 07/30/2025 Orders Only [facility] [address] [facility] [place] [address] Darcie Escalante MD Cyst of ovary, unspecified laterality (Primary Dx); Subacute cutaneous lupus erythematosus 07/30/2025 Telephone [facility] [address] [facility] [place] [address] Darcie Escalante MD Referral 07/18/2025 Refill [facility] [address] [facility] [place] [address] Darcie Escalante MD 07/05/2025 Telephone [facility] 230 [place] [address] Darcie Escalante MD Dec. recall 07/03/2025 Refill [facility] [address] [facility] [place] [address] Darcie Escalante MD 07/02/2025 Refill [facility] [address] [facility] [place] [address] Darcie Escalante MD 06/21/2025 9:00 AM EDT Office Visit [facility] [address] [facility] [place] [address] Darcie Escalante MD Annual physical exam (Primary Dx); Primary hypertension; Obesity (BMI 30.0-34.9); Health care maintenance; Tobacco use; Cysts of both ovaries 06/21/2025 Travel from Last 3 Months Immunizations Immunization Administration [...] 06/21/2025 8:56 AM EDT Plan of Treatment Upcoming Encounters Date Type Department Care Team ([facility] st Contact Info) Description 09/24/2025 9:00 AM EST Office Visit [facility] [address] [place] [phone] Darcie Escalante MD [address] [place] [address] Health Maintenance Due Date Last Done Comments Family Planning (PISQ) 2002 HPV Vaccines (1 - 3-dose series) 2002 Hepatitis A Vaccines (1 of 2 - Risk 2-dose series) 2006 Hepatitis B Vaccines (1 of 3 - 19+ 3-dose series) 2006 COVID-19 Vaccine ( season) 2025 08/07/2024, 01/20/2023, 09/02/2021, Additional history [...] older (1 - 1-dose 75+ series) 2062 HIV Screening Completed 08/07/2024, 06/06/2023 Hepatitis C [...] AM EDT) Hepatitis C Antibody Nonreactive Nonreactive [facility] Comment:Antibodies to HCV no t detected; does not exclude early acuteHCV infection. Blood Venous blood specimen / Unknown 08/07/2024 8:40 AM EDT 08/07/2024 11:11 AM EDT us Darcie Joel MD LAB BLOOD ORDERAB LES Final Result Performing Organization Address [facility]/ZIP Co de Phone Number [facility] [address] [place] [phone] * HIV-1/2 Antigen and Antibodies, Fourth Generation, with Reflexes (08/07/2024 8:40 AM EDT) HIV AB/AG Nonreactive Nonreactive [facility] Comment:HIV-1 p24 Ag and/or HIV-1/HIV-2 Ab not detected.A test result that is nonreactive does not exclude thepossibility of exposure to or infection with HIV-1 and/orHIV-2. Nonreactive results in this assay for individualswith prior exposure to HIV-1 and/or HIV-2 may be due toantigen and antibody levels that are below the limit ofdetection of this assay.The [employer] HIV Ag/Ab Combo assay result andsupplemental assay results should be interpreted inconjunction with the patient's clinical presentation,history and other laboratory results. If the results areinconsistent with clinical evidence, additional testing issuggested to confirm the result. Blood Venous blood specimen / Unknown 08/07/2024 8:40 AM EDT 08/07/2024 11:11 AM EDT us Darcie Joel MD LAB BLOOD ORDERAB LES Final Result Performing Organization Address [facility]/ZIP Co de Phone Number [facility] [address] [place] [phone] * (ABNORMAL) Lipid Panel, Standard (08/07/2024 8:40 AM EDT) Triglycerides 198(H) <150 mg/dL [facility] Comment:Desirable Triglyceri de: less than 150 mg/dLBorderline High Triglyceride 150-199 mg/dLHigh Triglyceride: 200-499 mg/dLVery High Triglyceride: greater than or equal to 5OO mg/dL Cholesterol 179 <200 mg/dL [facility] Comment:Desirable Cholestero l: less than 200 mg/dLBorderline High Cholesterol: 200-239 mg/dLHigh Cholesterol: greater than 239 mg/dL LDL Cholesterol Calculated 96 <100 mg/dL [facility] Comment:Desirable LDL: less than 100 mg/dLNear Optimal/Above Optimal LDL: 110- 129 mg/dLBorderline High LDL: 130-159 mg/dLHigh LDL: 160-189 mg/dLVery High LDL: greater than or equal to 190 mg/dL HDL Cholesterol 44 >40 mg/dL [facility] Comment:Desirable HDL: great er than 40 mg/dL Note: This HDL assay may give artificially low results in patients with liver disease. Blood Venous blood specimen / Unknown 08/07/2024 8:40 AM EDT 08/07/2024 11:11 AM EDT Darcie Joel MD LAB BLOOD ORDERAB LES Final Result [facility] [address] [place] [phone] * HM PAP/HPV (11/15/2022 10:55 AM EST) us Historical Provider HEALTH MAINTENANCE Final Result from Last 3 Months or Most Recently Relevant to Health Maintenance Insurance [facility] C[facility] Care Teams Transmission Calibration Engineer Relationship Specialty Start Date End Date Darcie Escalante MD [address] [place] [phone] PCP - General Internal Medicine 03/17/23
--- OUTSIDE RECORDS SUMMARY | 2025-09-21 09:01 | XMS_ITS | Encounter Summary ---
Author Organization [employer] Address [address] [place] [address] Care Team Providers Care Buffet Attendant Name Role Phone Darcie Escalante MD Primary Care Pro vider Reason for Visit * Reason Onset Date Comments Med Refill 04/03/2025 Encounter Details Date Type Department Care Team ([facility] st Contact Info) Description 04/03/2025 Refill [facility] [address] [place] [address] Darcie Escalante MD [address] [place] [address] Social History Tobacco Use Types Packs/Day Years [...] Description 09/24/2025 9:00 AM EST Office Visit [facility] [address] [place] [address] Darcie Escalante MD [address] [place] [phone] documented as of this encounter Visit Diagnoses Not on filedocumented in this encounter Additional Health Concerns Assessment Noted Time PHQ-9 Depression Total Score: 10 025 10:05 AM EDT documented as of this encounter Care Teams Buffet Attendant Relationship Specialty Start Date End Date Darcie Escalante MD [address] [place] [address] [phone] PCP - General Internal Medicine 03/17/23 documented as of this encounter
--- OUTSIDE RECORDS SUMMARY | 2025-09-21 09:01 | XMS_ITS | Encounter Summary ---
Author Organization [employer] Address [address] [place] [address] Care Team Providers Care Rig Welder Name Role Phone Darcie Escalante MD Primary Care Pro vider Reason for Visit * Reason Comments Med Refill Encounter Details Date Type Department Care Team ([facility] st Contact Info) Description 08/01/2025 Refill [facility] [address] [place] [address] Darcie Escalante MD [address] [place] [address] Social History Tobacco Use Types Packs/Day Years [...] Description 09/24/2025 9:00 AM EST Office Visit [facility] [address] [place] [phone] Darcie Escalante MD [address] [place] [phone] documented as of this encounter Visit Diagnoses Not on filedocumented in this encounter Additional Health Concerns Assessment Noted Time PHQ-9 Depression Total Score: 10 025 10:05 AM EDT documented as of this encounter Care Teams Rig Welder Relationship Specialty Start Date End Date Darcie Escalante MD [address] [place] [phone] PCP - General Internal Medicine 03/17/23 documented as of this encounter
--- OUTSIDE RECORDS SUMMARY | 2025-09-21 09:01 | XMS_ITS | Clinical Summary ---
Author Organization [facility] [address] [place] [address] [place] [phone] Phone Care Team Providers Care Transactional Attorney Name Role Phone Juana Kim MD Primary [...] 02/08/2022 Overview (10/11/2024): Patient attached results to [facility] message. Fatty liver disease, nonalcoholic 10/28/2020 Transaminitis 09/09/2020 Overview (10/11/2024): Liver sono shows hepatic steatosis Obesity (BMI 30-39.9) 11/28/2019 Allergic rhinitis 2018 Encounters Date Type Department Care Team Description 08/01/2025 9:15 AM EDT Office Visit Obstetrics and Gynecology - [address] [phone] Phyllis Bertrand, Bilateral ovarian cysts (Primary Dx) 06/26/2025 9:57 AM EDT - 06/26/2025 11:59 PM EDT Hospital Encounter Radiology Department - [address] [phone] Bulky or enlarged uterus Discharge Disposition: Home or Self Care from Last 3 Months Immunizations Immunization Administration Dates Next Due Influenza Quadravalent, MDCK [...] drink = 0.6 oz pur e alcohol) Housing Instability Answer Date Recorde d Are you worried that in the next 2 months you may not have stable housing? No 07/25/2025 Food Access & Nutrition Answer Date Rec orded Do you have access to a vari ety of food including fruits and vegetables? Yes 07/25/2025 Access to Healthcare Answer Date Record ed Within the last 3 months, ho w many times did you visit the emergency department for your medical care? 0 07/25/2025 Health Literacy Answer Date Recorded How often do you need to hav e someone help you when you read instructions, pamphlets, or other written material from your doctor or pharmacy? Rarely 07/25/2025 Caregiver: How often do you need to have someone help you when you read instructions, pamphlets, or other written material from your doctor or pharmacy? Not on file 07/25/2025 Financial Risk Answer Date Recorded How hard is it for you to pa y for the very basics like food, housing, medical care, and air conditioning / heating? Very hard 07/25/2025 Transportation Answer Date Recorded Has the lack of transportati on kept you from meetings, work, or from getting things needed for daily living? No Has the lack of transportati on kept you from medical appointments or from getting medications? No 07/25/2025 Social Isolation Answer Date Recorded How often do you feel lonely or isolated from th ose around you? Often 07/25/2025 Food Risk Answer Date Recorded Within the past 12 months we worried whether our food would run out before we got money to buy more. Sometimes true 025 Within the past 12 months th e food we bought just didn't last and we didn't have money to get more. Sometimes true 07/25/2025 Dependent Care Answer Date Recorded Do you need help finding or paying for care for your loved ones. For example, children's author or elderly care for an older adult? No 07/25/2025 Education Answer Date Recorded Do you think completing more education or training, like finishing a GED, going to college, or learning a trade, would be helpful for you? Unable to respond 07/25/2025 Employment and Income Answer Date Recor ded During the last four weeks, have you been actively looking for work? Yes 07/25/2025 Living Situation Answer Date Recorded What is your living situation? Unrecognized valu e 07/25/2025 Comments No Sex and Gender Information Value [...] Ectopic Multiple Livin g Live Births 3 2 2 0 0 0 2 2 Date Outcome GA Total Labor Labor//3rd Weight Sex Type Anes PTL Tracy A1 A5 Name Clin 2008 Term M CS-Un spec Living 2011 Term F CS-Un spec Living Last Filed Vital Signs Vital Sign Reading Time Taken Comments Blood Pressure 132/88 08/01/2025 8:57 AM EDT Pulse 83 08/01/2025 8:57 AM EDT Temperature - - Respiratory Rate 16 08/01/2025 8:57 AM EDT Oxygen Saturation - - Inhaled Oxygen Concentration - - Weight 74.6 kg (164 lb 6.4 oz) 04/10/2025 9:52 A M EDT Height 157.5 cm (5' 2 ) 08/01/2025 8:57 AM EDT Body Mass Index 30.07 04/10/2025 9:52 AM EDT Plan of Treatment Health Maintenance Due Date Last Done Comments Hepatitis B Vaccines (1 of 3 - 19+ 3-dose series) 2006 HPV Vaccines (1 - 3-dose SCDM series) 2014 COVID-19 Vaccine ( season) 2025 08/07/2024, 01/20/2023, 09/02/2021, Additional history exists Influenza Vaccine (#1) 2025 , 09/14/2022, 07/21/2021, Additional history exists Hypertension/CHF/CAD Annual BMP Blood Test 06/18/2026 06/18/2025, 02/21/2025 Social Influencers of Health Screening 07/25/2026 07/25/2025 Cervical Cancer Screening: HPV 11/24/2027 11/24/2022 DTaP,Tdap,and Td Vaccines (2 - Td or Tdap) 07/03/2028 07/03/2018 Cholesterol Screening (Lipid Panel) 08/07/2029 08/07/2024, 05/03/2022 RSV Immunization Adult Patients (1 - 1-dose 75+ series) 2062 HIV Screening Completed 04/10/2025, 07/24, 11/15/2022 Hepatitis C Screening Completed 04/10/2025 , 08/07/2024, 11/15/2022 Depression Screening Completed 07/25/2025 HIB Vaccines Aged Out No longer eligi [...] Associated Diagnosis Comments US PELVIS NON OB LIMITED OR FOLLOWUP Routine 06/26/2025 10:35 AM EDT Bulky or enlarged uterus HEPATITIS C ANTIBODY Routine 04/10/2025 10:51 AM EDT Screen for STD (sexually transmitted disease) HIV 1, 2 ANTIBODY, P24 ANTIGEN WITH REFLEX TO DIFFERENTIATION Routine 04/10/2025 10:51 AM EDT Screen for STD (sexually transmitted disease) HM HPV Routine 11/24/2022 LIPID PANEL Routine 05/03/2022 from Last 3 Months or Most Recently Relevant to Health Maintenance Results * US Pelvis Non OB Limited or Followup (06/26/2025 10:35 AM EDT) Anatomical Region Laterality Modality Body, Pelvis Ultrasound 06/26/2025 1:55 PM EDT Impressions 06/26/2025 1:59 PM EDT Bilateral ovarian cysts are not significantly changed. Fibroid uterus. -------- FINAL REPORT -------- Dictated By: Anne Quiroz Dictated Date: 06/26/2025 13:55 ET Assigned Physician: Anne Quiroz Reviewed and Electronically Signed By: Anne Quiroz Signed Date: 06/26/2025 13:59 ET Workstation ID: [id number] Transcribed By: Self Edit Transcribed Date: 06/26/2025 13:55 ET Narrative 06/26/2025 1:59 PM EDT US PELVIS NON OB LIMITED OR FOLLOWUP PELVIC ULTRASOUND History: Follow-up large bilateral ovarian simple cysts. Procedure: Real-time and color Doppler pelvic and transvaginal ultrasound. Comparison: Pelvic ultrasound 04/15/2025. FINDINGS: The uterus was normal in size for the patient's age and demonstrated normal endometrial stripe echogenicity. The uterus measures 10.4 x 4.2 x 5.5 cm for a volume of 126 cc, contains a 1.1 x 1.0 x 1.1 cm left posterior intramural fibroid. Endometrial stripe measures 6 mm. Transvaginal sonographic examination was performed for better evaluation of the adnexa. However, ovaries are best seen transabdominally. Right ovary measures 13.1 x 9.5 x 13.9 cm for a volume of 906 cc, contains a 12.1 x 8.4 x 12.4 cm simple cyst, previously 13.2 x 9.1 x 12.3 cm. Left ovary measures 11.7 x 8.4 x 10.0 cm for a volume of 515 cc, contains a 9.5 x 7.9 x 9.9 cm simple cyst, previously 10.3 x 8.0 x 9.8 cm.. No free fluid was demonstrated. Procedure Note Anne Quiroz MD - 06/26/2025 US PELVIS NON OB LIMITED OR FOLLOWUP PELVIC ULTRASOUND History: Follow-up large bilateral ovarian simple cysts. Procedure: Real-time and color Doppler pelvic and transvaginal ultrasound. Comparison: Pelvic ultrasound 04/15/2025. FINDINGS: The uterus was normal in size for the patient's age anddemonstrated normal endometrial stripe echogenicity. The uterus [id number] x 4.2 x 5.5 cm for a volume of 126 cc, contains a 1.1 x 1.0 x 1.1 cmleft posterior intramural fibroid. Endometrial stripe measures 6 mm. Transvaginal sonographic examination was performed for better evaluationof the adnexa. However, ovaries are best seen transabdominally. Rightovary measures 13.1 x 9.5 x 13.9 cm for a volume of 906 cc, contains a12.1 x 8.4 x 12.4 cm simple cyst, previously 13.2 x 9.1 x 12.3 cm. Left ovary measures 11.7 x 8.4 x 10.0 cm for a volume of 515 cc, containsa 9.5 x 7.9 x 9.9 cm simple cyst, previously 10.3 x 8.0 x 9.8 cm.. Nofree fluid was demonstrated. IMPRESSION: Bilateral ovarian cysts are not significantly changed. Fibroid uterus. -------- FINAL REPORT -------- Dictated By: Anne Quiroz Dictated Date: 06/26/2025 13:55 ET Assigned Physician: Anne Quiroz Reviewed and Electronically Signed By: Anne Quiroz Signed Date: 06/26/2025 13:59 ET Workstation ID: [id number] Transcribed By: Self Edit Transcribed Date: 06/26/2025 13:55 ET us Caitie Reyes CNM IM US PROCEDURES Final Result * Hepatitis C antibody (04/10/2025 10:51 AM EDT) Hepatitis C Antibody Negative Negative LAB CHEMISTRY METHOD 04/10/2025 3:[address] [facility] Blood Venous blood specimen / Unknown Venipuncture / Unknown 04/10/2025 10:51 AM EDT 04/10/2025 10:51 AM EDT Caitie Reyes [facility] BLOOD ORDERABLES Final Res ult Performing Organization Address [facility]/ZIP Co de Phone Number [facility] [address] [place] [address], [place] [phone] * HIV 1,2 antibody, p24 antigen with reflex to differentiation (04/10/2025 10:51 AM EDT) [facility] HIV Combo AB/AG Negative Negative LAB CHEMISTRY METHOD 04/10/2025 3:[address] [facility] Blood Venous blood specimen / Unknown Venipuncture / Unknown 04/10/2025 10:51 AM EDT 04/10/2025 10:[address] [facility] - 04/10/2025 3:36 PM EDT This assay is a 4th generation assay allowing for earlier detection of HIV infection by detecting the presence of the HIV-1 p24 antigen as well as the traditional antibodies to HIV type 1 (including group O) and type 2. Use of a 4th generation assay is the current CDC recommendation for HIV screening. Caitie Michele Reyes [facility] BLOOD ORDERABLES Final Res ult Performing Organization Address City/[facility]/ZIP Co de Phone Number [facility] [address] [place] [address], [place] [phone] * Cervical Cancer Screening: HPV (11/24/2022) [employer] Cervical Cancer Screening: HPV abstracted, negative us Historical Provider HEALTH MAINTENANCE Final Result * (ABNORMAL) Lipid panel (05/03/2022) LDL/HDL Ratio 7(A) 0 - 4 Triglycerides 247(A) 0 - 150 mg/dL Cholesterol 234(A) 0 - 200 mg/dL HDL 36(A) >=40 mg/dL LDL Cholesterol 149(A) 0 - 100 mg/dL Blood Venous blood specimen / Unknown Historical Provider LAB BLOOD ORDERABLES Jennifer l Result from Last 3 Months or Most Recently Relevant to Health Maintenance Insurance MEDICAID - [place] Care Teams Transactional Attorney Relationship Specialty Start Date End Date Juana Kim MD [address] [place] [address] PCP - General Internal Medicine 04/09/25
--- OUTSIDE RECORDS SUMMARY | 2025-09-21 09:01 | XMS_ITS | Encounter Summary ---
Author Organization [employer] Address [address] [place] [address] Care Team Providers Care Talent Engineer Name Role Phone Darcie Escalante MD Primary Care Pro vider Reason for Visit * Reason Comments Med Refill Encounter Details Date Type Department Care Team ([facility] st Contact Info) Description 08/07/2025 Refill [facility] [address] [place] [address] Darcie Escalante MD [address] [place] [address] Social History Tobacco Use Types Packs/Day Years [...] Description 09/24/2025 9:00 AM EST Office Visit [facility] [address] [place] [phone] Darcie Escalante MD [address] [place] [phone] documented as of this encounter Visit Diagnoses Not on filedocumented in this encounter Additional Health Concerns Assessment Noted Time PHQ-9 Depression Total Score: 10 025 10:05 AM EDT documented as of this encounter Care Teams Talent Engineer Relationship Specialty Start Date End Date Darcie Escalante MD [address] [place] [phone] PCP - General Internal Medicine 03/17/23 documented as of this encounter
--- OUTSIDE RECORDS SUMMARY | 2025-09-21 09:01 | XMS_ITS | Encounter Summary ---
Author Organization [employer] Address [address] [facility] [address] [place] [address] Care Team Providers Care Human Resources Manager Manufacturing Name Role Phone Darcie Escalante MD Primary Care Pro vider Encounter Details Date Type Department Care Team ([facility] st Contact Info) Description 01/15/2025 Orders Only [facility] [address] [place] [address] Provider, MD Sindi Social History Tobacco Use [...] Description 09/24/2025 9:00 AM EST Office Visit [facility] [address] [place] [phone] Darcie Escalante MD [address] [place] [phone] documented as of this encounter Procedures Procedure [...] as of this encounter Care Teams Human Resources Manager Manufacturing Relationship Specialty Start Date End Date Darcie Escalante MD [address] [place] [phone] PCP - General Internal Medicine 03/17/23 documented as of this encounter
[2025-09-21 10:48] LABS: Cholesterol 217 mg/dL (<200); HDL Cholesterol 53 mg/dL (>40); Iron 50 mcg/dL (30-160); Percent Iron Saturation 16 % (15-50); Total Iron Binding Capacity 310 mcg/dL (228-428); Triglycerides 180 mg/dL (<150); Unsaturated Iron Binding 260 ug/dL
[2025-09-21 11:05] LABS: Folate 5.4 ng/mL (> or = 4.0); Vitamin B12 294 pg/mL (200-900)
[2025-09-21 11:06] LABS: Ferritin 27 ng/mL (10-122)
== END 2025-09-21 08:59 | disposition home or self-care (01) ==
LOC: HO.LAB 08:58
PROVIDERS: PCP Student in an Organized Health Care Education/Training Program; Visit Provider Student in an Organized Health Care Education/Training Program
DX: Z00.00 Encounter for general adult medical examination without abnormal findings (principal)
CPT/HCPCS: 36415; 80061; 82306; 82607; 82728; 82746; 83036; 83540; 84443